=== PATIENT | female | born 1960 | race Caucasian/White ===

== ENCOUNTER 2019-01-27 00:48 | Outpatient (CLI) | payer MEDICAID, SELFPAY ==
--- NOTE | 2019-01-27 10:18 | DI.MAMMO_ITS ---
EXAM: MG MAMMO SCREENING CLINICAL HISTORY: SCREENING Z12.39... TECHNIQUE: Bilateral full field digital CC and MLO mammographic images were obtained with 3D tomosyn thesis and utilizing computer aided detection (CAD). COMPARISON: Available for comparison. FINDINGS: Masses/Architectural Distortion: None seen. Microcalcifications: No suspicious pleomorphic-type are seen. Skin Thickening/Nipple Retraction: None. IMPRESSION: 1. No significant interval change with no specific features of malignancy noted. 2. Unless there is more urgent need, screening mammography is recommended, as per [employer] guidelines. ACR BI-RAD Category- 1 Negative Breast Density - Category B - Scattered areas of fibroglandular density A negative radiographic report should not delay biopsy if a dominant or clinically suspicious mass is present. Up to ten percent of cancers are not identified on mammography. A negative report may reinforce clinical impression. Adenosis and dense breasts may obscure an underlying neoplasm. False positive reports average 6 to 10%.
== END 2019-01-27 01:08 ==
PROVIDERS: PCP Nurse Practitioner; Visit Provider Nurse Practitioner
DX: Z12.31 Encounter for screening mammogram for malignant neoplasm of breast (principal)
CPT/HCPCS: 77063; 77067

== ENCOUNTER 2019-01-27 09:38 | Outpatient (REF) | payer MEDICAID, SELFPAY ==
--- NOTE | 2019-01-27 09:20 | PAPFT_PTH ---
PATIENT: Fadia Galeana LOC: [facility] U#:[id number] AGE/SX: 58/F ROOM: RE01/27/[address]: Martha Elmore : 1960 BED: DIS: 01/27/2019 SPEC #: [id number] RECD: 01/27/19 13:03 STATUS: BLAKE REDayron #: [id number] HEIDI: 01/27/19 09:[address]: Martha Elmore DEPT: [facility] Cytology RECD BY: Dominga Drew ENTERED: 01/27/19 13:04 SP TYPE: PAPFT OTHR DR: Clara Solomon Tissues: 1 - CX/ENDOCX FOR PAP SMEARS Procedures: PAP THIN PREP/UVM Screening HPV DNA PROBE Comments: [id number]
== END 2019-01-27 09:58 ==
LOC: LBN 09:38
PROVIDERS: PCP Nurse Practitioner; Visit Provider Obstetrics & Gynecology Gynecology
DX: Z12.4 Encounter for screening for malignant neoplasm of cervix (principal); Z11.51 Encounter for screening for human papillomavirus (HPV)
CPT/HCPCS: 88142; 87624

== ENCOUNTER 2019-01-30 13:25 | Emergency (ER) | payer MEDICAID, SELFPAY ==
[2019-01-30 13:28] VITALS: BP 143/79; PULSE 82; RESP 18; TEMP 36.6; O2SAT 93
--- NOTE | 2019-01-30 13:40 | DI.RAD_ITS ---
EXAM: XR CHEST 2V PA AND LATERAL INDICATION: cough/sob. COMPARISON: CHEST 2 VIEWS PA,LAT from 09/25/2017 TECHNIQUE: 2D digital imaging was performed. FINDINGS: HEART IS NOT ENLARGED. LUNGS APPEAR CLEAR AND WELL EXPANDED. NO PLEURAL EFFUSION SEEN. IMPRESSION: NO EVIDENCE OF ACUTE INTRAPULMONARY PROCESS
--- NOTE | 2019-01-30 13:44 | ED.GENADUL_ITS ---
Discharge Plan Disposition Patient Disposition: HOME Condition: Improving Discharge Details Chief Complaint: RespSymp Clinical Impression: COPD exacerbation Primary Care Provider: Clara Solomon ED Provider: Carlee Saunders Home Meds and New Rx's Prescriptions: New azithromycin 250 mg tablet See Rx Instructions .ROUTE .COMPLEX Qty: 6 RF: 0 ipratropium-albuterol 0.5 mg-3 mg(2.5 mg base)/3 mL solution for nebulization 3 ml IH QID PRN (Reason: shortness of breath) Qty: 90 RF: 0 prednisone 10 mg tablet 10 mg PO DAILY Qty: 30 RF: 0 Continued albuterol sulfate [ProAir HFA] 8.5 GM HFA aerosol inhaler 2 gm Inhalation PRN PRNRF: 0 Symbicort 10.2 GM HFA aerosol inhaler 2 puff Inhalation BID RF: 0 ipratropium-albuterol 3 ML solution for nebulization 3 ml Inhalation PRN PRN (Reason: COPD) RF: 0 Anoro Ellipta 1 EACH blister with device 1 puff HHN DAILY RF: 0 Discharge Instructions Instructions: COPD (Chronic Obstructive Pulmonary Disease) (ED) Additional Instructions: Push fluids by mouth. Use nebulizer every 6 hours as discussed if needed for shortness of breath or wheezing. Use prednisone as prescribed. Antibiotic as prescribed. Follow-up promptly with your mold maker plaster and your primary care doctor. Return for any worsening or concerns sooner if needed Medical Decision Making Spoke with respiratory who did ambulating O2. O2 sats on ambulation 91%. Bedside ambulating O2 97% at rest with O2 monitor on the earlobe. Peripheral oxygen sensor reporting low 90s high 80s. Patient reports this is not atypical for her. Patient reports no difficulty breathing with ambulation. Will provide single dose of 60 mg steroid and then 40 mg with a taper. Respiratory will assist in patient getting a nebulizer machine for home as hers is broken. Encouraged close follow-up as an outpatient, respiratory therapy will reach out to her mold maker plaster to expedite appointment. Will provide antibiotic as patient has reported increased in febrile sensation and measured temperature in the last few days compared to the last 10 days of illness. Patient agrees with plan of care. Respiratory therapy did also evaluate the patient. She is well-known to the respiratory therapist as they have done pulmonary therapy together in the past. They did use an ear O2 when ambulating and identified no drop below 91%. No decompensation on ambulation. Patient able to ambulate without difficulty. Patient reports this is her baseline. Discussed the need for oxygen therapy on a baseline she has had in the past versus nebulizer machine at this time. Respiratory therapy will also encourage her mold maker plaster to fit her in sooner for reevaluation. At this time all parties involved feel comfortable with outpatient management and return for worsening. HPI General Date/Time Provider Initiated Documentation: 01/30/19 13:39 . HPI Narrative: Patient presents for complaints of cough and shortness of breath. Patient reports she has been sick with cough and cold symptoms for approximately 1-1/2 weeks. Patient reports nasal congestion, headache, sore throat and intermittently productive cough. Related Data Home Medications Medication Instructions Recorded Confirmed Symbicort 2 puff INHALATION BID 04/16/15 01/27/19 albuterol sulfate [ProAir HFA] 2 gm INHALATION PRN PRN 04/16/15 01/27/19 ipratropium-albuterol 3 ml INHALATION PRN PRN 08/19/15 01/27/19 Anoro Ellipta 1 puff HHN DAILY 09/25/17 01/27/19 azithromycin See Rx Instructions .ROUTE 01/30/19 .COMPLEX #6 tab ipratropium-albuterol 3 ml IH QID PRN #90 ml 01/30/19 prednisone 10 mg PO DAILY #30 tab 01/30/19 Previous Rx's Medication Instructions Recorded azithromycin See Rx Instructions .ROUTE 01/30/19 .COMPLEX #6 tab ipratropium-albuterol 3 ml IH QID PRN #90 ml 01/30/19 prednisone 10 mg PO DAILY #30 tab 01/30/19 Allergies Allergy/AdvReac Type Severity Reaction Status Date / Time naproxen sodium [From Aleve] AdvReac Mild Nausea Unverified 01/27/19 09:07 General Stated Complaint: RespSymp CHRIS: 3 Review of Systems Review of Systems Narrative: CONSTITUTIONAL: Reports fevers, chills in the last few days. EYES: Denies vision changes, blurry vision, or eye pain. ENT: Denies hearing changes, tinnitus, vertigo, sore throat. CARDIAC: Denies chest pain. Shortness of breath present when ambulating RESPIRATORY: Denies difficulty breathing. Wheezing, cough, production GASTROINTESTINAL: Denies abdominal pain, changes in bowel, vomiting or nausea. GENITOURINARY: Denies dysuria, or frequency of urination. MUSCULOSKELETAL: Denies Joint pain, gait changes. NEUROLOGIC: Denies headaches, Denies focal weakness. Denies numbness. INTEGUMENT: Denies rashes. PSYCHIATRIC: Denies behavior changes. Denies anxiety or depression. ENDOCRINOLOGY: Denies fatigue. 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 Tobacco use (Acute) 01/2019 patient reports 2 cigarettes/day Surgical History Fistula, anal (Resolved) Repaired with 2003 H/O tubal ligation (Chronic) 1986 Social History Smoking/Tobacco Use Status: Former Tobacco Use Alcohol Intake: never Drug use: Never Substance use type: does not use Do you feel safe at home: Yes Do you feel safe in your relationship?: Yes History History 4 Para Hx # Term Pregnancies 2 Multiple births Hx # Pregnancies Ectopic pregnancies AB induced Hx Number of Living Children AB spontaneous Exam Narrative Exam Narrative: CONST: Healthy appearing patient, in no acute distress. Well hydrated. Alert and alert. HENMT: Head nomocephalic, normal to inspection. Atraumatic. Hearing grossly normal. EYES: General normal appearance. Alignment normal. Eyelids normal. Conjunctiva normal. NECK: Normal visual inspection. FROM. Trachea midline. No Midline tenderness. CHEST: Normal insepection of the chest. RESP: Normal respiratory effort. Speaking full sentences. Patient with diffuse wheezing noted throughout all lung rose. No retractions. CARDIO: No JVD. MUSCULOSKELETAL: Normal Gait. FROM of all extremities. SKIN: Normal. Dry. No rashes. NEURO: Alert and awake. Speech clear. PSYCH: Normal affect. Cooperative. Course Vital Signs Vital signs: Vital Signs Temperature 36.6 C 01/30/19 13:28 Pulse 82 01/30/19 13:28 Respiratory Rate 18 01/30/19 13:28 Blood Pressure 143/79 H 01/30/19 13:28 Pulse Oximetry 93 L 01/30/19 13:28 Temperature 36.6 C 01/30/19 13:28 Temperature Source Skin 01/30/19 13:28 Pulse 82 01/30/19 13:28 Respiratory Rate 18 01/30/19 13:28 Blood Pressure 143/79 H 01/30/19 13:28 Blood Pressure Position Sitting 01/30/19 13:28 Pulse Oximetry 93 L 01/30/19 13:28 Oxygen Delivery Method Room Air 01/30/19 13:28 Oxygen Flow Rate 0 01/30/19 13:28
[2019-01-30 13:45] VITALS: RESP 4; O2SAT 90
[2019-01-30] MEDS: Albuterol/Ipratropium 3 ML UPD VIAL UPD ×2 (13:45→14:29)
[2019-01-30 14:28] LABS: Lactate 1.2 mmol/L (0.6-1.4)
[2019-01-30 14:29] VITALS: PULSE 86; O2SAT 92
[2019-01-30 14:31] LABS: Abs Immature Grans 0.08 k/cumm (0.0-0.09); Absolute Basophil Count 0.03 k/cumm (0.0-0.2); Absolute Eosinophil Count 0.11 k/cumm (0.0-0.7); Absolute Lymphocyte Count 2.25 k/cumm (1.2-3.4); Absolute Monocyte Count 0.73 k/cumm (0.11-0.7); Absolute Neutrophil Count 5.83 k/cumm (1.2-6.7); Basophils % 0.3; Eosinophils % 1.2; HCT 49.1 % (36.0-46.0); HGB 15.9 g/dL (12.0-15.5); Immature Grans % 0.9; Lymphocytes % 24.9; Mean Corp. HGB Concentration 32.4 g/dL (32.0-36.0); Mean Corpuscular Hemoglobin 27.7 pg (27.0-33.0); Mean Corpuscular Volume 85.4 fL (80-95); Mean Platelet Volume 9.7 fL (8.0-11.0); Monocytes % 8.1; Neutrophils % 64.6; Platelet Count 119 x1000/uL (130-400); RBC 5.75 m/cumm (4.00-5.20); RBC Distribution Width 14.2 % (11.7-14.6); White Blood Cell Count 9.03 k/cumm (4.4-10.8)
[2019-01-30 14:49] LABS: ALT 16 U/L (14-59); AST 15 U/L (15-37); Albumin 3.6 g/dL (3.4-5.0); Alkaline Phosphatase 112 U/L (46-116); BUN 15 mg/dL (7-18); Bilirubin, Total 0.4 mg/dL (0.2-1.0); CREATININE 0.78 mg/dL (0.55-1.02); Calcium 8.7 mg/dL (8.5-10.1); Chloride 105 mmol/L (98-107); Glucose 96 mg/dL (70-100); Potassium 3.6 mmol/L (3.5-5.1); Sodium 142 mmol/L (136-145); Total Protein 7.4 g/dL (6.4-8.2)
[2019-01-30] MEDS: predniSONE 20 MG TAB 60 MG PO (15:38)
[2019-01-30 15:59] VITALS: BP 112/69; PULSE 98; RESP 18; TEMP 37.1; O2SAT 92
== END 2019-01-30 16:20 | disposition home or self-care (01) ==
PROVIDERS: Emergency Provider Physician Assistant; PCP Nurse Practitioner
DX: J44.1 Chronic obstructive pulmonary disease with (acute) exacerbation (principal); J00 Acute nasopharyngitis [common cold]; F17.210 Nicotine dependence, cigarettes, uncomplicated
CPT/HCPCS: 36415; 80053; 94640; 99284; 71046; 83605; 85025; J7512; J7620

== ENCOUNTER 2019-02-18 17:20 | Outpatient (REF) | payer MEDICAID, SELFPAY ==
[2019-02-18 15:30] LABS: Bilirubin Negative (Negative); Blood Trace-intact (Negative); Clarity Clear (Clear); Glucose Negative (Negative); Ketones Negative (Negative); Leukocyte Esterase Negative (Negative); Nitrite Negative (Negative); Specific Gravity 1.015 (1.005-1.025); Urobilinogen 0.2 EU/dL (Up TO 0.2)
[2019-02-18 15:45] LABS: Bacteria Negative HPF (Negative); C & S Indicated? No; Casts Negative LPF (Negative); Crystals Negative HPF (Negative); Epithelial Cells Rare HPF (Negative); Mucus Negative (Negative); Other Cells Negative (Negative); RBC 0-2 (0-2); WBC Negative HPF (0-5)
== END 2019-02-18 17:40 ==
LOC: LBN 17:20
PROVIDERS: PCP Nurse Practitioner; Visit Provider Nurse Practitioner Gerontology
DX: R31.9 Hematuria, unspecified (principal)
CPT/HCPCS: 81003; 81015

== ENCOUNTER 2019-03-27 12:45 | Outpatient (RCR) | payer MEDICAID, SELFPAY | END 2019-04-12 23:59 | disposition home or self-care (01) | LOC: PRC 12:45 | PROVIDERS: PCP Nurse Practitioner; Visit Provider Family Medicine | DX: Z51.89 Encounter for other specified aftercare (principal) ==

== ENCOUNTER 2019-04-03 03:46 | Outpatient (RCR) | payer MEDICAID, SELFPAY | END 2019-04-12 23:59 | disposition home or self-care (01) | LOC: PRC 03:46 | PROVIDERS: PCP Nurse Practitioner; Visit Provider Family Medicine | DX: Z51.89 Encounter for other specified aftercare (principal) ==

== ENCOUNTER 2019-11-27 16:15 | Outpatient (REF) | payer MEDICAID, SELFPAY ==
--- NOTE | 2019-11-27 15:00 | SKI_PTH ---
PATIENT: Fadia Galeana LOC: [facility] U#:[id number] AGE/SX: 59/F ROOM: RE11/27/[address]: Mingo Quezada : 1960 BED: DIS: 11/27/2019 SPEC #: [id number] RECD: 11/27/19 18:17 STATUS: BLAKE REQ #: [id number] HEIDI: 11/27/19 15:[address]: Mingo Quezada DEPT: Surgical Specimen RECD BY: Dominga Drew ENTERED: 11/27/19 18:17 SP TYPE: SARA FIELD DR: Clara Solomon Tissues: 1 - SKIN CYST/TAG/DEBRIDEMENT Procedures: SKIN LEVEL 4 Comments: [id number]
== END 2019-11-27 16:35 ==
LOC: NCHCN 16:15
PROVIDERS: PCP Nurse Practitioner; Visit Provider Family Medicine
DX: B07.8 Other viral warts (principal)
CPT/HCPCS: 88304; 88305

== ENCOUNTER 2020-02-09 16:26 | Outpatient (REF) | payer MEDICAID, SELFPAY ==
[2020-02-11 15:09] LABS: Patient Race White; SARS-CoV-2 RNA Undetected (Undetected); SARS-CoV-2 Specimen Source Nasal
== END 2020-02-09 16:46 ==
LOC: NCHCN 16:26
PROVIDERS: PCP Nurse Practitioner; Visit Provider Nurse Practitioner Family
DX: R06.02 Shortness of breath (principal)
CPT/HCPCS: U0003

== ENCOUNTER 2020-03-10 02:35 | Outpatient (CLI) | payer MEDICAID, SELFPAY ==
--- NOTE | 2020-03-10 12:55 | DI.CTLCSR_ITS ---
EXAM: CT CHEST LUNG CANCER SCREEN CLINICAL HISTORY: SCREENING FOR LUNG CA,CURRENT SMOKER, F17.200 TECHNIQUE: COMPARISON: CT CHEST - LUNG CANCER SCREENING from 10/23/2017 FINDINGS: CT examination of chest was performed utilizing low-dose lung cancer screening protocol. Examination is of somewhat limited technical quality due to the patient's body habitus. There appear to be pulm onary emphysematous changes. No focal consolidation. No pulmonary nodule seen. No pleural effusion or pleural-based mass. Note is made of coronary artery calcification. There is no mediastinal or hilar adenopathy by noncon trast criteria. Tracheobronchial tree appears intact. Images obtained through the upper abdomen are of limited technical quality, no gross abnormality of t he liver or spleen. IMPRESSION: No pulmonary nodule identified. Lung RADS Cat 1 - Negative: No nodules and definitely benign nodules Continue annual screening with LD CT in 12 months. RADIATION DOSE DELIVERED: 90.59mGy.cm Total DLP
== END 2020-03-10 02:55 ==
PROVIDERS: PCP Nurse Practitioner; Visit Provider Internal Medicine
DX: F17.210 Nicotine dependence, cigarettes, uncomplicated (principal)
CPT/HCPCS: G0297

== ENCOUNTER 2020-03-11 08:09 | Emergency (ER) | payer MEDICAID, SELFPAY ==
[2020-03-11] VITALS (21 sets, daily range): BP systolic 117–150; BP diastolic 58–78; PULSE 83–89; RESP 4–8; TEMP 37.2; O2SAT 88–96
--- NOTE | 2020-03-11 08:15 | RT.EKG_ITS ---
APPROVED REPORT Exam: Resting ECG Patient Location: E HR:88 bpm ECG Measurements Heart Rate 88 AXIS SC 152 P 82 QRSd 83 QRS -4 QT 343 T 52 QTc 416 Conclusion Sinus rhythm...normal P axis, V-rate 60- 99 Low voltage, extremity and precordial leads...extremity<0.5mV, precordial<1.0mV. No acute change from previous. I have reviewed and interpreted ECG and agree with software generated interpretation.
--- NOTE | 2020-03-11 08:32 | ED.GENADUL_ITS ---
Discharge Plan Disposition Patient Disposition: HOME Condition: Stable Discharge Details Clinical Impression: COPD exacerbation Primary Care Provider: Clara Solomon ED Provider: Sue Cuevas Home Meds and New Rx's Prescriptions: New prednisone 20 mg tablet 60 mg PO DAILY 5 Days Qty: 15 RF: 0 Continued (DME) Briefs, Adult-Extra Large [facility] See Rx Instructions .ROUTE .MEDSUPPLY Qty: 120 RF: 11 All Day Allergy (cetirizine) 10 mg capsule 10 mg PO DAILY RF: 0 albuterol sulfate [ProAir HFA] 8.5 GM HFA aerosol inhaler 2 gm Inhalation PRN PRNRF: 0 budesonide-formoterol [Symbicort] 10.2 GM HFA aerosol inhaler 2 puff Inhalation BID RF: 0 ipratropium-albuterol 0.5 mg-3 mg(2.5 mg base)/3 mL solution for nebulization 3 ml IH QID PRN (Reason: shortness of breath) Qty: 90 RF: 0 Anoro Ellipta 1 EACH blister with device 1 puff HHN DAILY RF: 0 Discharge Instructions Instructions: COPD (Chronic Obstructive Pulmonary Disease) (ED) Additional Instructions: Follow up with primary care provider in 3-5 days. Return to ED sooner if any worsening or concerns. Increase oral fluids. Take prednisone as directed. Take your inhalers as previously prescribed. Return for any fever, productive cough. Please keep your previously scheduled appointment. Referrals: Clara Solomon [Primary Care Provider] - Medical Decision Making 59-year-old female presents to the ED with chief complaint of COPD exacerbation. She reports shortness of breath that began approximately 2 weeks ago and has worsened over time. She states that she finished a stent of prednisone 2 weeks ago at that time and that is when the shortness of breath returned. She has bilateral expiratory wheezing throughout all lung rose. She denies any chest pain, nausea vomiting diarrhea, or fever. She does endorse chills. She also reports increased swelling to her bilateral lower extremities which began approximately 2 to 3 days ago. She does have a history of COPD, obesity, depression, and is a former smoker. 08 43: Respiratory at bedside for nebulizer treatment. At this time a DuoNeb was ordered. Patient is satting 96% on room air, work-up ordered including CBC, CMP, troponin, EKG, chest x-ray and proBNP due to the lower extremity swelling to rule out CHF exacerbation. 49: EKG was reviewed by Shirley Sandra MD ER attending, please see her official reading and report. 14: Spoke with RT after nebulizer treatment, patient improved somewhat with rest and nebulizer treatment. She did take her inhalers this morning but not her nebulizers. At this time labs are pending. EXAM: XR PORTABLE CHEST AP CLINICAL HISTORY: SOB, Hx COPD, PUI. TECHNIQUE: 2D digital imaging was performed. COMPARISON: CR XR CHEST 2V PA LATERAL from 01/30/2019 FINDINGS: LUNGS: Clear. No pleural abnormality seen. HEART: Normal. MEDIASTINUM: Normal. OTHER FINDINGS: None. IMPRESSION: No acute pulmonary findings. Discussed results with patient and reevaluation she reports that she feels much better after the nebulizer treatment. O2 sats are resting around 89 to 92% on room air. I explained that this is what she normally runs, she does have a PCP appointment tomorrow regarding placing patient on home O2 which I feel will improve her symptoms at this time. There is no evidence for pneumonia labs are all largely within normal limits. CBC shows W white blood cell count of 10.44, RBCs 5.51, platelets are 121, sodium is 141, potassium 4.5, anion gap is 1.8, BUN 20, creatinine 0.87 GFR is greater than 60. BNP is 100. Troponin is less than 0.05. Urinalysis shows trace blood no leukocyte or nitrites. Discussed strict return instructions, verbalized understanding. Instructed to keep her appointment tomorrow as previously scheduled. Medical Records Medical records reviewed: Yes I reviewed the patient's medical records. Medical records narrative: Patient had a CT of her chest yesterday, IMPRESSION: No pulmonary nodule identified. Lung RADS Cat 1 - Negative: No nodules and definitely benign nodules Continue annual screening with LD CT in [address] shows pulmonary emphysema, test changes. No focal consolidation. No pleural effusion or pleural-based mass. HPI General Mode of arrival: ambulatory . Date/Time Provider Initiated Documentation: 03/11/20 08:12 . Limitations to Documentation: no limitations . Information obtained by: patient . HPI Narrative: 59-year-old female presents to the ED with chief complaint of COPD exacerbation. She reports shortness of breath that began approximately 2 weeks ago and has worsened over time. She states that she finished a stent of prednisone 2 weeks ago at that time and that is when the shortness of breath returned. She has bilateral expiratory wheezing throughout all lung rose. She denies any chest pain, nausea vomiting diarrhea, or fever. She does endorse chills. She also reports increased swelling to her bilateral lower extremities which began approximately 2 to 3 days ago. She does have a history of COPD, obesity, depression, and is a former smoker. Related Data Home Medications Medication Instructions Recorded Confirmed albuterol sulfate [ProAir HFA] 2 gm INHALATION PRN PRN 04/16/15 03/11/20 budesonide-formoterol [Symbicort] 2 puff INHALATION BID 04/16/15 03/11/20 Anoro Ellipta 1 puff HHN DAILY 09/25/17 03/11/20 ipratropium-albuterol 3 ml IH QID PRN #90 ml 01/30/19 03/11/20 diaper,brief,adult,disposable #120 each 05/13/19 10/21/19 cetirizine 10 mg capsule 10 mg PO DAILY 10/17/19 03/11/20 prednisone 60 mg PO DAILY 5 Days #15 tab 03/11/20 Previous Rx's Medication Instructions Recorded ipratropium-albuterol 3 ml IH QID PRN #90 ml 01/30/19 diaper,brief,adult,disposable #120 each 05/13/19 prednisone 60 mg PO DAILY 5 Days #15 tab 03/11/20 Allergies Allergy/AdvReac Type Severity Reaction Status Date / Time No Known Allergies Allergy Verified 03/11/20 08:22 General Stated Complaint: RespSymp CHRIS: 3 Review of Systems Narrative: Constitutional: Negative for weight loss, alert and oriented, well groomed, obese body habitus, appears comfortable. HEENT: Denies trauma, headaches, blurry vision, nasal discharge, sore throat, trouble swallowing. Chest: Denies chest pain, palpitations, irregular rhythm, hypertension. Respiratory: Denies cough, hemoptysis. Positive shortness of breath history of COPD. GI: Denies abdominal pain, nausea, vomiting, diarrhea, constipation. : Denies dysuria, hematuria, flank pain, rectal bleeding. Extremities: Reports increased bilateral lower extremity swelling for the last few days. Neuro: Denies dizziness, blurry vision, weakness, syncope, headache or facial numbness. Hematologic: Denies easy bruising, intolerance to heat or cold, hair loss. 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 Patient was referred to urology at [facility] for assessment and treatment Varicose veins of both lower extremities Surgical History Fistula, anal Repaired with 2003 H/O tubal ligation 1986 Social History Smoking/Tobacco Use Status: Former Tobacco Use Smoking risk assessment performed?: Yes Alcohol Intake: never Drug use: Never Substance use type: does not use Current gender identity: female Do you feel safe at home: Yes Do you feel safe in your relationship?: Yes History History 4 Para Hx # Term Pregnancies 2 Multiple births Hx # Pregnancies Ectopic pregnancies AB induced Hx Number of Living Children AB spontaneous Exam Narrative Exam Narrative: Constitutional: Alert and oriented x3. Appears stated age. Obese body habitus. Head: Normocephalic, no trauma. Eyes: Pupils PERRLA, Red reflex noted, EOM's intact. Eyelids symmetrical without lesions, discharge, or swelling. ENT: Bilateral TM's WNL, External ear normal to inspection, no mastoid TTP, swelling, or erythema, Nasal turbinates WNL, no nasal discharge. Normal dentition, Posterior pharynx WNL, no exudate. Chest: RRR, Normal S1, S2, distal pulses intact. Resp: Lungs have bilateral expiratory wheezes throughout, no rales, or rhonchi. Musculoskeletal: Normal gait, 5/5 strength to all four extremities. 2+ pitting edema noted to the bilateral lower extremities, erythema noted. Skin: No suspicious rashes or lesions. Capillary refill less than 2 sec. Neurologic: Cranial nerves II-XII intact. Alert and oriented x 3. DTR's intact. Hematologic/Lymphatic: No ecchymosis, no lymphadenopathy. Course Vital Signs Vital signs: Vital Signs Temperature 37.2 C 10/29/20 08:17 Pulse 88 03/11/20 08:17 Blood Pressure 150/68 H 03/11/20 08:17 Pulse Oximetry 96 03/11/20 08:17 Temperature 37.2 C 03/11/20 08:17 Temperature Source Oral 03/11/20 08:17 Pulse 88 03/11/20 08:17 Blood Pressure 150/68 H 03/11/20 08:17 Blood Pressure Position Sitting 03/11/20 08:17 Pulse Oximetry 96 03/11/20 08:17 Oxygen Delivery Method Room Air 03/11/20 08:17 Oxygen Flow Rate 0 03/11/20 08:17 Pain Level 8 03/11/20 08:17
[2020-03-11] MEDS: Albuterol/Ipratropium 3 ML UPD VIAL UPD (08:45)
[2020-03-11 08:55] LABS: Abs Immature Grans 0.14 10^3/uL (0.0-0.06); Absolute Basophil Count 0.06 10^3/uL (0.0-0.2); Absolute Eosinophil Count 0.09 10^3/uL (0.0-0.7); Absolute Lymphocyte Count 1.36 10^3/uL (1.2-3.4); Absolute Monocyte Count 0.66 10^3/uL (0.1-0.8); Absolute Neutrophil Count 8.13 10^3/uL (1.2-6.7); Basophils % 0.6; Eosinophils % 0.9; HCT 48.8 % (36.0-46.0); HGB 15.1 g/dL (11.2-15.7); Immature Grans % 1.3; MCH 27.4 pg (27.0-33.0); MCHC 30.9 % (32.0-36.0); MCV 88.6 fL (80-95); MPV 9.5 fL (8.0-11.0); Monocytes % 6.3; Neutrophils % 77.9; Nucleated RBC 0 %; Platelet Count 121 10^3/uL (130-400); RBC 5.51 10^6/uL (3.93-5.22); RDW 14.5 % (11.7-14.6); RDW-SD 46.9 fL; WBC 10.44 10^3/uL (4.4-10.8)
[2020-03-11] MEDS: methylPREDNISolone SUCC 125 MG VIAL IVP (08:56)
[2020-03-11 09:03] LABS: Bilirubin Negative (Negative); Blood Trace-intact (Negative); Clarity Clear (Clear); Glucose Negative (Negative); Ketones Negative (Negative); Leukocyte Esterase Negative (Negative); Nitrite Negative (Negative); Specific Gravity 1.025 (1.005-1.025); Urobilinogen 0.2 EU/dL (Up TO 0.2)
[2020-03-11 09:12] LABS: Bacteria Negative HPF (Negative); C & S Indicated? No; Casts Negative LPF (Negative); Crystals Negative HPF (Negative); Epithelial Cells Few HPF (Negative); Mucus Negative (Negative); RBC 0-2 HPF (0-2); WBC 0-2 HPF (0-5)
[2020-03-11 09:14] LABS: ALT 23 U/L (14-59); AST 20 U/L (15-37); Albumin 3.5 g/dL (3.4-5.0); Alkaline Phosphatase 114 U/L (46-116); Anion Gap 1.8 mmol/L (3-11); BUN 20 mg/dL (7-18); Bilirubin, Total 0.5 mg/dL (0.2-1.0); CO2 34.2 mmol/L (21.0-32.0); CREATININE 0.87 mg/dL (0.55-1.02); Calcium 9.3 mg/dL (8.5-10.1); Chloride 105 mmol/L (98-107); Glucose 104 mg/dL (74-106); Potassium 4.5 mmol/L (3.5-5.1); Sodium 141 mmol/L (136-145); Total Protein 7.4 g/dL (6.4-8.2)
[2020-03-11 09:18] LABS: Troponin I < 0.05 ng/mL (<0.06)
[2020-03-11 09:20] LABS: Magnesium 2.2 mg/dL (1.8-2.4); NT-proBNP 100 pg/mL (<300)
== END 2020-03-11 10:43 | disposition home or self-care (01) ==
PROVIDERS: Emergency Provider Registered Nurse Emergency; PCP Nurse Practitioner
DX: J44.1 Chronic obstructive pulmonary disease with (acute) exacerbation (principal); Z87.891 Personal history of nicotine dependence
CPT/HCPCS: 80053; 93005; 94640; 96374; 99284; 71045; 81003; 81015; 83735; 83880; 84484; 85025; 93010; J2930; J7620

== ENCOUNTER 2020-04-09 04:34 | Outpatient (CLI) | payer MEDICAID, SELFPAY ==
[2020-04-10 11:52] LABS: SARS-CoV-2 RNA Not Detected (NotDetected); SARS-CoV-2 RNA Source Nasal/Nares
== END 2020-04-09 04:54 ==
PROVIDERS: PCP Nurse Practitioner; Visit Provider Internal Medicine
DX: Z11.59 Encounter for screening for other viral diseases (principal); Z01.818 Encounter for other preprocedural examination
CPT/HCPCS: U0003

== ENCOUNTER 2020-05-12 19:48 | Outpatient (REF) | payer MEDICAID, SELFPAY ==
[2020-05-12 20:09] LABS: Anion Gap 7.1 mmol/L (3-11); BUN 16 mg/dL (7-18); CO2 30.9 mmol/L (21.0-32.0); CREATININE 0.85 mg/dL (0.55-1.02); Calcium 8.8 mg/dL (8.5-10.1); Chloride 105 mmol/L (98-107); Glucose 86 mg/dL (74-106); Sodium 143 mmol/L (136-145)
== END 2020-05-12 20:08 ==
LOC: NCHCN 19:48
PROVIDERS: PCP Nurse Practitioner; Visit Provider Nurse Practitioner
DX: R60.9 Edema, unspecified (principal); R03.0 Elevated blood-pressure reading, without diagnosis of hypertension
CPT/HCPCS: 80048

== ENCOUNTER 2020-07-21 13:37 | Outpatient (REF) | payer MEDICAID, SELFPAY ==
[2020-07-21 19:37] LABS: Absolute Basophil Count 0.07 10^3/uL (0.0-0.2); Absolute Eosinophil Count 0.16 10^3/uL (0.0-0.7); Absolute Monocyte Count 0.96 10^3/uL (0.1-0.8); Basophils % 0.6; Eosinophils % 1.4; HCT 49.6 % (36.0-46.0); HGB 15.7 g/dL (11.2-15.7); Immature Grans % 0.9; Lymphocytes % 16.1; MCH 27.3 pg (27.0-33.0); MCHC 31.7 % (32.0-36.0); MCV 86.1 fL (80-95); Monocytes % 8.6; Neutrophils % 72.4; Nucleated RBC 0 %; Platelet Count 106 10^3/uL (130-400); RBC 5.76 10^6/uL (3.93-5.22); RDW 14.5 % (11.7-14.6); RDW-SD 45.9 fL; WBC 11.21 10^3/uL (4.4-10.8)
[2020-07-21 19:42] LABS: Absolute Neutrophil Count 8.12 10^3/uL (1.2-6.7)
== END 2020-07-21 13:38 | disposition home or self-care (01) ==
LOC: NCHCN 13:37
PROVIDERS: PCP Nurse Practitioner; Visit Provider Nurse Practitioner
DX: D47.3 Essential (hemorrhagic) thrombocythemia (principal)
CPT/HCPCS: 85025

== ENCOUNTER 2020-09-02 14:03 | Outpatient (CLI) | payer MEDICAID, SELFPAY ==
--- NOTE | 2020-09-02 | DI.RAD_ITS ---
EXAM: XR CHEST 2V PA LATERAL CLINICAL HISTORY: ACUTE EXAC COPD,J44.1. TECHNIQUE: 2D digital imaging was performed. COMPARISON: CR CHEST 2 VIEWS PA,LAT from 09/05/2016 CR CHEST 2 VIEWS PA,LAT from 09/13/2016 CR CHEST 2 VIEWS PA,LAT from 09/25/2017 CR XR CHEST 2V PA LATERAL from 01/30/2019 CR XR PORTABLE CHEST AP from 03/11/2020 FINDINGS: Heart size is normal. The mediastinum is not widened. Mild increased markings adjacent to the left heart border noted, unchanged from 2017. No new confluent infiltrates nor pleural effusions. Thorax IMPRESSION: No acute pulmonary findings. DATA REPOSITORY: RADIATION DOSE DELIVERED:
--- NOTE | 2020-09-02 16:20 | DI.VRAD_ITS ---
PROCEDURE INFORMATION: Exam: XR Chest Exam date and time: 09/02/2020 4:02 PM Age: 59 years old Clinical indication: Acute exac copd TECHNIQUE: Imaging protocol: XR of the chest. Views: 2 views. COMPARISON: CR XR PORTABLE CHEST AP 03/11/2020 9:39 AM FINDINGS: Lungs: Emphysematous changes. No evidence of pneumonia, pulmonary vascular congestion, or pulmonary edema. Pleural spaces: No pneumothorax. No sizable pleural effusion. Heart/Mediastinum: No cardiomegaly. Bones/joints: Unremarkable. IMPRESSION: Emphysematous changes. No evidence of pneumonia, pulmonary vascular congestion, or pulmonary edema. Dictated and Authenticated by: Linwood Mccarty MD. Ordering:MARLEE Foster MD
== END 2020-09-02 14:23 ==
PROVIDERS: PCP Nurse Practitioner; Visit Provider Physician Assistant Medical
DX: J44.1 Chronic obstructive pulmonary disease with (acute) exacerbation (principal)
CPT/HCPCS: 71046

== ENCOUNTER 2020-09-02 14:47 | Outpatient (REF) | payer MEDICAID, SELFPAY ==
[2020-09-04 12:20] LABS: COVID-19 RT-PCR UVMMC Result Negative (Negative)
== END 2020-09-02 14:48 | disposition home or self-care (01) ==
LOC: LBN 14:47
PROVIDERS: PCP Nurse Practitioner; Visit Provider Physician Assistant Medical
DX: Z20.822 Contact with and (suspected) exposure to COVID-19 (principal); J06.9 Acute upper respiratory infection, unspecified
CPT/HCPCS: U0003

== ENCOUNTER 2020-11-09 11:43 | Emergency (ER) | payer MEDICAID, SELFPAY ==
[2020-11-09] VITALS (14 sets, daily range): BP systolic 100–162; BP diastolic 59–82; PULSE 78–88; RESP 10–20; TEMP 37.2; O2SAT 89–95
--- NOTE | 2020-11-09 11:45 | DI.RAD_ITS ---
Exam(s) XR CHEST 2V PA LATERAL EXAM: XR CHEST 2V PA LATERAL CLINICAL HISTORY: chf TECHNIQUE: 2D digital imaging was performed. COMPARISON: CR XR CHEST 2V PA LATERAL from 01/30/2019 CR XR CHEST 2V PA LATERAL from 01/30/2019 CR XR PORTABLE CHEST AP from 03/11/2020 CR XR PORTABLE CHEST AP from 03/11/2020 CR,XR XR CHEST 2V PA LATERAL from 09/02/2020 FINDINGS: The heart is not enlarged. The lungs are clear and well expanded. No pleural effusion seen. Mediastin al contours appear intact. IMPRESSION: Normal chest. RADIATION DOSE DELIVERED: Total DLP
--- NOTE | 2020-11-09 12:00 | RT.EKG_ITS ---
APPROVED REPORT Exam: Resting ECG Reason for Exam: sob Patient Location: E HR:89 bpm ECG Measurements Heart Rate 89 AXIS CO 157 P 72 QRSd 88 QRS 122 QT 362 T 36 QTc 440 Conclusion Sinus rhythm...normal P axis, V-rate 60- 99 Low voltage with right axis deviation...low voltage, RAD Consider anterior infarct...Q >30mS in V2-V5 Physician: no stemi
--- NOTE | 2020-11-09 12:28 | W.ED.GENAD ---
Discharge Plan Disposition Patient Disposition: HOME Condition: Stable Discharge Details Clinical Impression: Peripheral edema Primary Care Provider: Clara Solomon ED Provider: Dc Dueñas Home Meds and New Rx's Prescriptions: Continued (DME) Briefs, Adult-Extra Large [facility] [place] Rx Instructions .ROUTE .MEDSUPPLY Qty: 120 RF: 11 All Day Allergy (cetirizine) 10 mg capsule 10 mg PO DAILY RF: 0 albuterol sulfate [ProAir HFA] 8.5 GM HFA aerosol inhaler 2 gm Inhalation PRN PRNRF: 0 budesonide-formoterol [Symbicort] 10.2 GM HFA aerosol inhaler 2 puff Inhalation BID RF: 0 ipratropium-albuterol 0.5 mg-3 mg(2.5 mg base)/3 mL solution for nebulization 3 ml IH QID PRN (Reason: shortness of breath) Qty: 90 RF: 0 chlorthalidone 25 mg tablet 12.5 mg PO DAILY RF: 0 Anoro Ellipta 1 EACH blister with device 1 puff HHN DAILY RF: 0 Discharge Instructions Instructions: Edema (ED) Additional Instructions: Your evaluation today does not show any signs of heart failure, infection, renal insufficiency, etc. I believe this is likely dependent edema. As we discussed, I recommend increasing your chlorthalidone dose to 25 mg daily, wearing appropriate size compression stockings, and being sure to elevate your feet. Please watch for new or worsening symptoms and return to the ER for any concerns. I do recommend contacting your primary care provider to make them aware of your ER visit, ongoing symptoms and need for outpatient reevaluation. As we discussed, I am increasing your dose today but if your symptoms persist this medication can likely be increased again. Discharge Data Discharge Date/Time-TO BE ENTERED AT DEPARTURE: 11/09/20 14:30 Medical Decision Making This is a 60-year-old female, past medical history of COPD, morbid obesity, obstructive sleep apnea, who is reported bilateral pedal edema for at least 1 year, she was initially on a diuretic, unsure of that name, and then recently changed to 12.5 mg of chlorthalidone. Patient reports that this medication is not really working well. She denies recent illness or trauma. She denies fever, productive cough, chest pain, or worsening short of breath compared to her baseline COPD. Clinically she speaks in full sentences, lungs are diminished at the bases and have rare expiratory wheeze that primarily clear with coughing. She does not appear to be in respiratory distress, O2 sats are 92% on room air. Her legs have 2+ pitting edema bilaterally with chronic venous stasis changes but there is no weeping, erythema, warmth, calf discomfort, and is negative Homans' sign bilaterally. Differential includes but not excluded to CHF, pedal edema, renal insufficiency, cellulitis, extremely low suspicion for acute bilateral DVTs. Will initiate IV access, obtain a single troponin, routine laboratory values, BNP for further evaluation of passive heart failure, and reassess. Chest x-ray read by me as negative White blood cell count of 9.58, electrolytes unremarkable, creatinine 0.8 with GFR greater than 60. Calcium 8.9 magnesium 2.4, troponin less than 0.05. Her initial x-ray and laboratory values are unremarkable. Given the duration of her symptoms I see no indication for serial troponin and or EKG. Upon reevaluation she still appears well, nontoxic, no respiratory distress. She is speaking in full sentences, she is not tachypneic. Her laboratory values do not reveal any obvious emergent process. We discussed that she is on a rather low dose of chlorthalidone and I would like her to double her dose, I also stressed the importance of elevation and wearing her compression stockings as directed. She will also monitor her fluid intake. She was encouraged to return to the ER for new or worsening symptoms, otherwise she will reach out to her primary care doctor to discuss her ongoing symptoms and potential need for more aggressive medication regimen. Patient and daughter are comfortable with this plan and have no additional questions or concerns. Medical Records Medical records reviewed: Yes I reviewed the patient's medical records. Imaging Data Radiologic Study: Attestation: I personally reviewed and interpreted this imaging study as follows: Imaging: X-Ray Radiologist's impression: EXAM: XR CHEST 2V PA LATERAL CLINICAL HISTORY: chf TECHNIQUE: 2D digital imaging was performed. COMPARISON: CR XR CHEST 2V PA LATERAL from 01/30/2019 CR XR CHEST 2V PA LATERAL from 01/30/2019 CR XR PORTABLE CHEST AP from 03/11/2020 CR XR PORTABLE CHEST AP from 03/11/2020 CR,XR XR CHEST 2V PA LATERAL from 09/02/2020 FINDINGS: The heart is not enlarged. The lungs are clear and well expanded. No pleural effusion seen. Mediastinal contours appear intact. IMPRESSION: Normal chest. Lab Data Lab results reviewed: Yes I reviewed the patient's lab results. Labs: Laboratory Tests Range/Units 11/09/20 11/09/20 11/09/20 13:10 13:10 13:10 WBC (4.4-10.8) 10^3/uL 9.58 RBC (3.93-5.22) 10^6/uL 6.08 H Hgb (11.2-15.7) g/dL 16.3 H Hct (36.0-46.0) % 52.6 H MCV (80-95) fL 86.5 MCH (27.0-33.0) pg 26.8 L MCHC (32.0-36.0) % 31.0 L RDW (11.7-14.6) % 14.6 Plt Count (130-400) 10^3/uL 132 MPV (8.0-11.0) fL 9.3 Immature Gran % 0.8 Neutrophils % 70.1 Lymphocytes % 18.9 Monocytes % 7.8 Eosinophils % 1.7 Basophils % 0.7 Nucleated RBC % % 0 Absolute Neutrophils (1.2-6.7) 10^3/uL 6.71 H Absolute Lymphocytes (1.2-3.4) 10^3/uL 1.81 Absolute Monocytes (0.1-0.8) 10^3/uL 0.75 Absolute Eosinophils (0.0-0.7) 10^3/uL 0.16 Absolute Basophils (0.0-0.2) 10^3/uL 0.07 Sodium (136-145) mmol/L 142 Potassium (3.5-5.1) mmol/L 4.3 Chloride (98-107) mmol/L 104 Carbon Dioxide (21.0-32.0) mmol/L 31.6 Anion Gap (3-11) mmol/L 6.4 BUN (7-18) mg/dL 19 H Creatinine (0.55-1.02) mg/dL 0.8 Estimated GFR/1.73 m2 (mL/min/1.73m2) >= 60.00 Glucose (74-106) mg/dL 97 Calcium (8.5-10.1) mg/dL 8.9 Magnesium (1.8-2.4) mg/dL 2.4 Total Bilirubin (0.2-1.0) mg/dL 0.9 AST (15-37) U/L 15 ALT (14-59) U/L 24 Alkaline Phosphatase (46-116) U/L 97 Troponin I (<0.06) ng/mL < 0.05 NT-Pro-B Natriuret Pep (<300) pg/mL 92 Total Protein (6.4-8.2) g/dL 7.5 Albumin (3.4-5.0) g/dL 3.4 ECG Data Attestation: I personally reviewed and interpreted this ECG (s) as follows: Prior ECG tracings: available for review Interpretation: Please see official report by Dr. Monterroso. Sinus rhythm, ventricular rate of 89, no HPI General Mode of arrival: ambulatory. Date/Time Provider Initiated Documentation: 11/09/20 11:47. Limitations to Documentation: no limitations. Information obtained by: patient and family. HPI Narrative: This is a 60-year-old female, past medical history of COPD, morbid obesity, obstructive sleep apnea, former smoker, bilateral leg edema, thrombocytopenia presenting to the ER for evaluation of worsening bilateral leg edema. Patient reports that she has had bilateral lower extremity edema for nearly a year, never diagnosed with CHF. Started on a diuretic a year ago, reports symptoms began improving but then worsened, she states that they changed her medications just 2 weeks ago, discontinuing her previous diuretic, unsure of the name, initiating chlorthalidone. Patient reports that she does not believe any medication is really helping. She states that her bilateral leg swelling has worsened over the past 48 hours. States that her legs feel very tight like they should a pop. Denies any point calf tenderness. Patient states that she has chronic shortness of breath, recently treated with steroids 1 month ago for COPD exacerbation. She does not wear oxygen at baseline but does use 2 L during the day if required, otherwise she does wear her BiPAP 2 L every night. Patient reports a chronic dry cough. States that her chronic shortness of breath is worse with lying flat or exertion. Denies headache, fever, chest pain, productive cough or abdominal pain, nausea, vomiting. Patient states that she has been trying to stay well-hydrated given the heat and humidity. She states also that she does not like wearing her compression stockings as they are rather tight and subsequently cause discomfort. Related Data Home Medications Medication Instructions Recorded Confirmed albuterol sulfate [ProAir HFA] 2 gm INHALATION PRN PRN 04/16/15 11/09/20 budesonide-formoterol [Symbicort] 2 puff INHALATION BID 04/16/15 11/09/20 Anoro Ellipta 1 puff HHN DAILY 09/25/17 11/09/20 ipratropium-albuterol 3 ml IH QID PRN #90 ml 01/30/19 03/11/20 diaper,brief,adult,disposable #120 each 05/13/19 10/21/19 cetirizine 10 mg capsule 10 mg PO DAILY 10/17/19 03/11/20 chlorthalidone 12.5 mg PO DAILY 11/09/20 11/09/20 Previous Rx's Medication Instructions Recorded ipratropium-albuterol 3 ml IH QID PRN #90 ml 01/30/19 diaper,brief,adult,disposable #120 each 05/13/19 Allergies Allergy/AdvReac Type Severity Reaction Status Date / Time No Known Allergies Allergy Verified 11/09/20 12:15 General Stated Complaint: SOB CHRIS: 3 Review of Systems Constitutional Constitutional: Denies fatigue, Denies fever(s) and Denies headache(s) ENT Ears, Nose, Mouth, and Throat: Denies headache(s) and Denies neck pain Cardiovascular Cardiovascular: Denies chest pain and Reports dyspnea (chronic copd) Respiratory Respiratory: Reports cough (Chronic dry) and Reports dyspnea (chronic copd) Gastrointestinal Gastrointestinal: Denies abdominal pain, Denies nausea and Denies vomiting Musculoskeletal Musculoskeletal: Denies back pain and Denies neck pain Integumentary/Breasts Skin/Breast: Denies rash Neurologic Neurologic: Denies headache(s) Endocrine Endocrine: Denies fatigue Hematologic/Lymphatic Hematologic/Lymphatic: Denies easy bleeding and Denies easy bruising [facility] Medical History COPD (chronic obstructive pulmonary disease) 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 Patient was referred to urology at [facility] for assessment and treatment Varicose veins of both lower extremities Surgical History Fistula, anal Repaired with 2003 H/O tubal ligation 1986 Social History Smoking/Tobacco Use Status: Former Tobacco Use Smoking risk assessment performed?: Yes Alcohol Intake: never Drug use: Never Substance use type: does not use Current gender identity: female Do you feel safe at home: Yes Do you feel safe in your relationship?: Yes History History 4 Para Hx # Term Pregnancies 2 Multiple births Hx # Pregnancies Ectopic pregnancies AB induced Hx Number of Living Children AB spontaneous Exam Const General: cooperative, healthy appearing, comfortable and no acute distress Orientation: alert and awake HENMT Head: normal to inspection, normocephalic and atraumatic Face and sinus: normal facial exam Mouth: moist mucous membranes Eyes General: appearance normal, both eyes and all related structures Conjunctivae: conjunctivae normal Neck Neck: normal visual inspection, full ROM, trachea midline and supple Resp Effort & Inspection: normal respiratory effort and able to speak in complete sentences Auscultation: diminished lung sounds bilaterally in the lower lung rose and wheezes expiratory wheezes (Scattered, mild, mostly clear with cough) Cardio Rate: regular rate Rhythm: regular rhythm GI Inspection: obesity Palpation: soft and nontender Back/Spine/Pelvis Back: No back tenderness Skin General skin exam: no rashes or lesions noted Neuro General: patient alert, patient awake, moves all extremities and no focal motor deficits Cognition: normal cognition Speech: speech normal Gait: normal gait Motor: muscle tone normal throughout Sensory Exam: no sensory deficits noted Extrem General: full ROM, capillary refill normal, no calf tenderness, normal gait and pedal edema bilaterally pitting and 2+ Other: Bilateral lower extremities with 2+ pitting edema, hyperpigmentation changes consistent with chronic venous stasis. There is no weeping or drainage. No warmth or erythema. Negative Homans' sign bilaterally. No calf discomfort to palpation. Psych Appearance: grossly normal Mental Status: mental status grossly normal Course Vital Signs Vital signs: Vital Signs Temperature 37.2 C 11/09/20 11:53 Pulse 86 11/09/20 11:53 Blood Pressure 162/82 H 11/09/20 11:53 Pulse Oximetry 92 11/09/20 11:53 Temperature 37.2 C 11/09/20 11:53 Temperature Source Temporal Artery Scan 11/09/20 11:53 Pulse 86 11/09/20 11:53 Respiratory Rate 18 11/09/20 12:07 Respiratory Effort 11/09/20 12:07 Respiratory Depth Normal 11/09/20 12:07 Respiratory Pattern Normal 11/09/20 12:07 Blood Pressure 162/82 H 11/09/20 11:53 Blood Pressure Position Sitting 11/09/20 11:53 Pulse Oximetry 92 11/09/20 11:53 Oxygen Delivery Method Room Air 11/09/20 11:53 Oxygen Flow Rate 0 11/09/20 11:53 Pain Level 6 11/09/20 11:53
[2020-11-09 13:23] LABS: Abs Immature Grans 0.08 10^3/uL (0.0-0.06); Absolute Basophil Count 0.07 10^3/uL (0.0-0.2); Absolute Eosinophil Count 0.16 10^3/uL (0.0-0.7); Absolute Lymphocyte Count 1.81 10^3/uL (1.2-3.4); Absolute Monocyte Count 0.75 10^3/uL (0.1-0.8); Absolute Neutrophil Count 6.71 10^3/uL (1.2-6.7); Basophils % 0.7; Eosinophils % 1.7; HCT 52.6 % (36.0-46.0); HGB 16.3 g/dL (11.2-15.7); Immature Grans % 0.8; Lymphocytes % 18.9; MCH 26.8 pg (27.0-33.0); MCV 86.5 fL (80-95); MPV 9.3 fL (8.0-11.0); Monocytes % 7.8; Neutrophils % 70.1; Nucleated RBC 0 %; Platelet Count 132 10^3/uL (130-400); RBC 6.08 10^6/uL (3.93-5.22); RDW 14.6 % (11.7-14.6); RDW-SD 46.3 fL; WBC 9.58 10^3/uL (4.4-10.8)
[2020-11-09 13:38] LABS: ALT 24 U/L (14-59); AST 15 U/L (15-37); Albumin 3.4 g/dL (3.4-5.0); Alkaline Phosphatase 97 U/L (46-116); Anion Gap 6.4 mmol/L (3-11); BUN 19 mg/dL (7-18); Bilirubin, Total 0.9 mg/dL (0.2-1.0); CO2 31.6 mmol/L (21.0-32.0); CREATININE 0.8 mg/dL (0.55-1.02); Calcium 8.9 mg/dL (8.5-10.1); Chloride 104 mmol/L (98-107); Glucose 97 mg/dL (74-106); Potassium 4.3 mmol/L (3.5-5.1); Sodium 142 mmol/L (136-145); Total Protein 7.5 g/dL (6.4-8.2)
[2020-11-09 13:41] LABS: Troponin I < 0.05 ng/mL (<0.06)
[2020-11-09 13:51] LABS: Magnesium 2.4 mg/dL (1.8-2.4); NT-proBNP 92 pg/mL (<300)
== END 2020-11-09 14:30 | disposition home or self-care (01) ==
PROVIDERS: Emergency Provider Physician Assistant; PCP Nurse Practitioner
DX: R60.0 Localized edema (principal); R06.02 Shortness of breath
CPT/HCPCS: 36415; 80053; 93005; 99285; 71046; 83735; 83880; 84484; 85025; 93010

== ENCOUNTER 2020-12-01 14:27 | Outpatient (CLI) | payer MEDICAID, SELFPAY ==
[2020-12-01 14:44] LABS: Abs Immature Grans 0.08 10^3/uL (0.0-0.06); Absolute Basophil Count 0.04 10^3/uL (0.0-0.2); Absolute Lymphocyte Count 1.86 10^3/uL (1.2-3.4); Absolute Monocyte Count 0.66 10^3/uL (0.1-0.8); Absolute Neutrophil Count 7.49 10^3/uL (1.2-6.7); Basophils % 0.4; HCT 51.1 % (36.0-46.0); HGB 16.2 g/dL (11.2-15.7); Immature Grans % 0.8; Lymphocytes % 18.2; MCHC 31.7 % (32.0-36.0); MCV 85.2 fL (80-95); MPV 9.1 fL (8.0-11.0); Monocytes % 6.5; Neutrophils % 73.1; Nucleated RBC 0 %; Platelet Count 118 10^3/uL (130-400); RDW 14.4 % (11.7-14.6); RDW-SD 44.5 fL; WBC 10.23 10^3/uL (4.4-10.8)
[2020-12-01 15:05] LABS: ALT 18 U/L (14-59); AST 19 U/L (15-37); Albumin 3.4 g/dL (3.4-5.0); Alkaline Phosphatase 100 U/L (46-116); Anion Gap 5.5 mmol/L (3-11); BUN 12 mg/dL (7-18); Bilirubin, Total 0.5 mg/dL (0.2-1.0); CO2 30.5 mmol/L (21.0-32.0); CREATININE 0.8 mg/dL (0.55-1.02); Calcium 8.8 mg/dL (8.5-10.1); Chloride 105 mmol/L (98-107); Glucose 97 mg/dL (74-106); Potassium 3.8 mmol/L (3.5-5.1); Sodium 141 mmol/L (136-145); Total Protein 7.4 g/dL (6.4-8.2)
== END 2020-12-01 14:28 | disposition home or self-care (01) ==
LOC: LBO 14:27
PROVIDERS: PCP Nurse Practitioner; Visit Provider Internal Medicine Hematology & Oncology
DX: D69.6 Thrombocytopenia, unspecified (principal)
CPT/HCPCS: 36415; 80053; 85025

== ENCOUNTER 2020-12-09 04:37 | Outpatient (CLI) | payer OTHER, SELFPAY ==
[2020-12-09] MEDS: Albuterol HFA 18 GM 200 PUFF INH IH (08:31)
[2020-12-09] MEDS: Inhaler, Assist Device 1 EACH MC (08:31)
--- NOTE | 2020-12-10 14:23 | W.PFT ---
Date of service: 12/09/20 Time of Service: 08:09 Pulmonary Function Test Result Requesting Provider Kiara Coyle Interpretation Spirometry: There is no airflow obstruction. Although there is technically no significant bronchodilator response, the FVC did improve by 11% and 160 cc with albuterol administration. There is a restrictive pattern present in spirometry. Impression There is no airflow obstruction. The restrictive pattern seen may be due to restrictive lung disease, inadequate effort, or obesity (pseudorestriction). Would recommend full pulmonary function testing with lung volumes to further assess the possibility of restrictive lung disease. Clinical Correlation therefore is recommended.
== END 2020-12-09 04:38 | disposition home or self-care (01) ==
LOC: RT 04:37
PROVIDERS: PCP Nurse Practitioner; Visit Provider Pediatrics Pediatric Rheumatology
DX: Z02.71 Encounter for disability determination (principal)
CPT/HCPCS: 94060; 94618

== ENCOUNTER 2021-03-01 13:01 | Outpatient (REF) | payer MEDICAID, SELFPAY ==
[2021-03-01 14:41] LABS: Abs Immature Grans 0.11 10^3/uL (0.0-0.06); Absolute Basophil Count 0.05 10^3/uL (0.0-0.2); Absolute Lymphocyte Count 1.43 10^3/uL (1.2-3.4); Absolute Monocyte Count 0.79 10^3/uL (0.1-0.8); Basophils % 0.4; Eosinophils % 0.9; HCT 49.9 % (36.0-46.0); HGB 15.3 g/dL (11.2-15.7); Lymphocytes % 12.4; MCH 26.8 pg (27.0-33.0); MCHC 30.7 % (32.0-36.0); MCV 87.4 fL (80-95); MPV 10.1 fL (8.0-11.0); Monocytes % 6.8; Neutrophils % 78.5; Nucleated RBC 0 %; Platelet Count 111 10^3/uL (130-400); RBC 5.71 10^6/uL (3.93-5.22); RDW-SD 48.4 fL; WBC 11.56 10^3/uL (4.4-10.8)
[2021-03-01 14:42] LABS: Absolute Neutrophil Count 9.07 10^3/uL (1.2-6.7)
[2021-03-02 09:25] LABS: IgE 118 IU/mL (<158)
== END 2021-03-01 13:02 | disposition home or self-care (01) ==
LOC: LBN 13:01
PROVIDERS: PCP Nurse Practitioner; Visit Provider Student in an Organized Health Care Education/Training Program
DX: J43.8 Other emphysema (principal)
CPT/HCPCS: 82785; 85025

== ENCOUNTER 2021-03-02 09:12 | Outpatient (REF) | payer MEDICAID, SELFPAY | END 2021-03-02 09:13 | disposition home or self-care (01) | LOC: LBN 09:12 | PROVIDERS: PCP Nurse Practitioner; Visit Provider Student in an Organized Health Care Education/Training Program | DX: J43.8 Other emphysema (principal) | CPT/HCPCS: 87070; 87205 ==

== ENCOUNTER 2021-06-21 15:13 | Outpatient (REF) | payer MEDICAID, SELFPAY ==
[2021-06-23 00:55] LABS: COVID-19 RT-PCR UVMMC Result Negative (Negative)
[2021-06-23 07:12] LABS: Influenza A RNA Result Negative (Negative); Influenza B RNA Result Negative (Negative); RSV RNA Result Negative (Negative)
== END 2021-06-21 15:14 | disposition home or self-care (01) ==
LOC: LBN 15:13
PROVIDERS: PCP Nurse Practitioner; Visit Provider Student in an Organized Health Care Education/Training Program
DX: J06.9 Acute upper respiratory infection, unspecified (principal); Z20.822 Contact with and (suspected) exposure to COVID-19
CPT/HCPCS: 87631; U0003

== ENCOUNTER 2021-07-26 20:30 | Outpatient (REF) | payer MEDICAID, SELFPAY ==
[2021-07-26 12:44] LABS: Abs Immature Grans 0.72 10^3/uL (0.0-0.06); HCT 47.9 % (36.0-46.0); HGB 14.8 g/dL (11.2-15.7); MCH 26.5 pg (27.0-33.0); MCHC 30.9 % (32.0-36.0); MCV 85.8 fL (80-95); MPV 9.4 fL (8.0-11.0); Nucleated RBC 0 %; Platelet Count 187 10^3/uL (130-400); RBC 5.58 10^6/uL (3.93-5.22); WBC 15.44 10^3/uL (4.4-10.8)
[2021-07-26 12:50] LABS: Anion Gap 5.5 mmol/L (3-11); BUN 16 mg/dL (7-18); CO2 32.5 mmol/L (21.0-32.0); CREATININE 0.9 mg/dL (0.55-1.02); Chloride 104 mmol/L (98-107); Glucose 101 mg/dL (74-106); Potassium 3.5 mmol/L (3.5-5.1); Sodium 142 mmol/L (136-145)
[2021-07-26 13:00] LABS: Absolute Basophil Count 0.15 10^3/uL (0.0-0.2); Absolute Eosinophil Count 0.31 10^3/uL (0.0-0.7); Absolute Lymphocyte Count 1.24 10^3/uL (1.2-3.4); Absolute Monocyte Count 0.62 10^3/uL (0.1-0.8)
[2021-07-26 13:01] LABS: Absolute Neutrophil Count 12.82 10^3/uL (1.2-6.7); Bands % 2
[2021-07-26 13:02] LABS: Diff Comment Manual Differential; Metamyelocytes % 2; RBC Morphology Normal
[2021-07-26 13:21] LABS: Procalcitonin < 0.1 ng/mL
[2021-07-26 22:08] LABS: Legionella Ag Detection Urine Negative (Negative)
[2021-07-28 14:43] LABS: Fungitell Qualitative Negative (Negative); Fungitell Quantitative Value <31 pg/mL (<60 pg/mL)
[2021-07-28 16:25] LABS: Streptococcus Pneumoniae Ag, U Negative (Negative)
[2021-07-28 18:57] LABS: Blastomyces Ag Result Not Detected; Blastomyces Ag Value Not Detected
== END 2021-07-26 20:31 | disposition home or self-care (01) ==
LOC: LBN 20:30
PROVIDERS: PCP Nurse Practitioner; Visit Provider Student in an Organized Health Care Education/Training Program
DX: J18.9 Pneumonia, unspecified organism (principal); J44.1 Chronic obstructive pulmonary disease with (acute) exacerbation; R09.2 Respiratory arrest; E66.1 Drug-induced obesity
CPT/HCPCS: 80048; 84145; 87449; 85025; 87070; 87205; 87385; 87899

== ENCOUNTER 2021-08-12 00:52 | Outpatient (CLI) | payer MEDICAID, SELFPAY ==
--- NOTE | 2021-08-12 07:30 | DI.CT_ITS ---
Exam(s) CT CHEST WO EXAM: CT CHEST WO CLINICAL HISTORY: concern for pneumonia or bronchiectasis,j18.9. TECHNIQUE: Imaging protocol: Axial computed tomography images were obtained and coronal and sagittal reformatted images were created and reviewed. COMPARISON: CT CT CHEST LUNG CANCER SCREEN from 03/10/2020 CR XR PORTABLE CHEST AP from 08/12/2021 FINDINGS: The examination is limited due to patient motion artifact. Tracheobronchial tree: Patent where visualized. No evidence of bronchiectasis. Pulmonary parenchyma: No consolidation or dominant measurable mass. No architectural distortion. Mediastinum and Denice: No dominant adenopathy or fluid collection. The esophagus is unremarkable. Thyroid gland: Unremarkable. Pleura: No effusion or pneumothorax. Heart: The heart is not dilated. Coronary artery calcifications are present. No pericardial effusion . Aorta: Thoracic aorta non-dilated. Atherosclerosis. Upper abdomen: There is suboptimal evaluation of the upper abdomen due to patient motion artifact. Lymph nodes: Within normal limits. Soft tissues: Unremarkable. Bones:Within normal limits for the patient's age. IMPRESSION: No acute pulmonary process. RADIATION DOSE DELIVERED: 1,207.59mGy.cm Total DLP 1,207.59mGy.cm Total DLP DATA REPOSITORY: All CT scans at this facility are submitted to the National Radiology Data Registry (NRDR) Dose Index Registry (DIR) with the [employer] ([employer]). RADIATION OPTIMIZATION: All CT scans at this facility use at least one of these dose optimization te chniques: automated exposure control; mA and/or kV adjustment per patient size (includes targeted exa ms where dose is matched to clinical indication); or iterative reconstruction.
== END 2021-08-12 01:12 ==
PROVIDERS: PCP Nurse Practitioner; Visit Provider Student in an Organized Health Care Education/Training Program
DX: J18.9 Pneumonia, unspecified organism (principal); R09.02 Hypoxemia
CPT/HCPCS: 71250

== ENCOUNTER 2021-08-12 09:32 | Emergency (ER) | payer MEDICAID, SELFPAY ==
[2021-08-12] VITALS (25 sets, daily range): BP systolic 110–142; BP diastolic 52–93; PULSE 81–96; RESP 16–30; TEMP 38; O2SAT 86–97
--- NOTE | 2021-08-12 09:30 | RT.EKG_ITS ---
APPROVED REPORT Exam: Resting ECG Reason for Exam: DYSPNEA Patient Location: E HR:95 bpm ECG Measurements Heart Rate [address] 153 P 72 QRSd 85 QRS -62 QT 342 T 57 QTc 429 Conclusion Sinus rhythm...normal P axis, V-rate 60- 99 Left anterior fascicular block...axis(240,-40), init forces inf Low voltage, precordial leads...precordial leads <1.0mV Consider anterior infarct...Q >30mS in V2-V5 sinus rhythm, left axis, normal intervals, non ischemic
--- NOTE | 2021-08-12 09:45 | DI.US_ITS ---
Exam(s) US LOWER EXTREMITY VENOUS LT EXAM: US LOWER EXTREMITY VENOUS LT CLINICAL HISTORY: swollen left lower ext TECHNIQUE: Left lower extremity venous ultrasound performed using grayscale, color-flow, and spectra l Doppler analysis. COMPARISON: No exams were available for comparison FINDINGS: The left common femoral, femoral and popliteal veins demonstrate normal compressibility, augmentation , and color Doppler. The posterior tibial veins are patent. The saphenofemoral junction is unremarka ble. There is no evidence of a Tao cyst. The soft tissues are unremarkable. IMPRESSION: No DVT. DATA REPOSITORY:
--- NOTE | 2021-08-12 09:45 | DI.US_ITS ---
Exam(s) US LOWER EXTREMITY VENOUS RT EXAM: US LOWER EXTREMITY VENOUS RT CLINICAL HISTORY: lower extremity swelling L greater than R TECHNIQUE: Right lower extremity venous ultrasound performed using grayscale, color-flow, and spectr al Doppler analysis. COMPARISON: No exams were available for comparison FINDINGS: The right common femoral, femoral and popliteal veins demonstrate normal compressibility, augmentatio n, and color Doppler. The posterior tibial veins are patent. The saphenofemoral junction is unremark able. There is no evidence of a Tao cyst. The soft tissues are unremarkable. IMPRESSION: No DVT. DATA REPOSITORY:
--- NOTE | 2021-08-12 10:02 | W.ED.GENAD ---
Discharge Plan Disposition Patient Disposition: HOME Condition: Improving Discharge Details Clinical Impression: COPD (chronic obstructive pulmonary disease), Edema, Fungal infection of skin Primary Care Provider: VICENTE DORSEY ED Provider: Michi Rivera Home Meds and New Rx's Prescriptions: New nystatin 100,000 unit/gram powder 1 applic topical BID 7 Days Qty: 15 0RF azithromycin 250 mg tablet See Rx Instructions .ROUTE .COMPLEX Qty: 6 0RF Rx Instructions: For 250 mg dose pack: take 500 mg today (day 1), then 250 mg for 4 days (days 2-5) Continued roflumilast 500 mcg tablet 500 mcg PO DAILY Qty: 30 8RF prednisone 5 mg tablet 5 mg PO DAILY Qty: 60 2RF levofloxacin 750 mg tablet 750 mg PO DAILY Qty: 7 0RF benzonatate 200 mg capsule 200 mg PO TID PRN (Reason: cough) Qty: 30 0RF codeine-guaifenesin 8-200 mg/5 mL liquid 5 ml PO QHS Qty: 100 0RF (DME) Oxygen Tank See Rx Instructions .ROUTE .MEDSUPPLY Qty: 1 0RF Rx Instructions: As directed, 2L supplemental oxygen with conserving device on exertion. All Day Allergy (cetirizine) 10 mg capsule 10 mg PO DAILY 0RF ipratropium-albuterol 0.5 mg-3 mg(2.5 mg base)/3 mL solution for nebulization 3 ml IH QID PRN (Reason: shortness of breath) Qty: 180 11RF albuterol sulfate [ProAir HFA] 90 mcg/actuation HFA aerosol inhaler 2 puff Inhalation Q4H PRN (Reason: shortness of breath or wheezing) Qty: 1 12RF Spiriva Respimat 2.5 mcg/actuation mist 2 puff inhalation DAILY Qty: 1 12RF budesonide-formoterol [Symbicort] 160-4.5 mcg/actuation HFA aerosol inhaler 2 puff Inhalation BID Qty: 10.2 5RF prednisone 10 mg tablet See Rx Instructions .ROUTE .COMPLEX Qty: 43 0RF Rx Instructions: Take 4 tabs for 5 days, then 3 tabs for 4 days, then 2 tabs for 3 days, then 1 tab for 3 days and then 0.5 tabs daily for 3 days. doxycycline hyclate 100 mg capsule 100 mg PO BID Qty: 14 0RF furosemide [Lasix] 20 mg tablet 20 mg PO DAILY Qty: 14 0RF Discharge Instructions Instructions: COPD (Chronic Obstructive Pulmonary Disease) (ED) Additional Instructions: Please take your medication as prescribed. Please return to the emergency department you have any worsening symptoms specifically worsening shortness of breath or cough. Please seen by your primary care physician. Be sure to keep skin clean and dry, apply prescription to affected skin. Please return to the emergency department he develop signs of infection such as high fever worsening redness pain pus drainage or other abnormal skin findings Medical Decision Making 60-year-old female history of COPD obesity bilateral lower extremity swelling left greater than right presents with cough productive of clear sputum over the past several days, noted to be tachycardic, relatively hypoxic to the low 90s and with a low-grade fever, nontoxic no respiratory stress clear lungs, does have pitting edema to left lower extremity and edema to right lower extremity, chronic venous stasis skin changes noted, irritation to groin skin likely moisture and friction related with likely mild superficial fungal infection no evidence of bulla crepitus or abscess or cellulitis to suggest Trena's; patient is on 2 L nasal cannula at baseline, currently on 1 L nasal cannula at bedside saturating 92%, speaking full sentences clear lungs. EKG left anterior fascicular block nonischemic. Consider likely viral URI versus COPD exacerbation versus component of CHF versus less likely ACS versus less PE versus unlikely aortic pathology or pneumothorax. Low suspicion for serious dermatologic infection such as cellulitis abscess or Trena's given examination of groin, likely chronic venous stasis however must consider DVT given asymmetric lower extremity edema. Will pursue labs chest x-ray bilateral DVT study EKG, trial of nebs and steroids given high clinical suspicion for COPD exacerbation disposition pending reassessment of symptomatology. 12: 61 patient resting comfortably feeling much better after nebs and steroids. No evidence of DVT. X-ray read as negative however patient is likely having a COPD exacerbation will benefit from azithromycin. Patient feels comfortable going home. Endorse that she saturates between 87 and 93% on 2 L nasal cannula is currently 90% on 2 L. Speaking full sentences good color. Patient also be given a prescription for topical antifungal for her groin given strict return precautions for signs of infection. HPI General Date/Time Provider Initiated Documentation: 08/12/21 09:34. HPI Narrative: 60-year-old female history of COPD obesity presents with cough productive of clear sputum over the past week, bilateral lower extremity swelling left more than right, endorses that she was scheduled for an ultrasound yesterday as an outpatient loader technician pressing her groin and ruptured a official abscess and the study was aborted. Denies history of blood clots. Denies any chest pain. Denies any sick contact. Endorses being vaccinated against COVID-19 Related Data Home Medications Medication Instructions Recorded Confirmed cetirizine 10 mg capsule (All Day 10 mg PO DAILY 10/17/19 08/12/21 Allergy (cetirizine)) Oxygen #1 ea 12/02/20 07/26/21 ipratropium 0.5 mg-albuterol 3 mg 3 ml IH QID PRN #180 ml 02/17/21 08/12/21 (2.5 mg base)/3 mL nebulization soln prednisone 5 mg tablet 5 mg PO DAILY #60 tab 04/11/21 08/12/21 roflumilast 500 mcg tablet 500 mcg PO DAILY #30 tab 04/11/21 08/12/21 albuterol sulfate 90 mcg/actuation 2 puff INHALATION Q4H PRN #1 inh 04/19/21 08/12/21 aerosol inhaler (ProAir HFA) tiotropium bromide 2.5 2 puff INHALATION DAILY #1 inh 04/19/21 08/12/21 mcg/actuation mist for inhalation (Spiriva Respimat) budesonide-formoterol HFA 160 2 puff INHALATION BID #10.2 g 05/19/21 08/12/21 mcg-4.5 mcg/actuation aerosol inhaler (Symbicort) benzonatate 200 mg capsule 200 mg PO TID PRN #30 cap 06/21/21 07/26/21 levofloxacin 750 mg tablet 750 mg PO DAILY #7 tab 06/21/21 08/12/21 doxycycline hyclate 100 mg capsule 100 mg PO BID #14 cap 07/21/21 08/12/21 prednisone 10 mg tablet See Rx Instructions .ROUTE 07/21/21 07/26/21 .COMPLEX #43 tab codeine 8 mg-guaifenesin 200 mg/5 5 ml PO QHS #100 ml 07/26/21 08/12/21 mL oral liquid furosemide 20 mg tablet (Lasix) 20 mg PO DAILY #14 tab 08/05/21 08/12/21 azithromycin 250 mg tablet See Rx Instructions .ROUTE 08/12/21 .COMPLEX #6 tab nystatin 100,000 unit/gram topical 1 applic TOPICAL BID 7 Days #15 g 08/12/21 powder Previous Rx's Medication Instructions Recorded ipratropium 0.5 mg-albuterol 3 mg 3 ml IH QID PRN #180 ml 02/17/21 (2.5 mg base)/3 mL nebulization soln prednisone 5 mg tablet 5 mg PO DAILY #60 tab 04/11/21 roflumilast 500 mcg tablet 500 mcg PO DAILY #30 tab 04/11/21 albuterol sulfate 90 mcg/actuation 2 puff INHALATION Q4H PRN #1 inh 04/19/21 aerosol inhaler (ProAir HFA) tiotropium bromide 2.5 2 puff INHALATION DAILY #1 inh 04/19/21 mcg/actuation mist for inhalation (Spiriva Respimat) budesonide-formoterol HFA 160 2 puff INHALATION BID #10.2 g 05/19/21 mcg-4.5 mcg/actuation aerosol inhaler (Symbicort) benzonatate 200 mg capsule 200 mg PO TID PRN #30 cap 06/21/21 levofloxacin 750 mg tablet 750 mg PO DAILY #7 tab 06/21/21 doxycycline hyclate 100 mg capsule 100 mg PO BID #14 cap 07/21/21 prednisone 10 mg tablet See Rx Instructions .ROUTE 07/21/21 .COMPLEX #43 tab codeine 8 mg-guaifenesin 200 mg/5 5 ml PO QHS #100 ml 07/26/21 mL oral liquid furosemide 20 mg tablet (Lasix) 20 mg PO DAILY #14 tab 08/05/21 azithromycin 250 mg tablet See Rx Instructions .ROUTE 08/12/21 .COMPLEX #6 tab nystatin 100,000 unit/gram topical 1 applic TOPICAL BID 7 Days #15 g 08/12/21 powder Allergies Allergy/AdvReac Type Severity Reaction Status Date / Time No Known Allergies Allergy Verified 08/12/21 09:45 General Stated Complaint: RespSymp CHRIS: 3 Review of Systems Narrative: Review of Systems Constitutional: negative Eyes: negative ENT: negative Cardiovascular: Bilateral leg swelling Respiratory: Cough Gastrointestinal: negative : negative Musculoskeletal: negative Skin: negative Neurologic: negative Psych: negative PFSH All Active Problems (Updated 08/12/21 @ 13:06 by Michi Rivera MD) Fungal infection of skin (Acute) Edema (Acute) Hypoxia (Acute) Pneumonia (Acute) URI (upper respiratory infection) (Acute) Onychomycosis (Acute) Ex-cigarette smoker (Acute) Peripheral edema (Acute) TEENA (obstructive sleep apnea) (Chronic) Morbid obesity (Acute) COPD (chronic obstructive pulmonary disease) (Acute) 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 Patient was referred to urology at [facility] for assessment and treatment Varicose veins of both lower extremities Surgical History Fistula, anal Repaired with 2003 H/O tubal ligation 1987 Family History (Updated 12/02/20 @ 10:00 by Janiya Vasquez) Father , age 59 Cancer brain cancer. Mother , age 63 Cancer Lung cancer. COPD (chronic obstructive pulmonary disease) Sister Hypertension Brother Hypertension Heart disease Heart failure, heart disease. Social History (Updated 12/02/20 @ 10:09 by Janiya Vasquez) Smoking/Tobacco Use Status: Former Tobacco Use Quit Date: 04/13/20 Pack-years: 40 Smoking risk assessment performed?: Yes Alcohol Intake: never Drug use: Never Substance use type: does not use Pets and animals: Yes (5 cats, 1 dog) Pets and animals: cat(s) and dog(s) Current gender identity: female Do you feel safe at home: Yes Do you feel safe in your relationship?: Yes History History 4 Para Hx # Term Pregnancies 2 Multiple births Hx # Pregnancies Ectopic pregnancies AB induced Hx Number of Living Children AB spontaneous Exam Narrative Exam Narrative: Physical Examination General: alert, awake, cooperative, resting comfortably, no acute distress HEENT: normocephalic, atraumatic; PERRL, EOM intact, conjunctiva normal; no nasal discharge; moist mucous membranes, oral and pharyngeal mucosa normal, tolerating secretions Neck: supple, trachea midline; full ROM Chest: normal to inspection Respiratory: normal respiratory effort, speaking in full sentences, clear to auscultation, no wheezing, rales or rhonchi Cardiac: Borderline tachycardic, regular rhythm, S1S2 intact, no murmurs rubs or gallops GI: abdomen soft, non-tender, non-distended; no palpable mass or hepatosplenomegaly Skin: Evidence of chronic irritation to skin of groin likely moisture related and component of mild superficial fungal infection, no discrete abscess or cellulitis appreciated no crepitus or bulla Neuro: AAOx3, normal speech, moving all extremities Extremities: Bilateral lower extremity edema left greater than right with some component of pitting edema in the left, chronic venous stasis changes bilateral lower extremity Psych: Appropriate mood and affect Course Vital Signs Vital signs: Vital Signs Pulse 81 08/12/21 09:40 Respiratory Rate 19 08/12/21 09:40 Blood Pressure 110/52 L 08/12/21 09:40 Pulse Oximetry 91 L 08/12/21 09:40 Temperature 38.0 C H 08/12/21 09:41 Temperature Source Temporal Artery Scan 08/12/21 09:41 Pulse 91 H 08/12/21 09:46 Pulse 94 H 08/12/21 09:50 Respiratory Rate 19 08/12/21 09:50 Respiratory Effort 08/12/21 09:51 Respiratory Depth Shallow 08/12/21 09:51 Blood Pressure 124/68 08/12/21 09:46 Blood Pressure Mean 79 08/12/21 09:46 Blood Pressure Position Sitting 08/12/21 09:41 Pulse Oximetry 92 08/12/21 09:54 Oxygen Delivery Method Hi Flow Nasal Cannula 08/12/21 09:54 Oxygen Flow Rate 1 08/12/21 09:54
[2021-08-12 10:14] LABS: Abs Immature Grans 0.16 10^3/uL (0.0-0.06); Absolute Basophil Count 0.05 10^3/uL (0.0-0.2); Absolute Eosinophil Count 0.06 10^3/uL (0.0-0.7); Absolute Monocyte Count 0.69 10^3/uL (0.1-0.8); Basophils % 0.4; Eosinophils % 0.5; HCT 51.5 % (36.0-46.0); HGB 15.6 g/dL (11.2-15.7); Immature Grans % 1.4; Lymphocytes % 7.9; MCH 26.4 pg (27.0-33.0); MCHC 30.3 % (32.0-36.0); MCV 87.3 fL (80-95); Neutrophils % 83.8; Nucleated RBC 0 %; Platelet Count 121 10^3/uL (130-400); RDW 15.7 % (11.7-14.6); RDW-SD 49.7 fL; WBC 11.58 10^3/uL (4.4-10.8)
[2021-08-12 10:15] LABS: Source Nasal/Nares
--- NOTE | 2021-08-12 10:16 | DI.RAD_ITS ---
Exam(s) XR PORTABLE CHEST AP EXAM: XR PORTABLE CHEST AP CLINICAL HISTORY: cough, fever, copd TECHNIQUE: 2D digital imaging was performed of the chest. One image was obtained. An AP view was ob tained. COMPARISON: CR XR PORTABLE CHEST AP from 03/11/2020 FINDINGS: MEDIASTINUM: Normal. HEART: Normal. PULMONARY VASCULATURE: Normal. LUNGS: Clear. PLEURAL SPACE: No pleural effusion or pneumothorax. BONE:Within normal limits for the patient's age. OTHER FINDINGS:Normal. IMPRESSION: No acute pulmonary findings. DATA REPOSITORY: RADIATION DOSE DELIVERED:
[2021-08-12] MEDS: Dexamethasone 10 MG/ML VIAL IVP (10:17)
[2021-08-12] MEDS: Acetaminophen 325 MG TAB 650 MG PO (10:17)
[2021-08-12] MEDS: Albuterol/Ipratropium 3 ML UPD VIAL UPD (10:17)
[2021-08-12 10:20] LABS: Absolute Lymphocyte Count 0.91 10^3/uL (1.2-3.4)
[2021-08-12 10:26] LABS: ALT 28 U/L (14-59); AST 17 U/L (15-37); Albumin 3.4 g/dL (3.4-5.0); Alkaline Phosphatase 103 U/L (46-116); Anion Gap 6.8 mmol/L (3-11); BUN 17 mg/dL (7-18); Bilirubin, Total 0.5 mg/dL (0.2-1.0); CO2 32.2 mmol/L (21.0-32.0); CREATININE 0.9 mg/dL (0.55-1.02); Calcium 8.9 mg/dL (8.5-10.1); Chloride 103 mmol/L (98-107); Glucose 114 mg/dL (74-106); Sodium 142 mmol/L (136-145); Total Protein 7.4 g/dL (6.4-8.2)
[2021-08-12 10:29] LABS: INR 1.1 (0.9-1.1); PTT Activated 23.8 sec (21.0-27.5); Prothrombin Time 10.7 sec (9.3-11.0)
[2021-08-12 10:35] LABS: NT-proBNP 107 pg/mL (<300); Troponin I < 50 ng/L (<or=60)
[2021-08-12 14:07] LABS: COVID-19 PCR Negative (Negative)
== END 2021-08-12 13:24 | disposition home or self-care (01) ==
PROVIDERS: Emergency Provider Emergency Medicine; PCP Nurse Practitioner Family
DX: J44.1 Chronic obstructive pulmonary disease with (acute) exacerbation (principal); R60.0 Localized edema; B36.9 Superficial mycosis, unspecified; R00.0 Tachycardia, unspecified; I44.4 Left anterior fascicular block; R09.02 Hypoxemia; Z20.822 Contact with and (suspected) exposure to COVID-19; Z99.81 Dependence on supplemental oxygen; Z87.891 Personal history of nicotine dependence; E66.01 Morbid (severe) obesity due to excess calories
CPT/HCPCS: 36415; 80053; 87635; 93005; 94640; 99284; 71045; 83880; 84484; 85025; 85610; 85730; 93010; 93971; J1100; J7620

== ENCOUNTER 2021-09-05 18:30 | Outpatient (REF) | payer MEDICAID, SELFPAY ==
[2021-09-05 18:57] LABS: Abs Immature Grans 0.13 10^3/uL (0.0-0.06); Absolute Basophil Count 0.09 10^3/uL (0.0-0.2); Absolute Eosinophil Count 0.09 10^3/uL (0.0-0.7); Absolute Monocyte Count 0.73 10^3/uL (0.1-0.8); Absolute Neutrophil Count 6.77 10^3/uL (1.2-6.7); HCT 53.3 % (36.0-46.0); HGB 16.1 g/dL (11.2-15.7); Immature Grans % 1.4; MCH 26.3 pg (27.0-33.0); MCHC 30.2 % (32.0-36.0); MCV 87.1 fL (80-95); Monocytes % 7.8; Neutrophils % 71.8; Platelet Count 129 10^3/uL (130-400); RBC 6.12 10^6/uL (3.93-5.22); RDW 15.4 % (11.7-14.6); RDW-SD 48.4 fL; WBC 9.41 10^3/uL (4.4-10.8)
[2021-09-05 19:54] LABS: ALT 22 U/L (14-59); AST 17 U/L (15-37); Albumin 3.4 g/dL (3.4-5.0); Alkaline Phosphatase 103 U/L (46-116); Anion Gap 6.5 mmol/L (3-11); BUN 16 mg/dL (7-18); Bilirubin, Total 0.6 mg/dL (0.2-1.0); CO2 32.5 mmol/L (21.0-32.0); Calcium 8.9 mg/dL (8.5-10.1); Chloride 101 mmol/L (98-107); Estimated GFR 56.95 (mL/min/1.73m2); Glucose 81 mg/dL (74-106); Potassium 4.3 mmol/L (3.5-5.1); Sodium 140 mmol/L (136-145); Total Protein 6.9 g/dL (6.4-8.2)
== END 2021-09-05 18:31 | disposition home or self-care (01) ==
LOC: NCHCN 18:30
PROVIDERS: PCP Nurse Practitioner Family; Visit Provider Nurse Practitioner Family
DX: R22.42 Localized swelling, mass and lump, left lower limb (principal)
CPT/HCPCS: 80053; 85025

== ENCOUNTER 2021-09-06 13:05 | Emergency (ER) | payer MEDICAID, SELFPAY ==
[2021-09-06] VITALS (19 sets, daily range): BP systolic 112–140; BP diastolic 65–84; PULSE 82–98; RESP 17–51; TEMP 36.8; O2SAT 93–97
--- NOTE | 2021-09-06 13:30 | DI.US_ITS ---
Exam(s) US LOWER EXTREMITY VENOUS LT EXAM: US LOWER EXTREMITY VENOUS LT CLINICAL HISTORY: pain, swelling doubled in 1 week TECHNIQUE: Left lower extremity venous ultrasound performed using grayscale, color-flow, and spectra l Doppler analysis. COMPARISON: US US LOWER EXTREMITY VENOUS LT from 08/12/2021 FINDINGS: The left common femoral, femoral and popliteal veins demonstrate normal compressibility, augmentation , and color Doppler. The posterior tibial veins are patent. The saphenofemoral junction is unremarka ble. There is a 4.4 x 1.1 x 2.7 cm Tao's cyst. The soft tissues are unremarkable. IMPRESSION: 1. No DVT. 2. Results of this exam have been verbally communicated with provider. DATA REPOSITORY:
--- NOTE | 2021-09-06 13:30 | RT.EKG_ITS ---
APPROVED REPORT Exam: Resting ECG Reason for Exam: bilat leg edema Patient Location: E HR:87 bpm ECG Measurements Heart Rate 87 AXIS MO 157 P 63 QRSd 86 QRS -57 QT 362 T 46 QTc 436 Conclusion Sinus rhythm Left anterior fascicular block. Low voltage, extremity and precordial leads No ischemic changes
--- NOTE | 2021-09-06 13:46 | W.ED.GENAD ---
Discharge Plan Disposition Patient Disposition: HOME Condition: Stable Discharge Details Clinical Impression: Peripheral edema Primary Care Provider: VICENTE DORSEY ED Provider: Dc Dueñas Home Meds and New Rx's Prescriptions: New furosemide [Lasix] 40 mg tablet 40 mg PO DAILY 4 Days Qty: 4 0RF Continued roflumilast 500 mcg tablet 500 mcg PO DAILY Qty: 30 8RF prednisone 5 mg tablet 5 mg PO DAILY Qty: 60 2RF Trelegy Ellipta 200-62.5-25 mcg blister with device 1 inh inhalation DAILY Qty: 60 12RF (DME) Oxygen Tank See Rx Instructions .ROUTE .MEDSUPPLY Qty: 1 0RF Rx Instructions: As directed, 2L supplemental oxygen with conserving device on exertion. All Day Allergy (cetirizine) 10 mg capsule 10 mg PO DAILY 0RF ipratropium-albuterol 0.5 mg-3 mg(2.5 mg base)/3 mL solution for nebulization 3 ml IH QID PRN (Reason: shortness of breath) Qty: 180 11RF albuterol sulfate [ProAir HFA] 90 mcg/actuation HFA aerosol inhaler 2 puff Inhalation Q4H PRN (Reason: shortness of breath or wheezing) Qty: 1 12RF prednisone 10 mg tablet See Rx Instructions .ROUTE .COMPLEX Qty: 43 0RF Rx Instructions: Take 4 tabs for 5 days, then 3 tabs for 4 days, then 2 tabs for 3 days, then 1 tab for 3 days and then 0.5 tabs daily for 3 days. furosemide [Lasix] 20 mg tablet 20 mg PO DAILY Qty: 14 0RF cephalexin 500 mg capsule 500 mg PO QID 0RF Discharge Instructions Instructions: Edema (ED) Additional Instructions: Work-up in the ER does not reveal any obvious emergent process. I believe this is all secondary to fluid retention. Please continue taking the Keflex as given to you by your primary care provider yesterday. A single dose of Lasix was given here in the ER and I will provide you with an additional 4 days worth of the prescription. Monitor your fluid intake and elevate your legs. Because your stockings will not sit over your leg, we wrapped her leg with an Juan wrap. Please watch for new or worsening symptoms and return to the ER for any concerns. Please follow-up with your primary care provider as already scheduled tomorrow. Discharge Data Discharge Date/Time-TO BE ENTERED AT DEPARTURE: 09/06/21 15:51 Medical Decision Making 60-year-old female, past medical history of morbid obesity, bilateral pedal edema, depression, COPD, reports that she stopped taking any of her diuretics because she felt like they were not working, presents for acute on chronic bilateral lower extremity edema left worse than right, now with a blister. She was seen by her primary care provider yesterday and initiated on Keflex and scheduled to be seen again tomorrow. Clinically this appears to be an acute on chronic issue but given the severity and the worsening nature, plan is to obtain a medical work-up to rule out cellulitis, CHF, renal disease, DVT, etc. Laboratory values are grossly unremarkable. No evidence of leukocytosis. Her platelet count is normal at 136. Sodium 138 potassium 4.0 creatinine 1.0 with a GFR of 56.95. Troponin is less than 50, BNP 36. Laboratory values and ultrasound are unremarkable for emergent process. I do believe this is secondary to severe fluid retention-edema. Plan is to give a single dose of IV Lasix now and provide a prescription for the next 5 days. Patient is scheduled to be seen by her primary care provider tomorrow, reports that she is going to call and see if she can reschedule her Sunday to give the Lasix a couple days to work before she is followed up. We discussed the importance of elevation, watching her fluid intake, and we have wrapped her left lower extremity with an Juan wrap as her typical stockings do not fit. Standard discharge and return precautions were provided. Patient understands, is agreeable to this plan, and has no additional questions or concerns. This documentation was generated using ComEdation system, please disregard any oddities of phrase or misspellings. Medical Records Medical records reviewed: Yes I reviewed the patient's medical records. Imaging Data Radiologic Study: Attestation: I personally reviewed and interpreted this imaging study as follows: Imaging: Ultrasound Radiologist's impression: Exam(s) US LOWER EXTREMITY VENOUS LT EXAM: US LOWER EXTREMITY VENOUS LT CLINICAL HISTORY: pain, swelling doubled in 1 week TECHNIQUE: Left lower extremity venous ultrasound performed using grayscale, color-flow, and spectral Doppler analysis. COMPARISON: US US LOWER EXTREMITY VENOUS LT from 08/12/2021 FINDINGS: The left common femoral, femoral and popliteal veins demonstrate normal compressibility, augmentation, and color Doppler. The posterior tibial veins are patent. The saphenofemoral junction is unremarkable. There is a 4.4 x 1.1 x 2.7 cm Tao's cyst. The soft tissues are unremarkable. IMPRESSION: 1. No DVT. 2. Results of this exam have been verbally communicated with provider. Lab Data Lab results reviewed: Yes I reviewed the patient's lab results. Labs: Laboratory Tests Range/Units 09/06/21 09/06/21 09/06/21 13:59 13:59 13:59 WBC (4.4-10.8) 10^3/uL 8.35 RBC (3.93-5.22) 10^6/uL 6.18 H Hgb (11.2-15.7) g/dL 16.4 H Hct (36.0-46.0) % 53.2 H MCV (80-95) fL 86.1 MCH (27.0-33.0) pg 26.5 L MCHC (32.0-36.0) % 30.8 L RDW (11.7-14.6) % 15.9 H Plt Count (130-400) 10^3/uL 136 MPV (8.0-11.0) fL 8.8 Immature Gran % 1.2 Neutrophils % 71.6 Lymphocytes % 17.1 Monocytes % 7.9 Eosinophils % 1.4 Basophils % 0.8 Nucleated RBC % (0.0-0.3) % 0.0 Absolute Neutrophils (1.2-6.7) 10^3/uL 5.97 Absolute Lymphocytes (1.2-3.4) 10^3/uL 1.43 Absolute Monocytes (0.1-0.8) 10^3/uL 0.66 Absolute Eosinophils (0.0-0.7) 10^3/uL 0.12 Absolute Basophils (0.0-0.2) 10^3/uL 0.07 PT (9.3-11.0) sec 11.0 INR (0.9-1.1) 1.1 APTT (21.0-27.5) sec 24.5 Sodium (136-145) mmol/L 138 Potassium (3.5-5.1) mmol/L 4.0 Chloride (98-107) mmol/L 102 Carbon Dioxide (21.0-32.0) mmol/L 32.4 H Anion Gap (3-11) mmol/L 3.6 BUN (7-18) mg/dL 11 Creatinine (0.55-1.02) mg/dL 1.0 Estimated GFR/1.73 m2 (mL/min/1.73m2) 56.95 Glucose (74-106) mg/dL 123 H Calcium (8.5-10.1) mg/dL 8.7 Magnesium (1.8-2.4) mg/dL 2.2 Total Bilirubin (0.2-1.0) mg/dL 0.5 AST (15-37) U/L 18 ALT (14-59) U/L 24 Alkaline Phosphatase (46-116) U/L 106 Troponin I (<or=60) ng/L < 50 NT-Pro-B Natriuret Pep (<300) pg/mL 36 Total Protein (6.4-8.2) g/dL 7.3 Albumin (3.4-5.0) g/dL 3.2 L ECG Data Attestation: I personally reviewed and interpreted this ECG (s) as follows: Interpretation: Please see official report by Dr. Velázquez. Sinus rhythm, ventricular rate of 87. Left anterior fascicular block. No ischemic changes HPI General Mode of arrival: ambulatory. Date/Time Provider Initiated Documentation: 09/06/21 13:06. Limitations to Documentation: no limitations. Information obtained by: patient. History of Present Illness 60 year old F presents to the emergency department with the chief complaint of L Leg pain and swelling, described as severe, with intensity rated at 8. Quality is described as aching, and is localized to the left and lower extremity. Patient reports no radiation. Patient started experiencing this month(s) (1) and it has been constant (worsening). improves with No relieving factors improve symptom(s), Movement worsens symptoms . Patient notes denies chest pain and fever/chills. Patient did receive the following treatments prior to arrival, other (Keflex) Related Data Home Medications Medication Instructions Recorded Confirmed cetirizine 10 mg capsule (All Day 10 mg PO DAILY 10/17/19 09/06/21 Allergy (cetirizine)) Oxygen #1 ea 12/02/20 08/30/21 ipratropium 0.5 mg-albuterol 3 mg 3 ml IH QID PRN #180 ml 02/17/21 09/06/21 (2.5 mg base)/3 mL nebulization soln prednisone 5 mg tablet 5 mg PO DAILY #60 tab 04/11/21 09/06/21 roflumilast 500 mcg tablet 500 mcg PO DAILY #30 tab 04/11/21 09/06/21 albuterol sulfate 90 mcg/actuation 2 puff INHALATION Q4H PRN #1 inh 04/19/21 09/06/21 aerosol inhaler (ProAir HFA) prednisone 10 mg tablet See Rx Instructions .ROUTE 07/21/21 09/06/21 .COMPLEX #43 tab furosemide 20 mg tablet (Lasix) 20 mg PO DAILY #14 tab 08/05/21 09/06/21 fluticasone fur. 200 mcg-umeclid 1 inh INHALATION DAILY #60 ea 08/30/21 09/06/21 62.5 mcg-vilant 25 mcg inhalat.powder (Trelegy Ellipta) cephalexin 500 mg capsule 500 mg PO QID 09/06/21 09/06/21 furosemide 40 mg tablet (Lasix) 40 mg PO DAILY 4 Days #4 tab 09/06/21 Previous Rx's Medication Instructions Recorded ipratropium 0.5 mg-albuterol 3 mg 3 ml IH QID PRN #180 ml 02/17/21 (2.5 mg base)/3 mL nebulization soln prednisone 5 mg tablet 5 mg PO DAILY #60 tab 04/11/21 roflumilast 500 mcg tablet 500 mcg PO DAILY #30 tab 04/11/21 albuterol sulfate 90 mcg/actuation 2 puff INHALATION Q4H PRN #1 inh 04/19/21 aerosol inhaler (ProAir HFA) prednisone 10 mg tablet See Rx Instructions .ROUTE 07/21/21 .COMPLEX #43 tab furosemide 20 mg tablet (Lasix) 20 mg PO DAILY #14 tab 08/05/21 fluticasone fur. 200 mcg-umeclid 1 inh INHALATION DAILY #60 ea 08/30/21 62.5 mcg-vilant 25 mcg inhalat.powder (Trelegy Ellipta) furosemide 40 mg tablet (Lasix) 40 mg PO DAILY 4 Days #4 tab 09/06/21 Allergies Allergy/AdvReac Type Severity Reaction Status Date / Time seasonal Allergy Uncoded 09/06/21 13:23 General Stated Complaint: Cellulitis CHRIS: 3 Review of Systems Constitutional Constitutional: Denies fever(s) and Denies weakness Cardiovascular Cardiovascular: Denies chest pain and Reports dyspnea (chronic, at baseline) Respiratory Respiratory: Reports dyspnea (chronic, at baseline) Gastrointestinal Gastrointestinal: Denies abdominal pain, Denies nausea and Denies vomiting Musculoskeletal Musculoskeletal: Denies numbness and Denies tingling Integumentary/Breasts Skin/Breast: Reports erythema Neurologic Neurologic: Denies numbness, Denies tingling and Denies weakness [facility] All Active Problems (Updated 09/06/21 @ 15:20 by REBEKAH Ruff) On prednisone therapy (Acute) Fungal infection of skin (Acute) Edema (Acute) Hypoxia (Acute) Pneumonia (Acute) URI (upper respiratory infection) (Acute) Onychomycosis (Acute) Ex-cigarette smoker (Acute) Peripheral edema (Acute) TEENA (obstructive sleep apnea) (Chronic) Morbid obesity (Acute) COPD (chronic obstructive pulmonary disease) (Acute) Followed by liquid sugar fortifier Medical History Depression History of shingles Thrombocythemia Tobacco use 01/2019 patient reports 2 cigarettes/day Urinary incontinence Stress incontinence. Patient was referred to urology at [facility] for assessment and treatment Varicose veins of both lower extremities Surgical History Fistula, anal Repaired with 2003 H/O tubal ligation 1987 Family History Father , age 59 Cancer brain cancer. Mother , age 63 Cancer Lung cancer. COPD (chronic obstructive pulmonary disease) Sister Hypertension Brother Hypertension Heart disease Heart failure, heart disease. Social History Smoking/Tobacco Use Status: Former Tobacco Use Quit Date: 04/13/20 Pack-years: 40 Smoking risk assessment performed?: Yes Alcohol Intake: never Drug use: Never Substance use type: does not use Pets and animals: Yes (5 cats, 1 dog) Pets and animals: cat(s) and dog(s) Current gender identity: female Do you feel safe at home: Yes Do you feel safe in your relationship?: Yes History History 4 Para Hx # Term Pregnancies 2 Multiple births Hx # Pregnancies Ectopic pregnancies AB induced Hx Number of Living Children AB spontaneous Exam Const General: cooperative, comfortable and no acute distress Nutritional Appearance: obese Orientation: alert, awake and oriented x3 HENMT Head: normal to inspection, normocephalic and atraumatic Face and sinus: normal facial exam Mouth: moist mucous membranes Eyes General: appearance normal, both eyes and all related structures Conjunctivae: conjunctivae normal Neck Neck: normal visual inspection, full ROM, trachea midline, supple and nontender Resp Effort & Inspection: normal respiratory effort and able to speak in complete sentences Auscultation: diminished lung sounds bilaterally in the lower lung rose and wheezes (Occasionally throughout) Cardio Rate: regular rate Rhythm: regular rhythm GI Inspection: obesity Palpation: soft and nontender Back/Spine/Pelvis Back: No back tenderness Skin Rashes: no rashes Neuro General: patient alert, patient awake, patient oriented x3, moves all extremities and no focal motor deficits Cognition: normal cognition Speech: speech normal Sensory Exam: no sensory deficits noted Extrem General: full ROM and capillary refill normal Other: Bilateral leg edema, right leg 2+, left leg 3+, both pitting. There is hyperpigmentation and erythema bilaterally but the left is again worse. Normal pedal pulses and capillary refill. There is a single intact blister to the left anterior lower leg. There is no lymphangitic streaking. Minimal diffuse warmth and tenderness. Psych Appearance: grossly normal Mental Status: mental status grossly normal Course Vital Signs Vital signs: Vital Signs Temperature 36.8 C 09/06/21 13:18 Pulse 91 H 09/06/21 13:18 Respiratory Rate 21 09/06/21 13:18 Blood Pressure 140/72 09/06/21 13:18 Pulse Oximetry 96 09/06/21 13:18 Temperature 36.8 C 09/06/21 13:18 Temperature Source Temporal Artery Scan 09/06/21 13:18 Pulse 91 H 09/06/21 13:18 Respiratory Rate 21 09/06/21 13:18 Respiratory Effort 09/06/21 13:18 Blood Pressure 140/72 09/06/21 13:18 Blood Pressure Position Supine 09/06/21 13:18 Pulse Oximetry 96 09/06/21 13:18 Oxygen Delivery Method Nasal Cannula 09/06/21 13:18 Oxygen Flow Rate 2 09/06/21 13:18 Pain Level 6 09/06/21 13:18
[2021-09-06 14:11] LABS: Absolute Basophil Count 0.07 10^3/uL (0.0-0.2); Absolute Eosinophil Count 0.12 10^3/uL (0.0-0.7); Absolute Lymphocyte Count 1.43 10^3/uL (1.2-3.4); Absolute Monocyte Count 0.66 10^3/uL (0.1-0.8); Absolute Neutrophil Count 5.97 10^3/uL (1.2-6.7); Basophils % 0.8; Eosinophils % 1.4; HCT 53.2 % (36.0-46.0); HGB 16.4 g/dL (11.2-15.7); Immature Grans % 1.2; Lymphocytes % 17.1; MCH 26.5 pg (27.0-33.0); MCHC 30.8 % (32.0-36.0); MCV 86.1 fL (80-95); MPV 8.8 fL (8.0-11.0); Monocytes % 7.9; Neutrophils % 71.6; Platelet Count 136 10^3/uL (130-400); RBC 6.18 10^6/uL (3.93-5.22); RDW 15.9 % (11.7-14.6); RDW-SD 48.2 fL; WBC 8.35 10^3/uL (4.4-10.8)
[2021-09-06 14:28] LABS: ALT 24 U/L (14-59); AST 18 U/L (15-37); Albumin 3.2 g/dL (3.4-5.0); Alkaline Phosphatase 106 U/L (46-116); Anion Gap 3.6 mmol/L (3-11); BUN 11 mg/dL (7-18); Bilirubin, Total 0.5 mg/dL (0.2-1.0); CO2 32.4 mmol/L (21.0-32.0); Calcium 8.7 mg/dL (8.5-10.1); Chloride 102 mmol/L (98-107); Estimated GFR 56.95 (mL/min/1.73m2); Glucose 123 mg/dL (74-106); Magnesium 2.2 mg/dL (1.8-2.4); NT-proBNP 36 pg/mL (<300); Sodium 138 mmol/L (136-145); Total Protein 7.3 g/dL (6.4-8.2); Troponin I < 50 ng/L (<or=60)
[2021-09-06 14:35] LABS: INR 1.1 (0.9-1.1); PTT Activated 24.5 sec (21.0-27.5)
[2021-09-06] MEDS: Furosemide 100 MG/10 ML VIAL 80 MG IVP (15:17)
== END 2021-09-06 15:51 | disposition home or self-care (01) ==
PROVIDERS: Emergency Provider Physician Assistant; PCP Nurse Practitioner Family
DX: R60.0 Localized edema (principal); M79.662 Pain in left lower leg
CPT/HCPCS: 36415; 80053; 93005; 96374; 99284; 83735; 83880; 84484; 85025; 85610; 85730; 93010; 93971; J1940

== ENCOUNTER 2022-01-31 17:01 | Outpatient (REF) | payer MEDICAID, SELFPAY ==
[2022-01-31 15:36] LABS: Calculated LDL 117 mg/dL (<100); Cholesterol 177 mg/dL (<200); HDL Cholesterol 39 mg/dL (40-60); Triglyceride 109 mg/dL (<150)
== END 2022-01-31 17:02 | disposition home or self-care (01) ==
LOC: NCHCN 17:01
PROVIDERS: PCP Nurse Practitioner Family; Visit Provider Nurse Practitioner Family
DX: Z13.220 Encounter for screening for lipoid disorders (principal)
CPT/HCPCS: 80061

== ENCOUNTER 2022-08-14 02:06 | Outpatient (CLI) | payer MEDICAID, SELFPAY ==
--- NOTE | 2022-08-14 07:00 | DI.CT_ITS ---
Exam(s) CT CHEST WO EXAM: CT CHEST WO CLINICAL HISTORY: recurring exacerbation COPD, FORMER SMOKER, Z87.891,J44.1. TECHNIQUE: Multi planar reconstructions were performed. CONTRAST MATERIAL: None COMPARISON: CT CT CHEST WO from 08/12/2021 FINDINGS: CHEST: LUNGS: There is a peripherally located small nodule in the right upper lobe measuring 4 millimeters, not evident on the prior August 2021 study.. There are no other significant focal pulmonary findings in the right lung. Some benign-appearing increased markings are noted in the anterior basal segment of the left lower lobe, not previously present. There are no pleural effusions. No findings in the trachea and mainstem bronchi. There is no bronchiectasis. MEDIASTINUM: There is no obvious hilar nor mediastinal adenopathy. No axillary adenopathy.The lower h chinmay the thyroid gland is included in the field this study. There appears to be a small nodule in the posterior aspect of the left lobe of the thyroid. CARDIAC: Heart size is normal. There is no pericardial effusion.Caliber of the thoracic aorta is wit hin normal limits. VISUALIZED UPPER ABDOMEN:Gallstones noted. There is also a round calcified 9mm zxcdensity associated with the lateral wall of the duodenum. This is too lateral to be a calcified aneurysm of the gastro duodenal artery. OSSEOUS: No significant osseous lesions.No fractures.. IMPRESSION: 1. Compared to the prior CT scan of 08/12/2021 there is now a small 4 millimeter right upper lobe nod ule evident. Also some new benign-appearing markings in the left lower lobe anterior basal segment. No other focal pulmonary findings nor pleural effusions nor intrathoracic adenopathy. 2. Recommend repeat noninfused CT scan in 6 months 3. Gallstones incidentally noted as well as other abdominal findings as described above. 4. Possible subtle small nodule in the posterior aspect of the left thyroid lobe, the thyroid gland being only partially included in the field of view this chest study. RADIATION DOSE DELIVERED: 919.59mGy.cm Total DLP DATA REPOSITORY: All CT scans at this facility are submitted to the National Radiology Data Registry (NRDR) Dose Index Registry (DIR) with the [employer] ([employer]). RADIATION OPTIMIZATION: All CT scans at this facility use at least one of these dose optimization te chniques: automated exposure control; mA and/or kV adjustment per patient size (includes targeted exa ms where dose is matched to clinical indication); or iterative reconstruction.
== END 2022-08-14 02:26 ==
LOC: DI 02:07
PROVIDERS: PCP Nurse Practitioner Family; Visit Provider Physician Assistant Surgical
DX: J44.1 Chronic obstructive pulmonary disease with (acute) exacerbation (principal); Z87.891 Personal history of nicotine dependence; R91.1 Solitary pulmonary nodule; E04.1 Nontoxic single thyroid nodule; J98.4 Other disorders of lung
CPT/HCPCS: 71250

== ENCOUNTER 2022-08-17 11:07 | Outpatient (REF) | payer MEDICAID, SELFPAY ==
[2022-08-17 15:17] LABS: ESR 38 mm/hr (0-30)
[2022-08-17 15:19] LABS: HCT 54.9 % (36.0-46.0); HGB 17.1 g/dL (11.2-15.7); MCH 26.7 pg (27.0-33.0); MCHC 31.1 % (32.0-36.0); MCV 86 fL (80-95); MPV 10.4 fL (8.0-11.0); Platelet Count 107 10^3/uL (130-400); RBC 6.41 10^6/uL (3.93-5.22); RDW 15.5 % (11.7-14.6); WBC 13.49 10^3/uL (4.4-10.8)
[2022-08-17 16:04] LABS: ALT 22 U/L (14-59); AST 16 U/L (15-37); Albumin 3.3 g/dL (3.4-5.0); Alkaline Phosphatase 104 U/L (46-116); Anion Gap 5.7 mmol/L (3-11); BUN 12 mg/dL (7-18); Bilirubin, Total 0.5 mg/dL (0.2-1.0); C-Reactive Protein 1.22 mg/dL (0.0-0.3); CO2 32.3 mmol/L (21.0-32.0); Calcium 9.1 mg/dL (8.5-10.1); Chloride 102 mmol/L (98-107); Glucose 209 mg/dL (74-106); Potassium 4.4 mmol/L (3.5-5.1); Sodium 140 mmol/L (136-145); TSH 1.44 uIU/mL (0.36-3.74); Total Protein 6.9 g/dL (6.4-8.2)
== END 2022-08-17 11:08 | disposition home or self-care (01) ==
LOC: NCHCN 11:07
PROVIDERS: PCP Nurse Practitioner Family; Visit Provider Nurse Practitioner Family
DX: R63.4 Abnormal weight loss (principal); J44.9 Chronic obstructive pulmonary disease, unspecified
CPT/HCPCS: 80053; 85027; 85652; 84443; 86140

== ENCOUNTER 2022-11-15 11:18 | Outpatient (REF) | payer MEDICAID, SELFPAY ==
[2022-11-15 15:49] LABS: Hemoglobin A1C 5.8 % (<5.7)
== END 2022-11-15 11:19 | disposition home or self-care (01) ==
LOC: NCHCN 11:18
PROVIDERS: PCP Nurse Practitioner Family; Visit Provider Nurse Practitioner Family
DX: R73.9 Hyperglycemia, unspecified (principal)
CPT/HCPCS: 83036

== ENCOUNTER 2023-08-14 15:42 | Outpatient (REF) | payer MEDICAID, SELFPAY ==
[2023-08-14 16:50] LABS: HCT 53.1 % (36.0-46.0); HGB 16.5 g/dL (11.2-15.7); MCH 27.5 pg (27.0-33.0); MCHC 31.1 % (32.0-36.0); MCV 89 fL (80-95); RBC 5.99 10^6/uL (3.93-5.22); RDW 13.3 % (11.7-14.6); WBC 9.67 10^3/uL (4.4-10.8)
[2023-08-14 17:03] LABS: Calculated LDL 139 mg/dL (<100); Cholesterol 211 mg/dL (<200); HDL Cholesterol 48 mg/dL (40-60); Triglyceride 120 mg/dL (<150)
[2023-08-14 17:07] LABS: Hemoglobin A1C 5.8 % (<5.7)
== END 2023-08-14 15:43 | disposition home or self-care (01) ==
LOC: NCHCN 15:42
PROVIDERS: PCP Nurse Practitioner Family; Visit Provider Nurse Practitioner Family
DX: J44.9 Chronic obstructive pulmonary disease, unspecified (principal); R73.03 Prediabetes; E78.89 Other lipoprotein metabolism disorders
CPT/HCPCS: 80061; 85027; 83036

== ENCOUNTER 2023-10-04 14:49 | Outpatient (REF) | payer MEDICAID, SELFPAY ==
[2023-10-04 19:22] LABS: Abs Immature Grans 0.04 10^3/uL (0.0-0.06); Absolute Basophil Count 0.08 10^3/uL (0.0-0.2); Absolute Eosinophil Count 0.15 10^3/uL (0.0-0.7); Absolute Lymphocyte Count 1.93 10^3/uL (1.2-3.4); Absolute Neutrophil Count 6.14 10^3/uL (1.2-6.7); Basophils % 0.9 %; Eosinophils % 1.6 %; HCT 51.9 % (36.0-46.0); HGB 16.3 g/dL (11.2-15.7); Immature Grans % 0.4 %; Lymphocytes % 21.1 %; MCH 27.8 pg (27.0-33.0); MCHC 31.4 % (32.0-36.0); MCV 88 fL (80-95); Monocytes % 8.8 %; Neutrophils % 67.2 %; RBC 5.87 10^6/uL (3.93-5.22); RDW 13.1 % (11.7-14.6); RDW-SD 42.7 fL; WBC 9.14 10^3/uL (4.4-10.8)
== END 2023-10-04 14:50 | disposition home or self-care (01) ==
LOC: LBN 14:49
PROVIDERS: PCP Nurse Practitioner Family; Visit Provider Physician Assistant Surgical
DX: J43.9 Emphysema, unspecified (principal)
CPT/HCPCS: 85025

== ENCOUNTER 2023-11-28 10:57 | Observation (INO) | payer MEDICAID, SELFPAY ==
[2023-11-28] VITALS (40 sets, daily range): BP systolic 83–154; BP diastolic 49–117; PULSE 72–111; RESP 17–36; TEMP 35.6–38.7; O2SAT 88–95; BMI 60.0
--- NOTE | 2023-11-28 11:15 | DI.CT_ITS ---
Exam(s) CT LOWER EXTREMITY LT W EXAM: CT LOWER EXTREMITY LT W CLINICAL HISTORY: left groin infection. TECHNIQUE: Imaging Protocol: Axial computed tomography images with coronal and sagittal reformatted images were created and reviewed. CONTRAST MATERIAL: Intravenous: Omnipaque 350 Contrast volume:100 contrast route:IV - Oral: None COMPARISON: No exams were available for comparison FINDINGS: This is an extremely suboptimal quality study with images barely readable. Patient should be re-scan dulce. However, it is noted that there is subcutaneous and deep subcutaneous gas in the soft tissues on the medial aspect of the upper left thigh with abnormal streaking in the fat tissue at this level. This is therefore significantly suspicious for concerning infection, including risk for Trena's necroti zing fasciitis. IMPRESSION: Suspicious for developing Trena's necrotizing fasciitis. Discussed by phone with ER physician RADIATION DOSE DELIVERED: Total DLP DATA REPOSITORY: All CT scans at this facility are submitted to the National Radiology Data Registry (NRDR) Dose Index Registry (DIR) with the [employer] (ACR). RADIATION OPTIMIZATION: All CT scans at this facility use at least one of these dose optimization te chniques: automated exposure control; mA and/or kV adjustment per patient size (includes targeted exa ms where dose is matched to clinical indication); or iterative reconstruction.
--- NOTE | 2023-11-28 11:29 | W.ED.GENAD ---
Discharge Plan Disposition Patient Disposition: Admit to [facility] Condition: Serious Discharge Details Chief Complaint: Cellulitis Clinical Impression: Necrotizing soft tissue infection, Abscess of right thigh, Sepsis Admit Date/Time: 11/28/23 18:22 Admit Provider: Dar Springer Attending Provider: Dar Springer Primary Care Provider: China Gonzalez ED Provider: Chris Quevedo Discharge Data Discharge Date/Time-TO BE ENTERED AT DEPARTURE: 11/28/23 18:06 HPI General Mode of arrival: ambulatory. Date/Time Provider Initiated Documentation: 11/28/23 11:15. Limitations to Documentation: no limitations. Information obtained by: patient. HPI Narrative: 63-year-old female with multimedical problems including history of COPD, recently completed course of prednisone, here with 3 days of worsening inflammation left groin, now with fever, generally not feeling well. Patient notes no prior inflammation in this area. She is concerned for infection. Patient was seen in [facility] and sent to the ED for further diagnostics and treatment. Related Data Home Medications ?Medication ?Instructions ?Recorded ?Confirmed Oxygen #1 ea 12/02/20 11/28/23 albuterol sulfate 90 mcg/actuation See Rx Instructions .Route 12/04/22 11/28/23 aerosol inhaler (Ventolin HFA) .COMPLEX #18 grams budesonide-formoterol HFA 80 See Rx Instructions .Route 12/18/22 11/28/23 mcg-4.5 mcg/actuation aerosol .COMPLEX #10.2 grams inhaler (Symbicort) tiotropium bromide 2.5 See Rx Instructions .Route 01/04/23 11/28/23 mcg/actuation mist for inhalation .COMPLEX #12 grams (Spiriva Respimat) azithromycin 250 mg tablet 250 mg PO DAILY COPD #90 tabs 05/04/23 11/28/23 metformin 500 mg tablet 500 mg PO BID 05/28/23 11/28/23 ipratropium 0.5 mg-albuterol 3 mg 3 ml inhalation QID PRN shortness 07/17/23 11/28/23 (2.5 mg base)/3 mL nebulization of breath #540 mL soln ibuprofen 800 mg tablet 800 mg PO Q12H PRN 11/28/23 11/28/23 Previous Rx's ?Medication ?Instructions ?Recorded albuterol sulfate 90 mcg/actuation See Rx Instructions .Route 12/04/22 aerosol inhaler (Ventolin HFA) .COMPLEX #18 grams budesonide-formoterol HFA 80 See Rx Instructions .Route 12/18/22 mcg-4.5 mcg/actuation aerosol .COMPLEX #10.2 grams inhaler (Symbicort) tiotropium bromide 2.5 See Rx Instructions .Route 01/04/23 mcg/actuation mist for inhalation .COMPLEX #12 grams (Spiriva Respimat) azithromycin 250 mg tablet 250 mg PO DAILY COPD #90 tabs 05/04/23 ipratropium 0.5 mg-albuterol 3 mg 3 ml inhalation QID PRN shortness 07/17/23 (2.5 mg base)/3 mL nebulization of breath #540 mL soln Allergies Allergy/AdvReac Type Severity Reaction Status Date / Time seasonal Allergy Other (See Uncoded 11/28/23 11:03 Comment) roflumilast AdvReac Intermediate Nausea Uncoded 11/28/23 11:03 General Stated Complaint: Cellulitis CHRIS: 2 Review of Systems Constitutional Constitutional: Reports fatigue and Reports fever(s) Integumentary/Breasts Skin/Breast: Reports as per HPI Endocrine Endocrine: Reports fatigue Exam Const General: cooperative HENMT Mouth: moist mucous membranes Eyes Conjunctivae: normal conjunctivae Sclera: normal sclerae Resp Auscultation: clear to auscultation bilaterally, no rales, no rhonchi and no wheezes Cardio Rate: tachycardic Rhythm: regular rhythm GI Palpation: soft, not firm, no guarding, no masses, not rigid and nontender Skin Rashes: rashes noted (Significant erythema with swelling left groin) Neuro General: patient alert, patient awake and tone normal Extrem General: no edema Left lower extremity: hip/thigh (Swelling and erythema left groin extending into left medial thigh) Psych Appearance: grossly normal Mental Status: mental status grossly normal Course Vital Signs Vital signs: Vital Signs Temperature 36.5 C 11/28/23 11:00 Pulse 111 H 11/28/23 11:00 Respiratory Rate 22 11/28/23 11:00 Blood Pressure 146/74 H 11/28/23 11:00 Pulse Oximetry 92 11/28/23 11:00 Temperature 38.7 C H 11/28/23 11:16 Temperature Source Oral 11/28/23 11:16 Pulse 111 H 11/28/23 11:16 Respiratory Rate 22 11/28/23 11:16 Respiratory Effort Normal, Non-Labored 11/28/23 11:16 Blood Pressure 146/74 H 11/28/23 11:16 Blood Pressure Position Sitting 11/28/23 11:16 Pulse Oximetry 92 11/28/23 11:16 Oxygen Delivery Method Room Air 11/28/23 11:16 Pain Level 10 11/28/23 11:16 Lab/Test Results Lab/Test Results: 11/28/23 11:16 Blood Blood Culture - Pending 11/28/23 11:16 Blood Blood Culture - Pending Medical Decision Making 1155 --63-year-old female with multiple medical problems including history of COPD, recently completed course of prednisone, here with inflammation of the left groin worsening over the past 3 days, febrile and tachycardic. Patient meets sepsis criteria. Plan to initiate IV fluid resuscitation and broad-spectrum antibiotic coverage with vancomycin and cefepime. Will obtain CT of the area to assess for deep space infection. -- CT interpreted by radiology: air in soft tissue anterior medial thigh. Initial CT limited by significant artifact. Concern for deep space infection. Plan to repeat. Plan to initiate treatment with vanc IV and cefepime IV and clindamycin IV. I contacted Dr. Springer, semiconductor engineer surgeon, discussed ED presentation and course. He evaluated the patient and will admit with paln for OR source control. Lab Data Lab results reviewed: Yes I reviewed the patient's lab results. Labs: 11/28/23 18:05 Groin - Left Surgical Culture - Preliminary 11/28/23 18:05 Groin - Left Gram Stain - Final 11/28/23 11:53 Blood Blood Culture - Preliminary NO GROWTH 24 HOURS 11/28/23 11:40 Blood Blood Culture - Preliminary NO GROWTH 24 HOURS 11/28/23 18:05 Groin - Left Anaerobic Culture - Pending Laboratory Tests Range/Units 11/28/23 11/28/23 11/28/23 11:40 12:07 14:45 WBC (4.4-10.8) 10^3/uL 24.87 H RBC (3.93-5.22) 10^6/uL 5.83 H Hgb (11.2-15.7) g/dL 16.3 H Hct (36.0-46.0) % 50.0 H MCV (80-95) fL 86 MCH (27.0-33.0) pg 28.0 MCHC (32.0-36.0) % 32.6 RDW (11.7-14.6) % 13.6 Plt Count (130-400) 10^3/uL 122 L MPV (8.0-11.0) fL 9.4 Immature Gran % % 1.1 Neutrophils % % 88.2 Lymphocytes % % 4.5 Monocytes % % 5.9 Eosinophils % % 0.0 Basophils % % 0.3 Nucleated RBC % (0.0-0.3) % 0.0 Absolute Neutrophils (1.2-6.7) 10^3/uL 21.94 H Absolute Lymphocytes (1.2-3.4) 10^3/uL 1.12 L Absolute Monocytes (0.1-0.8) 10^3/uL 1.47 H Absolute Eosinophils (0.0-0.7) 10^3/uL 0.00 Absolute Basophils (0.0-0.2) 10^3/uL 0.07 RBC Morphology Normal VBG Lactate (0.6-1.4) mmol/L 1.2 1.4 Sodium (136-145) mmol/L 136 Potassium (3.5-5.1) mmol/L 3.5 Chloride (98-107) mmol/L 101 Carbon Dioxide (21.0-32.0) mmol/L 28.7 Anion Gap (3-11) mmol/L 6.3 BUN (7-18) mg/dL 21 H Creatinine (0.55-1.02) mg/dL 0.9 Est GFR (CKD-EPI 2020) (mL/min/1.73m2) 72.73 Glucose (74-106) mg/dL 113 H Calcium (8.5-10.1) mg/dL 8.6 Total Bilirubin (0.2-1.0) mg/dL 1.25 H AST (15-37) U/L 13 L ALT (14-59) U/L 19 Alkaline Phosphatase (46-116) U/L 104 Total Protein (6.4-8.2) g/dL 7.2 Albumin (3.4-5.0) g/dL 3.0 L Procalcitonin ng/mL 0.2 COVID-19 Source Nasal/Nares SARS-CoV-2 (PCR) (Negative) Negative MRSA (TEM-PCR) (Negative) Negative Range/Units 11/28/23 17:22 WBC (4.4-10.8) 10^3/uL RBC (3.93-5.22) 10^6/uL Hgb (11.2-15.7) g/dL Hct (36.0-46.0) % MCV (80-95) fL MCH (27.0-33.0) pg MCHC (32.0-36.0) % RDW (11.7-14.6) % Plt Count (130-400) 10^3/uL MPV (8.0-11.0) fL Immature Gran % % Neutrophils % % Lymphocytes % % Monocytes % % Eosinophils % % Basophils % % Nucleated RBC % (0.0-0.3) % Absolute Neutrophils (1.2-6.7) 10^3/uL Absolute Lymphocytes (1.2-3.4) 10^3/uL Absolute Monocytes (0.1-0.8) 10^3/uL Absolute Eosinophils (0.0-0.7) 10^3/uL Absolute Basophils (0.0-0.2) 10^3/uL RBC Morphology VBG Lactate (0.6-1.4) mmol/L 1.1 Sodium (136-145) mmol/L Potassium (3.5-5.1) mmol/L Chloride (98-107) mmol/L Carbon Dioxide (21.0-32.0) mmol/L Anion Gap (3-11) mmol/L BUN (7-18) mg/dL Creatinine (0.55-1.02) mg/dL Est GFR (CKD-EPI 2020) (mL/min/1.73m2) Glucose (74-106) mg/dL Calcium (8.5-10.1) mg/dL Total Bilirubin (0.2-1.0) mg/dL AST (15-37) U/L ALT (14-59) U/L Alkaline Phosphatase (46-116) U/L Total Protein (6.4-8.2) g/dL Albumin (3.4-5.0) g/dL Procalcitonin ng/mL COVID-19 Source SARS-CoV-2 (PCR) (Negative) MRSA (TEM-PCR) (Negative) Quality:SDOH Health Related Social Needs: No Data to Display Critical Care Time Critical Care Time Critical Care Time: Yes Total Critical Care Time: 45 Attestation: I spent 45 min providing critical care to address immediately life threatening condition - sepsis. [facility] All Active Problems (Updated 11/30/23 @ 09:03 by Chris Quevedo MD) Sepsis (Acute) Abscess of right thigh (Acute) Necrotizing soft tissue infection (Acute) Necrotizing soft tissue infection (Acute) Thrombocytopenia (Chronic) Venous stasis dermatitis (Acute) Internal hemorrhoids (Acute) Tension headache (Acute) Pulmonary nodule (Acute) Leg cramping (Acute) Nail dystrophy (Acute) PVD (peripheral vascular disease) (Chronic) Respiratory failure with hypoxia (Acute) COPD, frequent exacerbations (Acute) Stasis dermatitis of both legs (Acute) Venous insufficiency (Acute) On prednisone therapy (Acute) Edema (Acute) Ex-cigarette smoker (Acute) Peripheral edema (Acute) TEENA (obstructive sleep apnea) (Chronic) Morbid obesity (Acute) COPD (chronic obstructive pulmonary disease) (Acute) Followed by mergers and acquisitions consultant Medical History Personal history of nicotine dependence Tubular adenoma of colon Polycythemia 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 Patient was referred to urology at [facility] for assessment and treatment Tobacco use 01/2019 patient reports 2 cigarettes/day Surgical History Fistula, anal Repaired with 2003 H/O tubal ligation 1986 Family History Father , age 59 Cancer brain cancer. Mother , age 63 Cancer Lung cancer. COPD (chronic obstructive pulmonary disease) Sister Hypertension Brother Hypertension Heart disease Heart failure, heart disease. Social History Smoking/Tobacco Use Status: Former Tobacco Use Quit Date: 04/13/20 Pack-years: 40 Smoking risk assessment performed?: Yes Alcohol Intake: never Drug use: Never Substance use type: does not use Housing: house Pets and animals: Yes (5 cats, 1 dog) Pets and animals: cat(s) and dog(s) Current gender identity: female Do you feel safe at home: Yes Do you feel safe in your relationship?: Yes History History 4 Para Hx # Term Pregnancies 2 Multiple births Hx # Pregnancies Ectopic pregnancies AB induced Hx Number of Living Children AB spontaneous
[2023-11-28 11:45] LABS: Lactate 1.2 mmol/L (0.6-1.4)
[2023-11-28 11:48] LABS: Abs Immature Grans 0.27 10^3/uL (0.0-0.06); Absolute Basophil Count 0.07 10^3/uL (0.0-0.2); Absolute Lymphocyte Count 1.12 10^3/uL (1.2-3.4); Absolute Monocyte Count 1.47 10^3/uL (0.1-0.8); Absolute Neutrophil Count 21.94 10^3/uL (1.2-6.7); Basophils % 0.3 %; HGB 16.3 g/dL (11.2-15.7); Immature Grans % 1.1 %; Lymphocytes % 4.5 %; MCHC 32.6 % (32.0-36.0); MCV 86 fL (80-95); MPV 9.4 fL (8.0-11.0); Monocytes % 5.9 %; Neutrophils % 88.2 %; Platelet Count 122 10^3/uL (130-400); RBC 5.83 10^6/uL (3.93-5.22); RDW 13.6 % (11.7-14.6); RDW-SD 42.2 fL; WBC 24.87 10^3/uL (4.4-10.8)
[2023-11-28] MEDS: VANCOMYCIN/WATER (PEG) 2 GM/400 ML BAG IV (12:00)
[2023-11-28] MEDS: CEFEPIME 2 GM in Normal Saline 100 ML IVPB (12:02)
[2023-11-28 12:03] LABS: ALT 19 U/L (14-59); AST 13 U/L (15-37); Alkaline Phosphatase 104 U/L (46-116); Anion Gap 6.3 mmol/L (3-11); BUN 21 mg/dL (7-18); Bilirubin, Total 1.25 mg/dL (0.2-1.0); CO2 28.7 mmol/L (21.0-32.0); CREATININE 0.9 mg/dL (0.55-1.02); Calcium 8.6 mg/dL (8.5-10.1); Chloride 101 mmol/L (98-107); Estimated GFR 72.73 (mL/min/1.73m2); Glucose 113 mg/dL (74-106); Potassium 3.5 mmol/L (3.5-5.1); Sodium 136 mmol/L (136-145); Total Protein 7.2 g/dL (6.4-8.2)
[2023-11-28] MEDS: Lactated Ringers 1,000 ML 2000 ML IV (12:03)
[2023-11-28 12:11] LABS: Source Nasal/Nares
[2023-11-28 12:14] LABS: Diff Comment Diff Reviewed; RBC Morphology Normal
[2023-11-28 12:18] LABS: Procalcitonin 0.2 ng/mL
[2023-11-28] MEDS: Normal Saline - Diluent 50 ML VIAL IJ ×2 (12:29→16:15)
[2023-11-28] MEDS: Omnipaque 350 MG/ML 100 ML BTL IJ ×2 (12:31→16:16)
[2023-11-28 12:49] LABS: COVID-19 PCR Negative (Negative)
[2023-11-28] MEDS: Lactated Ringers 1,000 ML 100 ML IV (13:24)
[2023-11-28 13:42] LABS: MRSA PCR Negative (Negative)
[2023-11-28 14:51] LABS: Lactate 1.4 mmol/L (0.6-1.4)
[2023-11-28] MEDS: ACETAMINOPHEN 1,000 MG/100 ML BTL 400 MG (15:48)
[2023-11-28] MEDS: CLINDAMYCIN 600 MG/50 ML BAG 100 MG IVPB (15:55)
--- NOTE | 2023-11-28 16:00 | DI.CT_ITS ---
Exam(s) CT LOWER EXTREMITY LT W EXAM: CT LOWER EXTREMITY LT W CLINICAL HISTORY: hip and groin inflammation. TECHNIQUE: Imaging Protocol: Axial computed tomography images with coronal and sagittal reformatted images were created and reviewed. CONTRAST MATERIAL: Intravenous: Omnipaque 350 Contrast volume:100 ml Contrast route:IV - COMPARISON: CT CT LOWER EXTREMITY LT W from 11/28/2023 FINDINGS: The patient was rescanned. There is less artifact on the current study. The exam shows increased im age noise due to patient body habitus. Bones: There is no evidence of fracture or dislocation. No cellulitic or osteomyelitic changes are identified. No lytic or sclerotic lesions are identified. Joints: There is no significant joint space narrowing. No significant periarticular spurring. Soft Tissues: Abnormal gas collection again noted in the soft tissues of the anterior left hip and t high, near the crease. No drainable fluid collection. Adjacent reactive lymph nodes. The bladder, uterus and left ovary are unremarkable. The bowel is unremarkable where visualized. IMPRESSION: Abnormal gas and the anterior soft tissues of the hip and upper thigh, consistent with infection and possible necrotizing fasciitis. No drainable abscess. RADIATION DOSE DELIVERED: Total DLP DATA REPOSITORY: All CT scans at this facility are submitted to the National Radiology Data Registry (NRDR) Dose Index Registry (DIR) with the [employer] (ACR). RADIATION OPTIMIZATION: All CT scans at this facility use at least one of these dose optimization te chniques: automated exposure control; mA and/or kV adjustment per patient size (includes targeted exa ms where dose is matched to clinical indication); or iterative reconstruction.
--- NOTE | 2023-11-28 16:55 | W.PM.HP.N ---
Date of service: 11/28/23 Time of Service: 16:55 Assessment and Plan Assessment and plan (1) Necrotizing soft tissue infection: Status: Acute Assessment and plan: Clinical features are most consistent with a superficial necrotizing soft tissue infection. I was able to review the CT scan, and it certainly tracks on the medial thigh slightly anterior in the area of the greater saphenous vein. Clinical features are not exactly consistent with necrotizing fasciitis, and I suspect this is more likely a polymicrobial necrotizing soft tissue infection. She is already received some broad-spectrum antibiotics, and I explained the risks and benefits of incision and drainage with irrigation and packing. I think she has a good understanding of this, what to expect in terms of recovery. I have notified the operating room, will move there is an emergent cases soon as possible. History of Present Illness History of Present Illness Chief Complaint: Left groin pain Narrative: Fadia is 63 years old. She has had increasing pain in the left groin for about 2 and half to 3 days. Last night, it came to ahead, and ruptured while she was sleeping. She woke to foul-smelling bloody fluid all around her groin. Since then, she has felt increasingly fatigued and lethargic. She had some subjective fevers at home. She denies nausea or vomiting. Review of Systems Constitutional Constitutional: Reports fatigue, Reports fever(s), Reports lethargy, Reports malaise and Denies poor appetite Eyes Eyes: Reports system reviewed and no additional complaints, except as documented ENT Ears, Nose, Mouth, and Throat: Reports system reviewed and no additional complaints, except as documented Cardiovascular Cardiovascular: Denies chest pain and Denies dyspnea Respiratory Respiratory: Denies chest congestion, Reports cough and Denies dyspnea Gastrointestinal Gastrointestinal: Denies abdominal pain, Denies diarrhea, Denies nausea and Denies vomiting Genitourinary Genitourinary: Reports system reviewed and no additional complaints, except as documented Musculoskeletal Musculoskeletal: Reports abnormal gait (Pain) Neurologic Neurologic: Reports system reviewed and no additional complaints, except as documented and Reports abnormal gait (Pain) Psychiatric Psychiatric: Reports system reviewed and no additional complaints, except as documented Endocrine Endocrine: Reports fatigue Hematologic/Lymphatic Hematologic/Lymphatic: Denies easy bleeding and Denies easy bruising PFSH All Active Problems (Updated 11/28/23 @ 16:59 by Dar Springer MD) Necrotizing soft tissue infection (Acute) Thrombocytopenia (Chronic) Venous stasis dermatitis (Acute) Internal hemorrhoids (Acute) Tension headache (Acute) Pulmonary nodule (Acute) Leg cramping (Acute) Nail dystrophy (Acute) PVD (peripheral vascular disease) (Chronic) Personal history of nicotine dependence (Acute) Respiratory failure with hypoxia (Acute) COPD, frequent exacerbations (Acute) Stasis dermatitis of both legs (Acute) Venous insufficiency (Acute) On prednisone therapy (Acute) Edema (Acute) Ex-cigarette smoker (Acute) Peripheral edema (Acute) TEENA (obstructive sleep apnea) (Chronic) Morbid obesity (Acute) COPD (chronic obstructive pulmonary disease) (Acute) Followed by student loan counselor Medical History Tubular adenoma of colon Polycythemia 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 Patient was referred to urology at [facility] for assessment and treatment Tobacco use 01/2019 patient reports 2 cigarettes/day Surgical History Fistula, anal Repaired with 2003 H/O tubal ligation 1987 Family History Father , age 59 Cancer brain cancer. Mother , age 63 Cancer Lung cancer. COPD (chronic obstructive pulmonary disease) Sister Hypertension Brother Hypertension Heart disease Heart failure, heart disease. Social History Smoking/Tobacco Use Status: Former Tobacco Use Quit Date: 04/13/20 Pack-years: 40 Smoking risk assessment performed?: Yes Alcohol Intake: never Drug use: Never Substance use type: does not use Housing: house Pets and animals: Yes (5 cats, 1 dog) Pets and animals: cat(s) and dog(s) Current gender identity: female Do you feel safe at home: Yes Do you feel safe in your relationship?: Yes History History 4 Para Hx # Term Pregnancies 2 Multiple births Hx # Pregnancies Ectopic pregnancies AB induced Hx Number of Living Children AB spontaneous Meds Allergies and Home Medications Allergies Allergy/AdvReac Type Severity Reaction Status Date / Time seasonal Allergy Other (See Uncoded 11/28/23 11:03 Comment) roflumilast AdvReac Intermediate Nausea Uncoded 11/28/23 11:03 Home Medications ?Medication ?Instructions ?Recorded ?Confirmed ?Type Oxygen #1 ea 12/02/20 11/28/23 History albuterol sulfate 90 mcg/actuation See Rx Instructions .Route 12/04/22 11/28/23 Rx aerosol inhaler (Ventolin HFA) .COMPLEX #18 grams budesonide-formoterol HFA 80 See Rx Instructions .Route 12/18/22 11/28/23 Rx mcg-4.5 mcg/actuation aerosol .COMPLEX #10.2 grams inhaler (Symbicort) tiotropium bromide 2.5 See Rx Instructions .Route 01/04/23 11/28/23 Rx mcg/actuation mist for inhalation .COMPLEX #12 grams (Spiriva Respimat) azithromycin 250 mg tablet 250 mg PO DAILY COPD #90 tabs 05/04/23 11/28/23 Rx metformin 500 mg tablet 500 mg PO BID 05/28/23 11/28/23 History ipratropium 0.5 mg-albuterol 3 mg 3 ml inhalation QID PRN shortness 07/17/23 11/28/23 Rx (2.5 mg base)/3 mL nebulization of breath #540 mL soln ibuprofen 800 mg tablet 800 mg PO Q12H PRN 11/28/23 11/28/23 History Exam Const General: cooperative and comfortable Orientation: alert, awake and oriented x3 HENMT Head: normal to inspection Eyes General: appearance normal, both eyes and all related structures Neck Neck: normal visual inspection and full ROM Resp Effort & Inspection: audible wheezes Cardio Rate: regular rate Rhythm: regular rhythm Heart Sounds: S1 normal and S2 normal GI Percussion: normal to percussion Auscultation: normal bowel sounds Other: External genitalia and labia majora are normal-appearing. There is erythema and tenderness on the medial aspect of the left thigh. Skin Other: The medial aspect of the left thigh below the inguinal crease is erythematous and indurated. It is tender with foul-smelling seropurulent discharge from the wound that is approximately 1 cm long on the medial thigh Results Imaging Abdomen CT scan report/results: report reviewed and image reviewed Labs 11/28/23 11:40 11/28/23 11:40 Labs: Laboratory Results - last 24 hr 11/28/23 11/28/23 11/28/23 11:40 12:07 14:45 WBC 24.87 H RBC 5.83 H Hgb 16.3 H Hct 50.0 H MCV 86 MCH 28.0 MCHC 32.6 RDW 13.6 Plt Count 122 L MPV 9.4 Immature Gran % 1.1 Neutrophils % 88.2 Lymphocytes % 4.5 Monocytes % 5.9 Eosinophils % 0.0 Basophils % 0.3 Nucleated RBC % 0.0 Absolute Neutrophils 21.94 H Absolute Lymphocytes 1.12 L Absolute Monocytes 1.47 H Absolute Eosinophils 0.00 Absolute Basophils 0.07 RBC Morphology Normal VBG Lactate 1.2 1.4 Sodium 136 Potassium 3.5 Chloride 101 Carbon Dioxide 28.7 Anion Gap 6.3 BUN 21 H Creatinine 0.9 Est GFR (CKD-EPI 2020) 72.73 Glucose 113 H Calcium 8.6 Total Bilirubin 1.25 H AST 13 L ALT 19 Alkaline Phosphatase 104 Total Protein 7.2 Albumin 3.0 L Procalcitonin 0.2 COVID-19 Source Nasal/Nares SARS-CoV-2 (PCR) Negative MRSA (TEM-PCR) Negative Last Vital Signs Temp 101.7 F H 11/28/23 11:16 Pulse 111 H 11/28/23 11:16 Resp 22 11/28/23 11:16 BP 146/74 H 11/28/23 11:16 Pulse Ox 92 11/28/23 11:16 Time Spent Time spent with Patient: <40 minutes Time was spent: preparing to see the patient(eg.review tests), obtaining and/or reviewing separately otained hiistory, referring, communicating with other health adult live in caregiver, indepentently interpreting results and counseling the patient
--- NOTE | 2023-11-28 17:03 | ANES.PREOP_ITS ---
General Info Date of Service Date Performed: 11/28/23 Height: 5 ft 4 in Weight: 158.757 kg Body Mass Index (BMI): 60.0 Meds Allergies and Home Medications Allergies Allergy/AdvReac Type Severity Reaction Status Date / Time seasonal Allergy Other (See Uncoded 11/28/23 11:03 Comment) roflumilast AdvReac Intermediate Nausea Uncoded 11/28/23 11:03 Home Medication ?Medication ?Instructions ?Recorded Oxygen #1 ea 12/02/20 albuterol sulfate 90 mcg/actuation See Rx Instructions .Route 12/04/22 aerosol inhaler (Ventolin HFA) .COMPLEX #18 grams budesonide-formoterol HFA 80 See Rx Instructions .Route 12/18/22 mcg-4.5 mcg/actuation aerosol .COMPLEX #10.2 grams inhaler (Symbicort) tiotropium bromide 2.5 See Rx Instructions .Route 01/04/23 mcg/actuation mist for inhalation .COMPLEX #12 grams (Spiriva Respimat) azithromycin 250 mg tablet 250 mg PO DAILY COPD #90 tabs 05/04/23 metformin 500 mg tablet 500 mg PO BID 05/28/23 ipratropium 0.5 mg-albuterol 3 mg 3 ml inhalation QID PRN shortness 07/17/23 (2.5 mg base)/3 mL nebulization of breath #540 mL soln ibuprofen 800 mg tablet 800 mg PO Q12H PRN 11/28/23 Current Visit Medications: Current Medications Generic Name Dose Route Start Last Admin Trade Name Freq PRN Reason Stop Dose Admin Ringer's Solution 1,000 mls @ 100 mls/hr 11/28/23 11:15 11/28/23 13:24 IV 100 mls/hr INFUSION TRACY Administration IV Miscellaneous Supplies 1 each 11/28/23 11:15 Iv Access IV DIRECTED TRACY Iohexol 100 ml 11/28/23 12:30 11/28/23 16:16 Omnipaque 350 Mg/Ml 100 Ml Btl IJ 12/28/23 23:59 100 ml DIRECTED TRACY Administration Sodium Chloride 0 ml 11/28/23 11:15 Normal Saline Flush 10 Ml Syr IVP PRN PRN Sodium Chloride 0 ml 11/28/23 20:00 Normal Saline Flush 10 Ml Syr IVP BID TRACY Sodium Chloride 0 ml 11/28/23 11:15 Normal Saline 10 Ml Vial IJ DIRECTED PRN Sodium Chloride 50 ml 11/28/23 12:30 11/28/23 16:15 Normal Saline - Diluent 50 Ml Vial IJ 50 ml .FOR DI USE TRACY Administration PFSH Active Problems Active Problems: Problem Status Onset Code Necrotizing soft tissue infection Acute M79.89 Thrombocytopenia Chronic D69.6 Venous stasis dermatitis Acute I87.2 Internal hemorrhoids Acute K64.8 Tension headache Acute G44.209 Pulmonary nodule Acute R91.1 Leg cramping Acute R25.2 Nail dystrophy Acute L60.3 PVD (peripheral vascular disease) Chronic I73.9 Personal history of nicotine dependence Acute Z87.891 Respiratory failure with hypoxia Acute J96.91 COPD, frequent exacerbations Acute J44.1 Stasis dermatitis of both legs Acute I87.2 Venous insufficiency Acute I87.2 On prednisone therapy Acute Z79.52 Edema Acute R60.9 Ex-cigarette smoker Acute Z87.891 Peripheral edema Acute R60.9 TEENA (obstructive sleep apnea) Chronic G47.33 Morbid obesity Acute E66.01 COPD (chronic obstructive pulmonary disease) Acute J44.9 Medical History Medical History Tubular adenoma of colon Polycythemia 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 Patient was referred to urology at [facility] for assessment and treatment Tobacco use 01/2019 patient reports 2 cigarettes/day Surgical History Surgical History Fistula, anal Repaired with 2003 H/O tubal ligation 1986 Tobacco Smoking/Tobacco Use Status: Former Tobacco Use Alcohol Alcohol Intake: never Substance Use Substance use: Never Substance use type: does not use Prental History History 2 4 Para Hx # Term Pregnancies 2 Multiple births Hx # Pregnancies Ectopic pregnancies AB induced Hx Number of Living Children AB spontaneous Vital Signs and Lab Results Vital Signs Most Recent Vital Signs in EMR: Most Recent Vital Signs Temp Pulse Resp BP Pulse Ox 38.7 C H 111 H 22 146/74 H 92 11/28/23 11:16 11/28/23 11:16 11/28/23 11:16 11/28/23 11:16 11/28/23 11:16 Lab Results 11/28/23 11:40 11/28/23 11:40 Blood Type / Crossmatch: 2 No Data to Display Complete Blood Count: 2 White Blood Count 24.87 10^3/uL (4.4-10.8) H 11/28/23 11:40 Red Blood Count 5.83 10^6/uL (3.93-5.22) H 11/28/23 11:40 Hemoglobin 16.3 g/dL (11.2-15.7) H 11/28/23 11:40 Hematocrit 50.0 % (36.0-46.0) H 11/28/23 11:40 Platelet Count 122 10^3/uL (130-400) L 11/28/23 11:40 Venous Blood Lactate 1.4 mmol/L (0.6-1.4) 11/28/23 14:45 Complete Metabolic Panel: 2 Sodium 136 mmol/L (136-145) 11/28/23 11:40 Potassium 3.5 mmol/L (3.5-5.1) 11/28/23 11:40 Chloride 101 mmol/L (98-107) 11/28/23 11:40 Carbon Dioxide 28.7 mmol/L (21.0-32.0) 11/28/23 11:40 BUN 21 mg/dL (7-18) H 11/28/23 11:40 Creatinine 0.9 mg/dL (0.55-1.02) 11/28/23 11:40 Est GFR (CKD-EPI 2020) 72.73 (mL/min/1.73m2) 11/28/23 11:40 Calcium 8.6 mg/dL (8.5-10.1) 11/28/23 11:40 Albumin 3.0 g/dL (3.4-5.0) L 11/28/23 11:40 Glucose 113 mg/dL (74-106) H 11/28/23 11:40 Liver Function Panel: 2 Alanine Aminotransferase (ALT/SGPT) 19 U/L (14-59) 11/28/23 11: 40 Aspartate Amino Transf (AST/SGOT) 13 U/L (15-37) L 11/28/23 11: 40 Coagulation Panel: 2 No Data to Display Cardiac Panel: 2 No Data to Display Arterial Blood Gas: 2 No Data to Display Venous Blood Gas: 2 No Data to Display Pancreas Panel: 2 No Data to Display Thyroid Panel: 2 No Data to Display Infectious Disease: 2 Coronavirus (COVID-19)(PCR) Negative (Negative) 11/28/23 12:07 Coronavirus 2019 Source Nasal/Nares 11/28/23 12:07 Blood Cultures: 2 No Data to Display Toxicology Panel: 2 No Data to Display Imaging and Studies Imaging and Studies Study information below may be from another EMR and interpreted by another provider. Please see original notes in EMR for more complete details. EKG Summary: DATE/TIME OF SERVICE: 09/06/21 1355 : 1960 PERFORMING LOCATION: ER APPROVED REPORT Exam: Resting ECG Reason for Exam: bilat leg edema Patient Location: E HR:87 bpm ECG Measurements Heart Rate 87 AXIS PA 157 P 63 QRSd 86 QRS -57 QT 362 T46 QTc 436 Conclusion Sinus rhythm Left anterior fascicular block. Low voltage, extremity and precordial leads No ischemic changes Pulmonary Function Summary: Date of service: 12/09/20 Time of Service: 08:09 Pulmonary Function Test Result Requesting Provider Kiara Coyle Interpretation Spirometry: There is no airflow obstruction. Although there is technically no significant bronchodilator response, the FVC did improve by 11% and 160 cc with albuterol administration. There is a restrictive pattern present in spirometry. Impression There is no airflow obstruction. The restrictive pattern seen may be due to restrictive lung disease, inadequate effort, or obesity (pseudorestriction). Would recommend full pulmonary function testing with lung volumes to further assess the possibility of restrictive lung disease. Clinical Correlation therefore is recommended. Anesthesia Assessment and Plan Anesthesia History Personal History: No History of Anesthesia Complications Family History: No Family History of Anesthesia Complications Exercise Tolerance Exercise Tolerance: Metabolic Equivalents>4 Pertinent Negatives Pertinent Negatives: No Symptoms of GERD, No Major Cardiovascular Symptoms or Complaints and No History of CVA/TIA Cardiac & Pulmonary Exam Cardiac Exam: Normal S1/S2 Heart Sounds Pulmonary Exam: Clear Bilateral Breath Sounds Implantable Cardiac Device Does patient have a Pacemaker or an ICD?: No Airway Exam Known Difficult Airway: No Mallampati Class: 2 Mouth Opening: Normal (> 3cm) Thyromental Distance: Less than 3 cm Neck Range of Motion: Full ROM Neck Circumference: Thick Teeth Condition: Edentulous ASA Classification ASA Score: ASA 4 Emergency Case?: No NPO Status NPO Status: NPO Clears >2 hours, Solids >8 hours Anesthesia Plan Resuscitation Status: Full Code Anesthesia Technique: General Anesthesia Airway Planned: Natural Airway Monitors Used: Standard Monitors
[2023-11-28 17:33] LABS: Lactate 1.1 mmol/L (0.6-1.4)
[2023-11-28] MEDS: Bupivacaine 0.25% Pres-Free W/EPI 30 ML VIAL (17:57)
--- NOTE | 2023-11-28 18:24 | W.PM.OP ---
Date of service: 11/28/23 Time of Service: 18:24 Operative Note Operative Note DATE OF PROCEDURE: 11/28/23 PRE-OP DIAGNOSIS: Left thigh abscess POST-OP DIAGNOSIS: same PROCEDURE: Incision and drainage of left thigh abscess SURGEON: Dar Sprinegr ANESTHESIA TYPE: Local By Surgeon and General:No Airway Refer to Anesthesia Record ESTIMATED BLOOD LOSS: 25 PATHOLOGY: other (Gram stain and culture of left thigh abscess) COMPLICATIONS: None Patient was transported to: floor Patient's condition: stable Indications: Fadia is a 63-year-old woman with medial left thigh pain, and drainage of purulent fluid. Clinical exam was consistent with an abscess or necrotizing soft tissue infection. CT scan demonstrated subcutaneous emphysema. Findings: Necrotizing soft tissue infection with abscess tract approximately 8 cm in the left thigh Procedure Description: We began by assisting Fadia to an appropriate semirecumbent position that was padded and supported appropriately. She was then placed in some frog-leg positioning that she found comfortable. Anesthesia was delivered, and I then prepped and draped the perineum, left groin, and medial and anterior left thigh. I anesthetized the skin with a generous field block using local anesthetic with epinephrine. Next, I incised the area of skin overlying the already draining lesion. This was done in a cruciate fashion to help preserve outflow. The underlying wound tract anterior and slightly cephalad approximately 8 cm in depth. There were minimal loculations to break up. Drainage was purulent and foul-smelling. Specimens were obtained for Gram stain and culture. The wound was irrigated clear, and half-inch iodoform gauze was used to pack the wound. ABDs were applied and secured in place with tape. Patient tolerated the procedure great, and woke up very comfortable. She was transferred up to the medical surgical floor for ongoing treatment with intravenous antibiotics and wound care.
--- NOTE | 2023-11-28 19:20 | W.ANESPOSTOP ---
Postoperative Evaluation Date, Time and Location Date Performed: 11/28/23 Time Performed: 18:45 Patient Location: Med/Surg Vital Signs Most Recent Imported Vital Signs: Most Recent Vital Signs Temp Pulse Resp BP Pulse Ox 36.8 C 96 H 20 104/58 L 90 L 11/28/23 18:44 11/28/23 18:45 11/28/23 18:45 11/28/23 18:45 11/28/23 18:45 Pain Score Most Recent Pain Score: Most Recent Pain Score Pain Level 0 11/28/23 18:45 Assessment Mental Status: Awake (Alert & Oriented to Patient Baseline) Airway and Respiratory Function: Patent airway with normal (patient baseline) respiratory exam Cardiovascular Function: Hemodynamically Stable Hydration Status: Adequately Hydrated Nausea & Vomiting: No Nausea or Vomiting Pain: Pt. Denies Any Pain Peripheral Nerve Block: Patient did not receive a nerve block Postoperative Comments:: Awake and doing well. Recommended continuous Spo2 monitoring and relayed nightly oxygen needs as stated by patient of 3 LPM.
[2023-11-28] MEDS: Budesonide/Formoterol 80/4.5 6.9 GM 60 PUFF INH IH (20:28)
[2023-11-28] MEDS: PIPERACILLIN/TAZO 3.375 GM in Normal Saline 50 ML IVPB (21:16)
[2023-11-28] MEDS: Enoxaparin 40 MG/0.4 ML SYR SC (21:16)
[2023-11-28] MEDS: VANCOMYCIN 1,000 MG in Normal Saline 250 ML 166.667 MG IVPB (22:20)
[2023-11-29] MEDS: PIPERACILLIN/TAZO 3.375 GM in Normal Saline 50 ML IVPB ×4 (01:51→20:33)
[2023-11-29 05:06] VITALS: BP 104/60; PULSE 76; RESP 20; O2SAT 94
[2023-11-29] MEDS: Ibuprofen 800 MG TAB PO ×2 (05:08→20:32)
[2023-11-29] MEDS: VANCOMYCIN 1,000 MG in Normal Saline 250 ML 166.67 MG IVPB (05:17)
[2023-11-29 06:59] LABS: Abs Immature Grans 0.18 10^3/uL (0.0-0.06); Absolute Lymphocyte Count 0.75 10^3/uL (1.2-3.4); Absolute Monocyte Count 1.17 10^3/uL (0.1-0.8); Absolute Neutrophil Count 22.14 10^3/uL (1.2-6.7); Basophils % 0.2 %; HCT 45.5 % (36.0-46.0); HGB 14.7 g/dL (11.2-15.7); Immature Grans % 0.7 %; Lymphocytes % 3.1 %; MCH 27.9 pg (27.0-33.0); MCHC 32.3 % (32.0-36.0); MCV 86 fL (80-95); MPV 10.1 fL (8.0-11.0); Monocytes % 4.8 %; Neutrophils % 91.2 %; Platelet Count 104 10^3/uL (130-400); RBC 5.27 10^6/uL (3.93-5.22); RDW 13.7 % (11.7-14.6); WBC 24.28 10^3/uL (4.4-10.8)
[2023-11-29 07:10] LABS: Absolute Basophil Count 0.05 10^3/uL (0.0-0.2)
[2023-11-29 07:31] LABS: Diff Comment Diff Reviewed
[2023-11-29 07:32] LABS: RBC Morphology Normal
[2023-11-29 08:12] VITALS: BP 113/84; PULSE 72; RESP 20; TEMP 36.2; O2SAT 97
[2023-11-29] MEDS: Budesonide/Formoterol 80/4.5 6.9 GM 60 PUFF INH IH ×2 (08:26→20:37)
[2023-11-29] MEDS: Tiotropium Bromide-Respimat 10 PUFF INH 2 PUFF IH (08:26)
[2023-11-29] MEDS: Normal Saline Flush 10 ML SYR IVP ×3 (09:15→20:37)
--- NOTE | 2023-11-29 09:57 | PDOC.CMIN ---
Date of service: 11/29/23 Time of Service: 09:59 Care Management Initial Assmt Initial Assessment Reason for Hospitalization: Necrotizing soft tissue infection Functional Status/Living Situation Patient Presentation: Fadia, who likes to be called Holly, was sitting up in bed when CM met with her. She was on the phone with her daughter, Lore, who lives in [place]. She stated that she lives with her daughter, Agustina, and her grandchildren. She reported that she is very independent at baseline, and is looking forward to returning home. CM discussed HH services, as she will likely require regular dressing changes. Holly stated that per MD, she will likely be inpatient for two more days, for IV antibiotics. Holly expressed concern about an interaction she had with MD, where she felt that the provider was not conscious of her pain level during the bedside dressing change; she stated that she was hoping for the area to be numbed before the dressing change. CM discussed this with the clinical coordinator/RN, who stated that she was pre medicated for the dressing change, and that even with the medication, the dressing changes will likely have some pain associated with them, during the healing process. SUGEY requested that her RN provide education surrounding expectations for dressing changes. CM will continue to follow. Town of Residence: [place] Resides with: Child (daughter, Agustina, and grandchildren) Natural Supports: daughters, Agustina ([facility]) and Lore ([place]) Instrumental Activities of Daily Living (ADLs): Independent Medications Medication Management: No Issues/Barriers identified Advance Directives Advance Directives: Do you have an Advance Directive: N 04/16/15 10:04 AD On File at [facility]: N 04/16/15 10:04 Date Asked 11/28/23 11/28/23 11:10 AD Date Reviewed COLST On File at [facility] No 11/28/23 11:44 COLST Date Scanned Code Status Resuscitation Status Full Code Insurance Coverage/Financial Issues Insurance: [facility] Care Team Visit Care Team Role Provider Type [facility] Primary Care Provider NURSE PRACTITIONER Caryn Drake RDN, [facility] Other Providers BILINGUAL SPEECH THERAPIST Ita Machado Other Providers BILINGUAL SPEECH THERAPIST Paul Gaines RDN Other Providers BILINGUAL SPEECH THERAPIST Chris Quevedo MD Emergency Provider [facility] STAFF PHYSICIAN Dar Springer MD Admit Provider [facility] STAFF PHYSICIAN Attending Provider Discharge Potential Discharge Needs: Consult Consult Services Needed: Nutrition (diabetic education) and PCP F/U Appt Anticipated Barriers to Discharge: Medical Status Patient/Family Education Needs: Review discharge instructions, discuss Ask Me Three Transportation: Private vehicle Plan: Fadia went to the OR yesterday for incision and drainage of the left thigh abscess. Her antibiotic course is not yet determined, which will impact her discharge plan. Anticipate Fadia will return home once medically cleared, and will transport via private vehicle by family. She will follow up with her PCP and discharge plan of care. CM will continue to follow. PFSH All Active Problems (Updated 11/28/23 @ 16:59 by Dar Springer MD) Necrotizing soft tissue infection (Acute) Thrombocytopenia (Chronic) Venous stasis dermatitis (Acute) Internal hemorrhoids (Acute) Tension headache (Acute) Pulmonary nodule (Acute) Leg cramping (Acute) Nail dystrophy (Acute) PVD (peripheral vascular disease) (Chronic) Personal history of nicotine dependence (Acute) Respiratory failure with hypoxia (Acute) COPD, frequent exacerbations (Acute) Stasis dermatitis of both legs (Acute) Venous insufficiency (Acute) On prednisone therapy (Acute) Edema (Acute) Ex-cigarette smoker (Acute) Peripheral edema (Acute) TEENA (obstructive sleep apnea) (Chronic) Morbid obesity (Acute) COPD (chronic obstructive pulmonary disease) (Acute) Followed by team leader/research psychologist Medical History Tubular adenoma of colon Polycythemia 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 Patient was referred to urology at [facility] for assessment and treatment Tobacco use 01/2019 patient reports 2 cigarettes/day Surgical History Fistula, anal Repaired with 2003 H/O tubal ligation 1986 Family History Father , age 59 Cancer brain cancer. Mother , age 63 Cancer Lung cancer. COPD (chronic obstructive pulmonary disease) Sister Hypertension Brother Hypertension Heart disease Heart failure, heart disease. Social History Smoking/Tobacco Use Status: Former Tobacco Use Quit Date: 04/13/20 Pack-years: 40 Smoking risk assessment performed?: Yes Alcohol Intake: never Drug use: Never Substance use type: does not use Housing: house Pets and animals: Yes (5 cats, 1 dog) Pets and animals: cat(s) and dog(s) Current gender identity: female Do you feel safe at home: Yes Do you feel safe in your relationship?: Yes History History 4 Para Hx # Term Pregnancies 2 Multiple births Hx # Pregnancies Ectopic pregnancies AB induced Hx Number of Living Children AB spontaneous SDOH(Care Management) Screening Will the Patient Participate in the Screening?: Declined to provide Do you worry about having a steady place to live?: no Problems where you live: no known problems In the past 12 months, have you had to go without electric, gas, oil or water in your home?: no Have you or anyone in your house had to go without enough food to eat?: no Has lack of transportation kept you from medical appointments or from doing things needed for daily living?: no Has anyone in your support network made you feel unsafe for any reason?: no
[2023-11-29] MEDS: Enoxaparin 40 MG/0.4 ML SYR SC ×2 (10:17→23:30)
[2023-11-29] MEDS: HYDROmorphone 2 MG/ML SYR 0.5 MG IVP ×2 (11:52→23:15)
--- NOTE | 2023-11-29 12:38 | NUR.NOTE ---
Nursing Note: Pt wanted to know what her hospital diet consisted of. Nursing staff notified pt that she is currently on a diabetic diet. Pt stated she does not understand and is not happy about the diet. Pt stated that she does not manage bs at home. Pt stated that will will still be drinking coffee with sugar when her daughter brings it.
--- NOTE | 2023-11-29 14:04 | W.INDIABCONS ---
Date of service: 11/29/23 Time of Service: 14:04 Diabetes Inpatient Consult Reason for Visit: Diabetes consult DESCRIPTION/ASSESSMENT: Acknowledge request for diabetes consult. Ms. Galeana does not have a previous diagnosis of diabetes. Her A1C is 5.8 in August consistent with prediabetes. Blood sugars here in the hospital are at target. She is 66 and 317 lbs which is a BMI of 54.6 kg/m2 c/w severe class 3 obesity. Ms. Galeana was not available when I went to visit with her. INTERVENTION: Did not initiate any nutrition or diabetes intervention at this time. PLAN: RD will follow up with Ms. Galeana prior to d/c to see if she is interested in meeting for nutritional counseling for prediabetes and weight management as an outpatient. Time Spent in Nutritional Counseling and Treatment: 0
[2023-11-29] MEDS: VANCOMYCIN/WATER (PEG) 1 GM/200 ML BAG IV ×2 (14:39→23:31)
[2023-11-29 16:19] VITALS: BP 105/61; PULSE 82; RESP 15; TEMP 35.6; O2SAT 92
[2023-11-29 17:15] VITALS: RESP 18
[2023-11-29 19:38] VITALS: BP 116/80; PULSE 80; RESP 18; TEMP 36.6; O2SAT 92
[2023-11-29] MEDS: Albuterol/Ipratropium 3 ML UPD VIAL IH (20:32)
--- NOTE | 2023-11-29 20:57 | W.PM.PROGNOT ---
Date of Service Date of service: 11/29/23 Time of Service: 12:15 Assessment and Plan Assessment and plan (1) Stasis dermatitis of both legs: Status: Acute (2) PVD (peripheral vascular disease): Status: Chronic (3) On prednisone therapy: Status: Acute (4) Morbid obesity: Status: Acute (5) Necrotizing soft tissue infection: Status: Acute Assessment and plan: - Final results on cultures are pending Zosyn and Vanco Pulmonary toilet and DVT prophylaxis Patient has a longstanding history of steroid-dependent COPD with frequent exacerbations. She is on chronic prednisone and chronic Zithromax for her CAD OPD. She is at high risk for hospital-acquired pneumonia given her BMI/TEENA/steroid-dependent disease. Local wound care Physical therapy She will need home care to aid with dressing change and follow her progress. I did discuss this with care management. However I anticipate her being here through the weekend. Pain management Hospitalist were consulted for medical therapy Patient says she is not diabetic but she is on metformin and her A1c's are running about 5.8 This document was created with voice activated software and may contain errors. 30 mins spent in direct pt care and 30 in non face to face time (6) COPD (chronic obstructive pulmonary disease): Status: Acute Qualifiers: COPD type: emphysema Emphysema type: unspecified Qualified Code(s): J43.9 - Emphysema, unspecified (7) TEENA (obstructive sleep apnea): Status: Chronic (8) Peripheral edema: Status: Acute (9) Ex-cigarette smoker: Status: Acute Subjective Subjective Interval history since last seen: Pt is doing well. no headaches. No CP or SOB. no productive cough. no dysuria. no leg pain or swelling. She still having significant pain but it is improved since yesterday. Patient is doing better today than yesterday. She has not been up walking. I did review labs/cultures/CT. MR SA screening was negative. Antibiotics are Zosyn and vancomycin Exam Const Other: She has not been running a temperature. She has not had a bowel movement. Lungs show mild wheezes at bases Her incision shows periwound edema and erythema and tenderness. There is no purulent drainage. Packing is removed and the wound is irrigated. There is no crepitus. Packing is replaced. Patient tolerated the procedure. Objective Last Vital Signs Temp 36.6 C 11/29/23 19:38 Pulse 80 11/29/23 19:38 Resp 18 11/29/23 19:38 BP 116/80 11/29/23 19:38 Pulse Ox 92 11/29/23 19:38 Laboratory Results - last 24 hr 11/29/23 11/29/23 06:26 11:40 WBC 24.28 H RBC 5.27 H Hgb 14.7 Hct 45.5 MCV 86 MCH 27.9 MCHC 32.3 RDW 13.7 Plt Count 104 L MPV 10.1 Immature Gran % 0.7 Neutrophils % 91.2 Lymphocytes % 3.1 Monocytes % 4.8 Eosinophils % 0.0 Basophils % 0.2 Nucleated RBC % 0.0 Absolute Neutrophils 22.14 H Absolute Lymphocytes 0.75 L Absolute Monocytes 1.17 H Absolute Eosinophils 0.00 Absolute Basophils 0.05 RBC Morphology Normal Random Vancomycin 17.0 Time Spent with Patient Time Spent with Patient: >50 minutes Time was spent: preparing to see the patient(eg.review tests), obtaining and/or reviewing separately otained hiistory, ordering medications,tests, procedures, referring, communicating with other health career discovery teacher, indepentently interpreting results, counseling the patient, care coordination and other
[2023-11-29] MEDS: Acetaminophen 500 MG TAB 1000 MG PO (23:31)
[2023-11-30] MEDS: PIPERACILLIN/TAZO 3.375 GM in Normal Saline 50 ML IVPB ×4 (03:22→19:29)
[2023-11-30 03:28] VITALS: BP 115/61; PULSE 66; RESP 16; TEMP 35.8; O2SAT 92
[2023-11-30] MEDS: Acetaminophen 500 MG TAB 1000 MG PO ×2 (05:51→16:59)
[2023-11-30] MEDS: VANCOMYCIN/WATER (PEG) 1 GM/200 ML BAG IV ×3 (05:53→21:17)
[2023-11-30 06:52] LABS: Abs Immature Grans 0.14 10^3/uL (0.0-0.06); Absolute Basophil Count 0.04 10^3/uL (0.0-0.2); Absolute Eosinophil Count 0.02 10^3/uL (0.0-0.7); Absolute Lymphocyte Count 1.14 10^3/uL (1.2-3.4); Absolute Monocyte Count 1.14 10^3/uL (0.1-0.8); Absolute Neutrophil Count 16.88 10^3/uL (1.2-6.7); Basophils % 0.2 %; Eosinophils % 0.1 %; HCT 44.5 % (36.0-46.0); HGB 14.4 g/dL (11.2-15.7); Immature Grans % 0.7 %; Lymphocytes % 5.9 %; MCH 27.8 pg (27.0-33.0); MCHC 32.4 % (32.0-36.0); MCV 86 fL (80-95); MPV 10.3 fL (8.0-11.0); Monocytes % 5.9 %; Neutrophils % 87.2 %; Platelet Count 128 10^3/uL (130-400); RBC 5.18 10^6/uL (3.93-5.22); RDW 13.6 % (11.7-14.6); RDW-SD 42.9 fL; WBC 19.36 10^3/uL (4.4-10.8)
[2023-11-30 07:07] LABS: C-Reactive Protein 19.71 mg/dL (<or=0.5)
[2023-11-30 07:13] VITALS: BP 108/70; PULSE 66; RESP 16; TEMP 35.9; O2SAT 96
[2023-11-30] MEDS: Budesonide/Formoterol 80/4.5 6.9 GM 60 PUFF INH IH ×2 (08:11→19:30)
[2023-11-30] MEDS: Tiotropium Bromide-Respimat 10 PUFF INH 2 PUFF IH (08:11)
[2023-11-30] MEDS: Normal Saline Flush 10 ML SYR IVP ×4 (09:20→19:29)
[2023-11-30] MEDS: Ibuprofen 800 MG TAB PO ×2 (09:21→21:16)
--- NOTE | 2023-11-30 09:21 | W.PM.PROGNOT ---
Date of Service Date of service: 11/30/23 Time of Service: 09:21 Assessment and Plan Assessment and plan (1) Venous insufficiency: Status: Acute (2) Stasis dermatitis of both legs: Status: Acute (3) PVD (peripheral vascular disease): Status: Chronic (4) On prednisone therapy: Status: Acute (5) Morbid obesity: Status: Acute (6) Necrotizing soft tissue infection: Status: Acute (7) Abscess of right thigh: Status: Acute (8) TEENA (obstructive sleep apnea): Status: Chronic (9) Peripheral edema: Status: Acute (10) COPD (chronic obstructive pulmonary disease): Status: Acute Qualifiers: COPD type: emphysema Emphysema type: unspecified Qualified Code(s): J43.9 - Emphysema, unspecified (11) Ex-cigarette smoker: Status: Acute (12) Infectious fasciitis: Status: Acute Assessment and plan: Postop day 3 from necrotizing fasciitis. The patient is doing well. Her white count and CRP are finally trending down today. Clinically she is doing good . No fever or chills. No nausea or vomiting. No diarrhea. Cultures show mixed staph and strep with no BOSSMAN done and heavy burden of anaerobes. She is on Vanco and Zosyn for antibiotics. We will continue double coverage because of the severity of infection. We will plan discharge on Sunday. She will need home health for education and supplies and daily packing/dressing changes she can go home on oral antibiotics there is no bloodstream infection She can come off isolation precautions. I do want her walking the hallways. Physical therapy is consulted for her. She is on metformin. But patient states she is not diabetic. We will resume metformin. Her fingersticks have all been within normal limits. Continue supportive care. Plan to discharge on Sunday Subjective Subjective Interval history since last seen: Pt is doing well. no headaches. No CP or SOB. no productive cough. no dysuria. decreased swelling Blood sugars have been well-controlled. I did review her lab and culture results. I did discuss the cultures with patient. She does have quite extensive infection. Given the severity of her infection I do think she should stay the weekend on IV antibiotics and plan discharge for Sunday. Patient does have people at home that can help her do dressing changes. I would still recommend that she get home health for initial assessment and teaching with No thrush or diarrhea. She tolerated dressing changes better today. Exam Const Other: Lungs are clear to auscultation Abdomen is soft and nontender Dressing change was done by nurses. Wound edges reveal significant decrease in swelling and periwound erythema. Objective Last Vital Signs Temp 35.9 C L 11/30/23 07:13 Pulse 66 11/30/23 07:13 Resp 16 11/30/23 07:13 BP 108/70 11/30/23 07:13 Pulse Ox 96 11/30/23 07:13 Laboratory Results - last 24 hr 11/29/23 11/30/23 11:40 06:26 WBC 19.36 H RBC 5.18 Hgb 14.4 Hct 44.5 MCV 86 MCH 27.8 MCHC 32.4 RDW 13.6 Plt Count 128 L MPV 10.3 Immature Gran % 0.7 Neutrophils % 87.2 Lymphocytes % 5.9 Monocytes % 5.9 Eosinophils % 0.1 Basophils % 0.2 Nucleated RBC % 0.0 Absolute Neutrophils 16.88 H Absolute Lymphocytes 1.14 L Absolute Monocytes 1.14 H Absolute Eosinophils 0.02 Absolute Basophils 0.04 C-Reactive Protein 19.71 H Random Vancomycin 17.0 Time Spent with Patient Time Spent with Patient: 25-34 minutes Time was spent: preparing to see the patient(eg.review tests), obtaining and/or reviewing separately otained hiistory, ordering medications,tests, procedures, referring, communicating with other health acute care nursing assistant, indepentently interpreting results, counseling the patient, care coordination and other
[2023-11-30] MEDS: Enoxaparin 40 MG/0.4 ML SYR SC ×2 (09:22→21:16)
--- NOTE | 2023-11-30 11:35 | PT.INIE ---
PT Notes Visit Reasons: Necrotizing soft tissue infection Inpatient Physical Therapy Evaluation Date: 11/30/23 Referring Doctor: Dr. Abbie Brown PT Orders: PT CONSULT: safety consultation Precautions: contact Patient Profile/Admitting Diagnosis: Patient admitted for medical management of necrotizing soft tissue infection of the left thigh, and is 2 days s/p incision and drainage. Social History/Home Situation: Holly lives with her daughter and grandchildren. Has 3STE, however can enter through back entrance with no stairs. Typically ambulates independently without device. Equipment Owned/DME: none Subjective: Holly states that she's been walking around her room on her own this morning. States that she's at baseline, except for discomfort from her bandage. Agreeable to PT consult, but states that she doesn't feel she needs PT. Objective: General Observation: Sitting in chair. IV in RUE. Bandage to medial left thigh. Mental Status: A&Ox3. Pain: left thigh, only during stand-sit transfers ROM: Right Upper Extremity: WFL Left Upper Extremity: WFL Right Lower Extremity: WFL Left Lower Extremity: WFL Strength: Right Upper Extremity: Shoulder flexion 3/5 or greater. Biceps 3/5 or greater. Triceps 3+/5 or greater. Left Upper Extremity: : Shoulder flexion 3/5 or greater. Biceps 3/5 or greater. Triceps 3+/5 or greater. Right Lower Extremity: Hip flexion 5/5. Quads 5/5. Ankle DF 5/5. Left Lower Extremity: Hip flexion 3/5. Quads 5/5. Ankle DF 5/5. Bed Mobility/Transfers: sit-stand: independent stand-sit: independent Gait: Ambulates 40' independently, managing IV pole independently. Able to navigate around obstacles without difficulty. Balance: Static Sitting: Normal Dynamic Sitting: Normal Static Standing: Normal Dynamic Standing: Good 4-Position Balance Test: 2/4 Small DOROTHY: 10 seconds Partial Tandem: 10 seconds Full Tandem: 8 seconds Single Leg Stance: 0 seconds Special Tests: Mobility Limitations Standardized Measure [facility] AM-PAC 6 clicks Basic Mobility Inpatient Short Form: Raw Score: 24 CMS Score: 0 % impairment Informed Consent/Education: Patient instructed in purpose of PT consult and plan of care. Assessment: Patient is a 63 year old female in acute care setting, with PT consult ordered for safety consultation. Patient presents with mobility at her baseline, and is able to ambulate independently about the room. She is safe for transition back home without additional services once medically ready. No further PT intervention required in acute care setting. She currently demonstrates the following impairment level findings: 1. LLE pain related to infection and recent drainage 2. minor balance impairment Impairments are contributing to the following functional limitations: Patient at baseline level of function Patient is assessed as Low 63467 [] Moderate 17746 [] High 82855 complexity based on the following: History: As above Examination: no significant functional limitations Presentation: stable Decision Making: low Plan of Care/Treatment Plan: D/C from PT services DISCHARGE RECOMMENDATIONS: Home with no services TREATMENT CODE/TIME: 61539 ([id number]) Keiko Lees, PT, DPT [facility] Please sign an return this page within 30 days if you agree with the above POC. Thank you! Physician Signature Date [facility] All Active Problems (Updated 11/30/23 @ 09:03 by Chris Quevedo MD) Sepsis (Acute) Abscess of right thigh (Acute) Necrotizing soft tissue infection (Acute) Necrotizing soft tissue infection (Acute) Thrombocytopenia (Chronic) Venous stasis dermatitis (Acute) Internal hemorrhoids (Acute) Tension headache (Acute) Pulmonary nodule (Acute) Leg cramping (Acute) Nail dystrophy (Acute) PVD (peripheral vascular disease) (Chronic) Respiratory failure with hypoxia (Acute) COPD, frequent exacerbations (Acute) Stasis dermatitis of both legs (Acute) Venous insufficiency (Acute) On prednisone therapy (Acute) Edema (Acute) Ex-cigarette smoker (Acute) Peripheral edema (Acute) TEENA (obstructive sleep apnea) (Chronic) Morbid obesity (Acute) COPD (chronic obstructive pulmonary disease) (Acute) Followed by [facility] Medical History Personal history of nicotine dependence Tubular adenoma of colon Polycythemia 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 Patient was referred to urology at [facility] for assessment and treatment Tobacco use 01/2019 patient reports 2 cigarettes/day Surgical History Fistula, anal Repaired with 2003 H/O tubal ligation 1987
[2023-11-30 14:04] LABS: Vancomycin, Trough 20.1 ug/mL (10.0-20.0)
[2023-11-30 14:06] VITALS: O2SAT 95
--- NOTE | 2023-11-30 14:14 | PHA.REVIEW2 ---
Pharmacy Admission Review Admission Clinical Review Admission Pharmacy Review: Sepsis (Acute) Necrotizing soft tissue infection (Acute) Stasis dermatitis of both legs (Acute) On prednisone therapy (Acute) Ex-cigarette smoker (Acute) Peripheral edema (Acute) Morbid obesity (Acute) COPD (chronic obstructive pulmonary disease) (Acute) seasonal Allergy (Uncoded 11/28/23 11:03) Other (See Comment) roflumilast Adverse Reaction (Intermediate, Uncoded 11/28/23 11:03) Nausea Resuscitation Status Full Code Height 5 ft 4 in Weight 144.242 kg Pharmacy Admission Review Renal Dosing Renal Dosing: BUN 21 mg/dL (7-18) H 11/28/23 11:40 Creatinine 0.9 mg/dL (0.55-1.02) 11/28/23 11:40 Medications needing adjustments: Reviewed (CrCl 84.42 mL/min) List of meds needing interventions: Current medications are okay Anticoagulation Anticoagulation: Hgb 14.4 g/dL (11.2-15.7) 11/30/23 06:26 Hct 44.5 % (36.0-46.0) 11/30/23 06:26 Plt Count 128 10^3/uL (130-400) L 11/30/23 06:26 Creatinine 0.9 mg/dL (0.55-1.02) 11/28/23 11:40 DVT Prophylaxis: Reviewed Medications: Enoxaparin (40mg q12h due to BMI > 40) Opiate Usage Evaluate Pain Scale/Pains Meds: Reviewed (PRN hydromorphone - 3 doses given) Scheduled Bowel Reg ordered if on Opiates?: No (PRN Miralax) Relevant Labs Relevant Labs: Sodium 136 mmol/L (136-145) 11/28/23 11:40 Potassium 3.5 mmol/L (3.5-5.1) 11/28/23 11:40 Chloride 101 mmol/L (98-107) 11/28/23 11:40 C-Reactive Protein 19.71 mg/dL (<or=0.5) H 11/30/23 06:26 Electrolytes, C-Reactive P, ESR: Reviewed (No new labs for today) Cardiac Review BP, HR, EF%: Reviewed (BP and HR WNL) QTc Review QTc: Reviewed (436 from 09/06/21 - most recent EKG on file) IV to PO Switch IV Medications: Reviewed (hydromorphone, ondansetron, Zosyn and vancomycin) Home Meds Home Med List reviewed: Reviewed Relevent Home Meds Not ordered & why?: azithromycin and metformin (per progress note patient says she is not diabetic but takes metformin at home??, A1c ~5.8) Current Meds Current Medication Order Review: Reviewed Pharmacy Antibiotic Review Relevant Labs: Relevant Labs 11/30/23 06:26 C-Reactive Protein 19.71 H WBC 19.36 10^3/uL (4.4-10.8) H 11/30/23 06:26 Procalcitonin 0.2 ng/mL 11/28/23 11:40 Temperature 35.9 C Temperature 35.8 C Microbiology 11/28/23 11:53 Blood Culture - Preliminary Blood NO GROWTH 48 HOURS 11/28/23 11:40 Blood Culture - Preliminary Blood NO GROWTH 48 HOURS 11/28/23 18:05 Surgical Culture - Preliminary Groin - Left Gram Stain - No growth at 48 hours Pharmacy Antibiotic Activity: C/S review and Reviewed, no change Comments: Patient is on Zosyn and vancomycin day 2 for necrotizing soft tissue infection. Vancomycin trough was 20.1 at 1300 today, continue dose of 1000mg q8h with predicted AUC of 586 and trough of 20.2, will repeat level on Sunday morning to make sure trough is not any higher. WBC decreased from 24.28.
[2023-11-30] MEDS: HYDROmorphone 2 MG/ML SYR 1 MG IVP (14:37)
--- NOTE | 2023-11-30 14:41 | PDOC.HHF2F ---
Home Health Referral Home Health Orders Clinical synopsis of why skilled professionals are needed: large infected thigh wound/abscess/cellulitis/fascitis Medical diagnosis necessitation home health referral: monitor wound healing/infection status/daily wound packing Registered Nurse: Check all that apply Instruct on new or changed medication(s)/assess compliance: Ordered Assess for exacerbation of medical condition, instruct patient/caregivers on signs and symptoms to report for early detection: Ordered Assess wound for signs and symptoms of infection, instruct on wound care and/or provide skilled wound care consisting of: daily packing/dressing change left thigh abscess Home Bound Status Requires the aid of supportive device (check all that apply): Cane Patient has a condition such that leaving home is medically contraindicated (Describe): cannot drive Describe why leaving home would require a considerable and taxing effort: Side effects from pain medication (sedation/drowsiness), Requires frequent rest periods and Safety Concerns: describe Encounter Date and Reason: I certify that a FTF encounter for this patient was performed on November 30, 2023 and that such encounter was related to the primary reason the patient requires home health services. The encounter was conducted in the following manner: By me as the certifying physician, PARTS FACILITATOR, PA or By an inpatient physician, PARTS FACILITATOR or PA during an inpatient stay who communicated findings to me, Certification And Authentication I certify that I composed the above information based on my clinical judgment relating to this patient's medical condition and, if applicable, clinical findings communicated to me by the NPP or inpatient physician who performed the FTF encounter. Name of Provider that will be monitoring home health services: Abbie Brown
--- NOTE | 2023-11-30 14:46 | PDOC.CMPRO ---
Date of service: 11/30/23 Time of Service: 14:46 Care Management Progress Note Progress Note Text Progress Note Text: Holly was sitting up in bed when CM met with her. She stated that she had been insistent on returning home tomorrow, but informed her that she should remain over the weekend to determine her most appropriate antibiotic course. After talking with her daughters, she has decided to stay. She stated that her RN did her dressing change today and it was much better, and less painful. CM will continue to follow. Discharge Potential Discharge Needs: PCP F/U Appt Anticipated Barriers to Discharge: None Identified Patient/Family Education Needs: Review discharge instructions, discuss Ask Me Three Transportation: Private vehicle Plan: Anticipate Holly will return home with new HH RN for dressing changes. Her daughter will drive her home via private vehicle. She will follow up with her PCP and discharge plan of care. CM will continue to follow. SDOH(Care Management) Screening Will the Patient Participate in the Screening?: Declined to provide Do you worry about having a steady place to live?: no Problems where you live: no known problems In the past 12 months, have you had to go without electric, gas, oil or water in your home?: no Have you or anyone in your house had to go without enough food to eat?: no Has lack of transportation kept you from medical appointments or from doing things needed for daily living?: no Has anyone in your support network made you feel unsafe for any reason?: no
[2023-11-30 15:07] VITALS: BP 106/59; PULSE 80; RESP 18; TEMP 36.3; O2SAT 92
--- NOTE | 2023-11-30 15:38 | CHAPLAIN ---
Fadia was in bed when I visited. She said right away that she's hoping to go home soon, but hasn't seen the hospitalist yet today. She said there isn't anything happening here that she couldn't do at home, although she did say she is receiving IV antibiotics. Fadia lives at home in [facility]. I explained my role and offered support.
[2023-11-30 19:18] VITALS: BP 105/75; PULSE 90; RESP 18; TEMP 36.6; O2SAT 92
[2023-11-30 22:51] VITALS: BP 107/60; PULSE 85; RESP 18; TEMP 37.1; O2SAT 93
[2023-12-01] MEDS: PIPERACILLIN/TAZO 3.375 GM in Normal Saline 50 ML IVPB ×4 (01:20→21:38)
[2023-12-01 03:27] VITALS: BP 116/66; PULSE 81; RESP 18; TEMP 37.1; O2SAT 95
[2023-12-01] MEDS: VANCOMYCIN/WATER (PEG) 1 GM/200 ML BAG IV ×3 (06:05→22:56)
[2023-12-01] MEDS: Acetaminophen 500 MG TAB 1000 MG PO ×3 (06:06→21:37)
[2023-12-01] MEDS: HYDROmorphone 2 MG/ML SYR 1 MG IVP (06:11)
[2023-12-01 06:50] LABS: Abs Immature Grans 0.12 10^3/uL (0.0-0.06); Absolute Basophil Count 0.05 10^3/uL (0.0-0.2); Absolute Eosinophil Count 0.03 10^3/uL (0.0-0.7); Absolute Lymphocyte Count 1.32 10^3/uL (1.2-3.4); Basophils % 0.4 %; Eosinophils % 0.2 %; HCT 42.8 % (36.0-46.0); HGB 13.6 g/dL (11.2-15.7); Immature Grans % 0.9 %; Lymphocytes % 9.7 %; MCH 27.6 pg (27.0-33.0); MCHC 31.8 % (32.0-36.0); MCV 87 fL (80-95); MPV 9.6 fL (8.0-11.0); Monocytes % 7.3 %; Neutrophils % 81.5 %; Platelet Count 126 10^3/uL (130-400); RBC 4.93 10^6/uL (3.93-5.22); RDW 13.8 % (11.7-14.6); WBC 13.65 10^3/uL (4.4-10.8)
[2023-12-01 06:59] LABS: Absolute Neutrophil Count 11.12 10^3/uL (1.2-6.7)
[2023-12-01 07:12] LABS: C-Reactive Protein 15.67 mg/dL (<or=0.5)
--- NOTE | 2023-12-01 07:24 | W.PC.ACHO ---
Registration Status: Primary Language: Preferred Language: ED Information & Data Chief Complaint Cellulitis 11/28/23 11:30 Triage Note Per [facility] abscess 11/28/23 11:00 left thigh - odorous, red, 10/10 pain. patient reports hard to walk Subjective 3 days ago the boil popped. 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) Hypoxia Pneumonia URI (upper respiratory infection) Onychomycosis History of shingles Varicose veins of both lower extremities Depression Thrombocythemia Urinary incontinence Tobacco use (Last Reviewed 11/28/23 @ 16:55 by Dar Springer MD) Fistula, anal H/O tubal ligation Most Recent Vital Signs Temperature 37.1 C 12/01/23 03:27 Temperature Source Tympanic 12/01/23 03:27 Pulse 81 12/01/23 03:27 Pulse Rhythm Regular 11/30/23 20:38 Respiratory Rate 18 12/01/23 03:27 Respiratory Effort Normal, Non-Labored 11/30/23 20:38 Respiratory Depth Normal 11/30/23 20:38 Respiratory Pattern Normal 11/30/23 20:38 Blood Pressure 116/66 12/01/23 03:27 Blood Pressure Mean 64 11/28/23 17:31 Blood Pressure Position Sitting 11/28/23 11:16 Pulse Oximetry 95 12/01/23 03:27 Oxygen Delivery Method Nasal Cannula 12/01/23 03:27 Oxygen Flow Rate 3 12/01/23 03:27 Pain Level 0 11/30/23 07:13 Comment Oxygen down to 84% when up to BR; titrated up to 3L (patient baseline at night). 11/28/23 21:11 Allergies seasonal Allergy (Uncoded 11/28/23 11:03) Other (See Comment) roflumilast Adverse Reaction (Intermediate, Uncoded 11/28/23 11:03) Nausea Precautions Isolation Standard precaution 11/28/23 11:16 Active Medications Generic Name Dose Route Start Last Admin Trade Name Freq PRN Reason Stop Dose Admin Acetaminophen 1,000 mg 12/01/23 06:00 12/01/23 06:06 Acetaminophen 500 Mg Tab PO 1,000 mg Q8H TRACY Administration Albuterol/Ipratropium 3 ml 07/17/24 17:58 11/29/23 20:32 Albuterol/Ipratropium 3 Ml Upd Vial IH 3 ml QID PRN PRN Administration shortness of breath Budesonide/Formoterol Fumarate 0 puff 11/28/23 20:00 11/30/23 19:30 Budesonide/Formoterol 80/4.5 6.9 Gm 60 Puff Inh IH 2 puffs BID TRACY Administration Enoxaparin Sodium 40 mg 11/28/23 22:00 11/30/23 21:16 Enoxaparin 40 Mg/0.4 Ml Syr SC 40 mg Q12H TRACY Administration Hydromorphone HCl 0.5 mg 11/28/23 18:23 11/29/23 23:15 Hydromorphone 2 Mg/Ml Syr IVP 0.5 mg Q4H PRN PRN Administration Hydromorphone HCl 1 mg 11/30/23 09:55 12/01/23 06:11 Hydromorphone 2 Mg/Ml Syr IVP 1 mg DIRECTED TRACY Administration Piperacillin Sod/Tazobactam 50 mls @ 100 mls/hr 11/28/23 20:00 12/01/23 01:51 Sod 3.375 gm/ Sodium Chloride IVPB Infused Q6H TRACY Infusion Vancomycin/PEG/NADA/Lysine/Water 1 gm in 200 mls @ 133.333 mls/hr 11/29/23 14:00 12/01/23 06:05 Vancocin Injection IV 133.333 mls/hr Q8H TRAYC Administration Ibuprofen 800 mg 11/29/23 21:00 11/30/23 21:16 Ibuprofen 800 Mg Tab PO 800 mg Q12H TRACY Administration Sodium Chloride 0 ml 11/29/23 14:11 11/30/23 14:37 Normal Saline Flush 10 Ml Syr IVP 20 ml PRN PRN Administration Sodium Chloride 0 ml 11/29/23 20:00 11/30/23 19:29 Normal Saline Flush 10 Ml Syr IVP 10 ml BID TRACY Administration Tiotropium [place] 2 puff 11/29/23 08:30 11/30/23 08:11 Tiotropium [place]-Respimat 10 Puff Inh IH 2 inh DAILY TRACY Administration IV IV Catheter Type [Left Forearm Saline Lock ] IV Catheter Type [Right Saline Lock Antecubital] IV Catheter Gauge [Left 20 Forearm] IV Catheter Gauge [Right 18 Antecubital] Diagnostics 12/01/23 11/30/23 Range/Units 06:40 13:00 WBC 13.65 H (4.4-10.8) 10^3/uL RBC 4.93 (3.93-5.22) 10^6/uL Hgb 13.6 (11.2-15.7) g/dL Hct 42.8 (36.0-46.0) % MCV 87 (80-95) fL MCH 27.6 (27.0-33.0) pg MCHC 31.8 L (32.0-36.0) % RDW 13.8 (11.7-14.6) % Plt Count 126 L (130-400) 10^3/uL MPV 9.6 (8.0-11.0) fL Immature Gran % 0.9 % Neutrophils % 81.5 % Lymphocytes % 9.7 % Monocytes % 7.3 % Eosinophils % 0.2 % Basophils % 0.4 % Nucleated RBC % 0.0 (0.0-0.3) % Absolute Neutrophils 11.12 H (1.2-6.7) 10^3/uL Absolute Lymphocytes 1.32 (1.2-3.4) 10^3/uL Absolute Monocytes 1.00 H (0.1-0.8) 10^3/uL Absolute Eosinophils 0.03 (0.0-0.7) 10^3/uL Absolute Basophils 0.05 (0.0-0.2) 10^3/uL C-Reactive Protein 15.67 H (<or=0.5) mg/dL Vancomycin Trough 20.1 H (10.0-20.0) ug/mL 11/28/23 18:05 Anaerobic Culture - Preliminary Groin - Left Anaerobic mixed growth 11/28/23 11:53 Blood Culture - Preliminary Blood NO GROWTH 48 HOURS 11/28/23 11:40 Blood Culture - Preliminary Blood NO GROWTH 48 HOURS 11/28/23 18:05 Surgical Culture - Preliminary Groin - Left Gram Stain - Final [id number] Documentation Fingerstick Glucose Start: 11/28/23 18:23 Freq: .AC Status: Complete Protocol: Activity Type Activity Date Activity User E-sign Co-sign Detail Recorded Client Recorded Date Recorded By Document 11/29/23 11:45 BKG DAEMON(3) [id number] 11/29/23 11:47 BKG DAEMON(4) Intake and Output - 24 Hour Total 11/28/23 10:57 thru 12/01/23 06:49 Intake Total 5130.8 Output Total 2850 Balance 2280.8 Weight 144.242 kg Intake: IV 4530.8 Oral 600 Output: Urine 2850 Other: Urine Color Yellow Urine Appearance Sediment Urine Odor Strong Comment missed hat Voiding Methods Toilet Falls Risk Assessment History of Falls No History 11/28/23 18:44 Contributing Factors No Factors 11/28/23 18:44 Ambulatory Aids Independent 11/28/23 18:44 Tubes/Lines W/no contributing factors 11/28/23 18:44 Gait Evaluation No gait disturbance 11/28/23 11:16 Cognition No cognitive impairment 11/28/23 18:44 Fall Total Score 10 11/28/23 18:44 Level of Risk Standard/Low Risk 11/28/23 18:44 Problems (Last Updated 11/29/23 @ 21:09 by Abbie Brown DO) Sepsis (Acute) Necrotizing soft tissue infection (Acute) PVD (peripheral vascular disease) (Chronic) Stasis dermatitis of both legs (Acute) On prednisone therapy (Acute) Ex-cigarette smoker (Acute) Peripheral edema (Acute) TEENA (obstructive sleep apnea) (Chronic) Morbid obesity (Acute) COPD (chronic obstructive pulmonary disease) (Acute) Notes 11/29/23 12:38 Nursing Notes by Cortney Saunders Nursing Note: Pt wanted to know what her hospital diet consisted of. Nursing staff notified pt that she is currently on a diabetic diet. Pt stated she does not understand and is not happy about the diet. Pt stated that she does not manage bs at home. Pt stated that will will still be drinking coffee with sugar when her daughter brings it. Initialized on 11/29/23 12:38 - END OF NOTE v v v v v v v v v Sending and/or Receiving Nurses: Please use comment section below to note any information pertinent to the patient hand-off not included above. Information / Comments: Report received from: Alicia
[2023-12-01 07:58] VITALS: BP 95/56; PULSE 72; RESP 18; TEMP 35.9; O2SAT 94
--- NOTE | 2023-12-01 08:59 | RESPIRATORY ---
Addendum entered by Alka Zapata 12/01/23 09:01: Pt had sleep study and CPAP machine at one point but returned the machine as she couldn't tolerate it (pressures, leak, felt like it was taking her breath away) Original Note: Pt wears 3L oxygen at night. DME: [employer]
[2023-12-01] MEDS: Budesonide/Formoterol 80/4.5 6.9 GM 60 PUFF INH IH ×2 (09:02→19:52)
[2023-12-01] MEDS: Tiotropium Bromide-Respimat 10 PUFF INH 2 PUFF IH (09:02)
[2023-12-01] MEDS: Enoxaparin 40 MG/0.4 ML SYR SC ×2 (09:13→21:39)
[2023-12-01] MEDS: Ibuprofen 800 MG TAB PO ×2 (09:13→21:38)
[2023-12-01] MEDS: Normal Saline Flush 10 ML SYR IVP ×4 (09:14→21:37)
[2023-12-01 11:06] VITALS: BP 108/66; PULSE 74; RESP 18; TEMP 36.9; O2SAT 94
--- NOTE | 2023-12-01 11:49 | W.PM.PROGNOT ---
Date of Service Date of service: 12/01/23 Time of Service: 11:49 Assessment and Plan Assessment and plan (1) Venous insufficiency: Status: Acute (2) Stasis dermatitis of both legs: Status: Acute (3) PVD (peripheral vascular disease): Status: Chronic (4) On prednisone therapy: Status: Acute (5) Morbid obesity: Status: Acute (6) Necrotizing soft tissue infection: Status: Acute Assessment and plan: Postop day #3 from I&D of abscess Continue Vanco and and Zosyn Plan discharge Monda she will need home care Supportive care Put her back on metformin and add lactobacillus PT for ambulation encourage ambulation in the hallway. Patient has very fragile COPD. She is not currently on steroids and no signs of exacerbation. (7) Abscess of right thigh: Status: Acute (8) Infectious fasciitis: Status: Acute (9) COPD (chronic obstructive pulmonary disease): Status: Acute Qualifiers: COPD type: emphysema Emphysema type: unspecified Qualified Code(s): J43.9 - Emphysema, unspecified (10) TEENA (obstructive sleep apnea): Status: Chronic Subjective Subjective Interval history since last seen: Pt is doing well. no headaches. No CP or SOB. no productive cough. no dysuria. no leg pain or swelling. Continues tolerating packing and dressing changes better. Nurses changed packing today. There is significantly less edema in the leg today. Patient notes increased frequency in urination. This is most likely due to release of fluid through the soft tissue. She has not noted any urinary frequency or urgency. Exam Const Other: Lungs are clear to auscultation No thrush. No diarrhea Abdomen is nontender I did not visualize the wound today. Nursing reports that is looking good with minimal redness. Patient notes she is still having high amounts of drainage. She assures that this is normal Objective Last Vital Signs Temp 36.9 C 12/01/23 11:06 Pulse 74 12/01/23 11:06 Resp 18 12/01/23 11:06 BP 108/66 12/01/23 11:06 Pulse Ox 94 12/01/23 11:06 Laboratory Results - last 24 hr 11/30/23 12/01/23 13:00 06:40 WBC 13.65 H RBC 4.93 Hgb 13.6 Hct 42.8 MCV 87 MCH 27.6 MCHC 31.8 L RDW 13.8 Plt Count 126 L MPV 9.6 Immature Gran % 0.9 Neutrophils % 81.5 Lymphocytes % 9.7 Monocytes % 7.3 Eosinophils % 0.2 Basophils % 0.4 Nucleated RBC % 0.0 Absolute Neutrophils 11.12 H Absolute Lymphocytes 1.32 Absolute Monocytes 1.00 H Absolute Eosinophils 0.03 Absolute Basophils 0.05 C-Reactive Protein 15.67 H Vancomycin Trough 20.1 H Time Spent with Patient Time Spent with Patient: 25-34 minutes Time was spent: preparing to see the patient(eg.review tests), obtaining and/or reviewing separately otained hiistory, ordering medications,tests, procedures, referring, communicating with other health residential care facility manager, indepentently interpreting results, counseling the patient, care coordination and other
[2023-12-01 14:46] VITALS: BP 108/68; PULSE 68; RESP 18; TEMP 37.2; O2SAT 95
[2023-12-01 19:30] VITALS: BP 128/64; PULSE 73; RESP 18; TEMP 36.1; O2SAT 94
[2023-12-01] MEDS: metFORMIN 500 MG TAB PO (21:38)
[2023-12-01 23:12] VITALS: BP 137/59; PULSE 76; RESP 18; TEMP 36.1; O2SAT 94
[2023-12-02] VITALS (7 sets, daily range): BP systolic 107–139; BP diastolic 61–72; PULSE 64–76; RESP 17–19; TEMP 36.1–36.8; O2SAT 92–94
[2023-12-02] MEDS: Normal Saline Flush 10 ML SYR IVP ×4 (00:58→21:37)
[2023-12-02] MEDS: PIPERACILLIN/TAZO 3.375 GM in Normal Saline 50 ML IVPB ×4 (02:48→20:13)
[2023-12-02] MEDS: VANCOMYCIN/WATER (PEG) 1 GM/200 ML BAG IV ×3 (05:46→21:40)
[2023-12-02] MEDS: Acetaminophen 500 MG TAB 1000 MG PO ×3 (05:46→21:39)
[2023-12-02 06:03] LABS: Vancomycin, Trough 18.9 ug/mL (10.0-20.0)
[2023-12-02] MEDS: Budesonide/Formoterol 80/4.5 6.9 GM 60 PUFF INH IH ×2 (08:08→20:01)
[2023-12-02] MEDS: Tiotropium Bromide-Respimat 10 PUFF INH 2 PUFF IH (08:08)
[2023-12-02] MEDS: metFORMIN 500 MG TAB PO ×2 (09:01→21:39)
[2023-12-02] MEDS: Ibuprofen 800 MG TAB PO ×2 (09:01→21:38)
[2023-12-02] MEDS: Enoxaparin 40 MG/0.4 ML SYR SC ×2 (09:02→21:40)
[2023-12-02] MEDS: HYDROmorphone 2 MG/ML SYR 0.5 MG IVP (09:41)
--- NOTE | 2023-12-02 10:39 | PGE_ITS ---
Date of Service Date of service: 12/02/23 Time of Service: 10:39 Assessment and Plan Assessment and plan (1) Venous insufficiency: Status: Acute (2) Stasis dermatitis of both legs: Status: Acute (3) PVD (peripheral vascular disease): Status: Chronic (4) Venous stasis dermatitis: Status: Acute (5) Thrombocytopenia: Status: Chronic (6) On prednisone therapy: Status: Acute Assessment and plan: Patient is not currently on any prednisone therapy (7) Morbid obesity: Status: Acute (8) Necrotizing soft tissue infection: Status: Acute (9) Abscess of right thigh: Status: Acute Assessment and plan: - Continue vancomycin and Zosyn while she is in the hospital. Will probably just send her home. Does not have diarrhea from the antibiotics and is tolerating them well. We discussed what she could expect at home. Walking is encouraged. We will put her back on her azithromycin at home she will have home health come in for dressing change. She will need to follow-up with her PCP next week. She should also contact her pulmonary team and follow-up with them as well. She will follow-up with our office next week We discussed what she could expect with wound care, activities, bathing, warning signs she is doing quite well at this point in a.m. dissipate discharge tomorrow unless there are some mitigating factors and changes in her progress throughout the course of the next 24 hours. (10) Infectious fasciitis: Status: Acute (11) COPD, frequent exacerbations: Status: Acute (12) TEENA (obstructive sleep apnea): Status: Chronic (13) Ex-cigarette smoker: Status: Acute Subjective Subjective Interval history since last seen: Patient notes significantly lessPt is doing well. no headaches. No CP or SOB. no productive cough. no dysuria. no leg pain or swelling. Pain notes less pain with dressing changes. She is still having quite a bit of drainage. This is normal given the abundance of adipose tissue which is more prone to drainage Nursing that her dressing changes today. Per nursing there is a significantly less amount of redness and swelling. On physical exam she has significant reduction in edema of the left lower extremity. Her pain is significantly improved. She denies any shortness of breath or productive cough and feels her COPD is stable. Objective Last Vital Signs Temp 36.8 C 12/02/23 07:29 Pulse 67 12/02/23 07:29 Resp 18 12/02/23 07:29 BP 117/70 12/02/23 07:29 Pulse Ox 93 12/02/23 07:29 Laboratory Results - last 24 hr 12/02/23 05:00 Vancomycin Trough 18.9 Time Spent with Patient Time Spent with Patient: 25-34 minutes Time was spent: preparing to see the patient(eg.review tests), obtaining and/or reviewing separately otained hiistory, ordering medications,tests, procedures, referring, communicating with other health adult live in caregiver, indepentently interpreting results, counseling the patient, care coordination and other
--- NOTE | 2023-12-02 12:08 | PDOC.HHF2F_ITS ---
Home Health Referral Home Health Orders Clinical synopsis of why skilled professionals are needed: Necrotizing fasciitis with open draining wound that we need daily packing changes and close observation for now recrudescence of infection. Medical diagnosis necessitation home health referral: Necrotizing fasciitis and abscess with open draining wound Severe oxygen dependent COPD Morbid obesity Diabetes mellitus Limited mobility Registered Nurse: Check all that apply Instruct on new or changed medication(s)/assess compliance: Ordered Assess for exacerbation of medical condition, instruct patient/caregivers on signs and symptoms to report for early detection: Ordered Assess wound for signs and symptoms of infection, instruct on wound care and/or provide skilled wound care consisting of: D daily packing and wound [facility] Bound Status Requires the aid of supportive device (check all that apply): Cane Patient has a condition such that leaving home is medically contraindicated (Describe): cannot drive Describe why leaving home would require a considerable and taxing effort: Side effects from pain medication (sedation/drowsiness), Requires frequent rest periods and Oxygen Encounter Date and Reason: I certify that a FTF encounter for this patient was performed on December 02, 2023 and that such encounter was related to the primary reason the patient requires home health services. The encounter was conducted in the following manner: * By me as the certifying physician, INTERNET MARKETING EXECUTIVE, PA or * By an inpatient physician, INTERNET MARKETING EXECUTIVE or PA during an inpatient stay who communicated findings to me, Certification And Authentication I certify that I composed the above information based on my clinical judgment relating to this patient's medical condition and, if applicable, clinical fi ndings communicated to me by the NPP or inpatient physician who performed the FTF encounter. Name of Provider that will be monitoring home health services: Abbie Brown
[2023-12-03] MEDS: PIPERACILLIN/TAZO 3.375 GM in Normal Saline 50 ML IVPB ×2 (02:05→07:53)
[2023-12-03 03:50] VITALS: BP 135/71; PULSE 71; RESP 17; TEMP 36.4; O2SAT 97
[2023-12-03] MEDS: Acetaminophen 500 MG TAB 1000 MG PO (06:13)
[2023-12-03] MEDS: VANCOMYCIN/WATER (PEG) 1 GM/200 ML BAG IV (06:14)
[2023-12-03 06:18] LABS: Vancomycin, Trough 18.5 ug/mL (10.0-20.0)
[2023-12-03] MEDS: metFORMIN 500 MG TAB PO (07:52)
[2023-12-03] MEDS: Normal Saline Flush 10 ML SYR IVP ×2 (07:53→09:36)
[2023-12-03] MEDS: Tiotropium Bromide-Respimat 10 PUFF INH 2 PUFF IH (07:56)
[2023-12-03 07:57] VITALS: O2SAT 96
[2023-12-03] MEDS: Budesonide/Formoterol 80/4.5 6.9 GM 60 PUFF INH IH (07:57)
[2023-12-03 08:01] VITALS: BP 127/67; PULSE 67; RESP 18; TEMP 36.7; O2SAT 92
[2023-12-03] MEDS: Ibuprofen 800 MG TAB PO (09:24)
[2023-12-03] MEDS: Enoxaparin 40 MG/0.4 ML SYR SC (09:24)
[2023-12-03] MEDS: HYDROmorphone 2 MG/ML SYR 0.5 MG IVP (09:35)
[2023-12-03 11:37] VITALS: BP 129/72; PULSE 72; RESP 17; TEMP 36.5; O2SAT 94
--- NOTE | 2023-12-03 12:28 | W.PM.PROGNOT ---
Date of Service Date of service: 12/03/23 Time of Service: 12:28 Assessment and Plan Assessment and plan (1) Abscess of right thigh: Status: Acute Assessment and plan: She is doing great after incision and drainage, with frequent dressing changes. Microbiology so far is just heavy anaerobic growth, which seems to have responded to Vanco and Zosyn. Will switch her over to Augmentin, discharged home with outpatient follow-up. Subjective Subjective Interval history since last seen: Fadia is feeling much better. She denies any pain, with the exception of some dressing changes, which otherwise are tolerated. She denies any nausea or vomiting or subjective sense of fevers. Exam Skin Other: The erythema has nearly completely resolved. She still has some tenderness around the incision and drainage site. Dressings are serosanguineous. Objective Last Vital Signs Temp 97.7 F 12/03/23 11:37 Pulse 72 12/03/23 11:37 Resp 17 12/03/23 11:37 BP 129/72 12/03/23 11:37 Pulse Ox 94 12/03/23 11:37 Laboratory Results - last 24 hr 12/03/23 05:00 Vancomycin Trough 18.5 Time Spent with Patient Time Spent with Patient: <25 minutes Time was spent: preparing to see the patient(eg.review tests), indepentently interpreting results and counseling the patient
--- NOTE | 2023-12-03 12:29 | W.PM.DS.N ---
Date of service: 12/03/23 Time of Service: 12:30 DS: Diagnosis Discharge Diagnosis (1) Abscess of right thigh: Status: Acute Asessment and Plan: Discharge home with visiting nurses, and outpatient follow-up Discharge Plan Disposition Patient Disposition: Home W/Home Health Services Condition: Improving Discharge Details Reason For Visit: Necrotizing soft tissue infection Admit Date/Time: 11/28/23 18:22 Admit Provider: Dar Springer Attending Provider: Dar Springer Primary Care Provider: [facility] Hospital Course Hospital Course: Fadia is 63 years old, she came to the emergency department with pain, swelling, and drainage from a skin wound on the medial aspect of her left thigh. She was started on broad-spectrum antibiotics, admitted, and she underwent incision and drainage of an abscess in the anterior medial left thigh. She remained in the hospital for intravenous antibiotics, and frequent dressing changes. By the day of discharge, she was nearly pain-free in the left thigh, and her fevers had resolved. Microbiology demonstrated anaerobic bacteria, which seems to be responding to Zosyn. She switched over to Augmentin and discharged home. Home Meds and New Rx's Prescriptions: New amoxicillin-pot clavulanate 875-125 mg tablet 1 tab PO BID Qty: 10 0RF Rx Instructions: Take 1 tablet by mouth in the morning, 1 tablet by mouth in the evening. hydromorphone [Dilaudid] 2 mg tablet 2 mg PO DAILY Qty: 7 0RF Rx Instructions: Take 1 tablet by mouth approximately 30 minutes prior to dressing changes. It is okay to split these tablets in half over the coming days, if the smaller doses tolerated Continued (DME) Oxygen Tank See Rx Instructions .ROUTE .MEDSUPPLY Qty: 1 Rx Instructions: As directed, 2L supplemental oxygen with conserving device on exertion. metformin 500 mg tablet 500 mg PO BID albuterol sulfate [Ventolin HFA] 90 mcg/actuation HFA aerosol inhaler See Rx Instructions .ROUTE .COMPLEX Qty: 18 12RF Dose Instruction: INHALE 2 PUFFS BY MOUTH EVERY 4 HOURS NEEDED FOR SHORTNESS OF BREATH OR WHEEZING Rx Instructions: INHALE 2 PUFFS BY MOUTH EVERY 4 HOURS NEEDED FOR SHORTNESS OF BREATH OR WHEEZING budesonide-formoterol [Symbicort] 80-4.5 mcg/actuation HFA aerosol inhaler See Rx Instructions .ROUTE .COMPLEX Qty: 10.2 12RF Dose Instruction: INHALE TWO PUFFS BY MOUTH TWICE A DAY Rx Instructions: INHALE TWO PUFFS BY MOUTH TWICE A DAY Spiriva Respimat 2.5 mcg/actuation mist See Rx Instructions .ROUTE .COMPLEX Qty: 12 12RF Dose Instruction: INHALE TWO PUFFS BY MOUTH EVERY DAY Rx Instructions: INHALE TWO PUFFS BY MOUTH EVERY DAY azithromycin 250 mg tablet 250 mg PO DAILY Qty: 90 12RF Rx Instructions: Take one tablet daily ipratropium-albuterol 0.5 mg-3 mg(2.5 mg base)/3 mL solution for nebulization 3 ml IH QID PRN (Reason: shortness of breath) Qty: 540 12RF ibuprofen 800 mg tablet 800 mg PO Q12H PRN Patient Comments: TAKE ONE TABLET BY MOUTH THREE TIMES A DAY NEEDED Discharge Instructions Instructions: Abscess Incision and Drainage (DC) Additional Instructions: Fadia, it was a pleasure to meet you in the hospital, and I am sorry that you are dealing with an infection in your thigh. As you probably remember, you underwent incision and drainage of a pocket of infected tissue. You are also started on some antibiotics to help heal the infection. The lab tested the fluid that we drained out, and it showed a group of bacteria called anaerobes. You seem to be responding favorably to the antibiotics (in addition to the drainage) and will continue the antibiotics for 5 more days, completing a total of 10 days of therapy. As you have already experienced, with regards to the wound, changing the dressings to help promote drainage and allow the tissue to heal is an important part of your treatment. We have arranged for a visiting nurse to come to the house to help with these dressing changes. I also provided a prescription for some pain medications that you can take prior to the bandage changes. That medication is quite strong, so please be careful using it. Do not drive while you are using it. You can absolutely break the tablets in half if you find that you do not need a full dose. I also recommend using Tylenol and ibuprofen as we discussed to help control the discomfort. He will be following up in the office on December 12 at 8:15 in the morning with Patricia Rosado, one of our physicians assistants, who is one of the specialists and wound care. We look forward to seeing you at that visit. If you need anything at all in the meantime, please do not hesitate to call or ask at any point. Referrals: Ptaricia Rosado PA [[employer]] - (December 12 at 8:15 AM) Activity:: Activity as Tolerated Equipment/Supplies:: No Equipment Needed Diet:: As Tolerated DS: Summary Time Spent with Patient providing and/or coordinating discharge services: Less than 30 minutes Status at Discharge Functional status at discharge: independent ambulation Overall status at discharge: patient is progressing back to baseline Mental Status: mental status grossly normal Speech and Movement: speech and movement normal Mood: congruent mood Affect: normal affect Quality:SDOH Health Related Social Needs: No Data to Display Exam Skin Other: Erythema around the incision site has resolved. She still is a little bit of tenderness. No swelling. Psych Mental Status: mental status grossly normal Speech and Movement: speech and movement normal Mood: congruent mood Affect: normal affect DS: Data Vitals/I&O Vitals and I&O: Vital Signs Temperature 97.7 F 12/03/23 11:37 Temperature Source Skin 12/03/23 11:37 Pulse 72 12/03/23 11:37 Pulse Rhythm Regular 12/03/23 09:07 Respiratory Rate 17 12/03/23 11:37 Respiratory Effort Normal, Non-Labored 12/03/23 09:07 Respiratory Depth Normal 12/03/23 09:07 Respiratory Pattern Normal 12/03/23 09:07 Blood Pressure 129/72 12/03/23 11:37 Blood Pressure Mean 64 11/28/23 17:31 Blood Pressure Position Sitting 11/28/23 11:16 Pulse Oximetry 94 12/03/23 11:37 Oxygen Delivery Method Room Air 12/03/23 11:37 Oxygen Flow Rate 0 12/03/23 11:37 Pain Level 0 12/03/23 08:01 Comment 02 was put on pT while they were asleep in chair 12/01/23 11:06 Intake & Output 12/02/23 12/03/23 12/03/23 23:59 11:59 23:59 Intake Total 500 / 1050 300 / 300 Output Total 200 / 1000 1000 / 1000 Balance 300 / 50 -700 / -700 Intake: IV 500 / 1050 300 / 300 Output: Urine 200 / 1000 1000 / 1000 Other: Urine Color Yellow Yellow Urine Appearance Cloudy Clear Urine Odor Normal None Stool Characteristics Soft Hard Liquid Voiding Methods Bedside Commode Toilet Data Completed and Pending Labs on day of discharge: Labs from last 24 hours 12/03/23 05:00 Vancomycin Trough 18.5 Preliminary micro results at discharge 11/28/23 11:53 Blood Culture - Preliminary Blood NO GROWTH 96 HOURS 11/28/23 11:40 Blood Culture - Preliminary Blood NO GROWTH 96 HOURS PFSH All Active Problems Infectious fasciitis (Acute) Abscess of right thigh (Acute) Necrotizing soft tissue infection (Acute) Thrombocytopenia (Chronic) Venous stasis dermatitis (Acute) Internal hemorrhoids (Acute) Tension headache (Acute) Pulmonary nodule (Acute) Leg cramping (Acute) Nail dystrophy (Acute) PVD (peripheral vascular disease) (Chronic) COPD, frequent exacerbations (Acute) Stasis dermatitis of both legs (Acute) Venous insufficiency (Acute) On prednisone therapy (Acute) Edema (Acute) Ex-cigarette smoker (Acute) Peripheral edema (Acute) TEENA (obstructive sleep apnea) (Chronic) Morbid obesity (Acute) COPD (chronic obstructive pulmonary disease) (Acute) 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 Patient was referred to urology at [facility] for assessment and treatment Tobacco use 01/2019 patient reports 2 cigarettes/day Surgical History Fistula, anal Repaired with 2003 H/O tubal ligation 1986 Family History Father , age 59 Cancer brain cancer. Mother , age 63 Cancer Lung cancer. COPD (chronic obstructive pulmonary disease) Sister Hypertension Brother Hypertension Heart disease Heart failure, heart disease. Social History Smoking/Tobacco Use Status: Former Tobacco Use Quit Date: 04/13/20 Pack-years: 40 Smoking risk assessment performed?: Yes Alcohol Intake: never Drug use: Never Substance use type: does not use Housing: house Pets and animals: Yes (5 cats, 1 dog) Pets and animals: cat(s) and dog(s) Current gender identity: female Do you feel safe at home: Yes Do you feel safe in your relationship?: Yes History History 4 Para Hx # Term Pregnancies 2 Multiple births Hx # Pregnancies Ectopic pregnancies AB induced Hx Number of Living Children AB spontaneous Time Spent with Patient Time Spent with Patient: <45 minutes Time was spent: preparing to see the patient(eg.review tests), referring, communicating with other health manager of care, indepentently interpreting results, counseling the patient and care coordination
--- NOTE | 2023-12-03 14:09 | PDOC.HHF2F_ITS ---
Home Health Referral Home Health Orders Clinical synopsis of why skilled professionals are needed: Fadia has a necrotizing soft tissue infection that required incision and drainage. It has been managed with wound packing. It is in the location on her body that is impossible for her to change on her own. She does not have other assistance at home that can help with this wound. Medical diagnosis necessitation home health referral: Abscess of the left thigh, oxygen dependent COPD with limited mobility Registered Nurse: Check all that apply Instruct on new or changed medication(s)/assess compliance: Ordered (Fadia has a surgical wound on the medial aspect of her left thigh. It requires removal of packing, irrigation with saline solution, and repacking with half-inch iodoform gauze. This should be performed every other day.) Assess for exacerbation of medical condition, instruct patient/caregivers on signs and symptoms to report for early detection: Ordered Home Bound Status Requires the aid of supportive device (check all that apply): Cane Patient has a condition such that leaving home is medically contraindicated (Describe): cannot drive, severe COPD, obesity Encounter Date and Reason: I certify that a FTF encounter for this patient was performed on December 03, 2023 and that such encounter was related to the primary reason the patient requires home health services. The encounter was conducted in the following manner: * By me as the certifying physician, TRAFFIC CONTROL OFFICER, PA or * By an inpatient physician, TRAFFIC CONTROL OFFICER or PA during an inpatient stay who communicated findings to me, Certification And Authentication I certify that I composed the above information based on my clinical judgment relating to this patient's medical condition and, if applicable, clinical findings communicated to me by the NPP or inpatient physician who performed the FTF encounter. Name of Provider that will be monitoring home health services: Dar Springer
--- NOTE | 2023-12-03 14:30 | PDOC.CMDIS ---
Date of service: 12/03/23 Time of Service: 14:30 LACE Index Scoring Tool Questions: Length of Stay (in days): 4 - 6 Was the patient admitted via the E.D.?: Yes Comorbidities: PVD E.D. Visits: 1 Answers: Total Score: 9 Risk of Readmission: Low Risk Care Management Discharge Plan Reason for Hospitalization: Necrotizing soft tissue infection Discharge Plan: Fadia is discharged home with [facility] RN services to support medication management. Pt is transported via private vehicle with family. Pt will follow up with her PCP and discharge plan of care as instructed. Patient/Family Education Needs: Review discharge instructions, limitations, medications and plan to follow up with community providers. Discuss ask me three and goals of self care. Services Needed at Discharge: Home Health Care Services ([facility] RN) SDOH Health Related Social Needs: No Data to Display
== END 2023-12-03 13:22 | disposition home health service (06) ==
LOC: ER 13:03 → DSU 17:53 → MS 18:32
PROVIDERS: Surgery; Admitting Provider Surgery; Emergency Provider Student in an Organized Health Care Education/Training Program; PCP Nurse Practitioner Family; Visit Provider Surgery
PROC: (CPT 10060; principal; 2023-11-28 17:10)
DX: M72.6 Necrotizing fasciitis (principal); L02.416 Cutaneous abscess of left lower limb; D69.6 Thrombocytopenia, unspecified; E66.01 Morbid (severe) obesity due to excess calories; Z68.43 Body mass index [BMI] 50.0-59.9, adult; I87.2 Venous insufficiency (chronic) (peripheral); R91.1 Solitary pulmonary nodule; R25.2 Cramp and spasm; I73.9 Peripheral vascular disease, unspecified; Z87.891 Personal history of nicotine dependence; R60.0 Localized edema; G47.33 Obstructive sleep apnea (adult) (pediatric); B07.9 Viral wart, unspecified; Z79.52 Long term (current) use of systemic steroids; J43.9 Emphysema, unspecified
CPT/HCPCS: 10060; 00123; 36415; 80053; 84145; 87040; 87635; 87641; 94640; 96361; 96365; 96366; 96367; 96372; 96375; 96376; 97161; 99291; J1650; 73701; 80202; 83605; 85025; 86140; 87070; 87075; 87205; 94664; 94667; 94668; 94760; G0378; J0131; J0692; J0737; J1100; J1170; J1815; J2001; J2250; J2405; J2543; J2704; J3370; J3372; J3490; J7620

== ENCOUNTER 2024-02-15 12:33 | Outpatient (REF) | payer MEDICAID, SELFPAY ==
[2024-02-15 15:54] LABS: ESR 44 mm/hr (0-30)
[2024-02-15 15:56] LABS: HCT 52.1 % (36.0-46.0); HGB 16.2 g/dL (11.2-15.7); MCH 27.6 pg (27.0-33.0); MCHC 31.1 % (32.0-36.0); MCV 89 fL (80-95); MPV 11.6 fL (8.0-11.0); RBC 5.86 10^6/uL (3.93-5.22); RDW 13.7 % (11.7-14.6); RDW-SD 44.7 fL; WBC 12.29 10^3/uL (4.4-10.8)
[2024-02-15 16:12] LABS: ALT 19 U/L (14-59); AST 15 U/L (15-37); Albumin 3.5 g/dL (3.4-5.0); Alkaline Phosphatase 152 U/L (46-116); Anion Gap 9.5 mmol/L (3-11); BUN 18 mg/dL (7-18); Bilirubin, Total 0.62 mg/dL (0.2-1.0); C-Reactive Protein 3.51 mg/dL (<or=0.5); CO2 30.5 mmol/L (21.0-32.0); CREATININE 0.8 mg/dL (0.55-1.02); Calcium 8.9 mg/dL (8.5-10.1); Chloride 105 mmol/L (98-107); Creatine Kinase 63 U/L (26-192); Estimated GFR 83.78 (mL/min/1.73m2); Glucose 84 mg/dL (74-106); Sodium 145 mmol/L (136-145)
[2024-02-15 16:22] LABS: Platelet Count 77 10^3/uL (130-400)
== END 2024-02-15 12:34 | disposition home or self-care (01) ==
LOC: NCHCN 12:33
PROVIDERS: PCP Nurse Practitioner Family; Visit Provider Family Medicine
DX: M25.59 Pain in other specified joint (principal)
CPT/HCPCS: 80053; 82550; 85027; 85652; 86140

== ENCOUNTER 2024-03-14 11:36 | Outpatient (CLI) | payer MEDICAID, SELFPAY ==
--- NOTE | 2024-03-14 | DI.RAD_ITS ---
Exam(s) XR KNEE LT 3V AP,LAT,BRITNEY EXAM: XR KNEE LT 3V AP,LAT,BRITNEY CLINICAL HISTORY: PAIN KNEE M25.569. TECHNIQUE: 2D digital imaging was performed. Three views. COMPARISON: No exams were available for comparison FINDINGS: BONES: No acute fracture is present. No bony destructive lesion is seen. JOINTS: The knee is normally aligned. No joint effusion is seen. Femoral tibial joint spaces are ma intained and show mild periarticular spurring. Spurring at the patellofemoral joint which may be marisela ewhat narrowed. SOFT TISSUE: Normal. IMPRESSION: Degenerative changes of the patellofemoral joint. DATA REPOSITORY: RADIATION DOSE DELIVERED:
== END 2024-03-14 11:56 ==
LOC: DI 11:37
PROVIDERS: PCP Nurse Practitioner Family; Visit Provider Nurse Practitioner Family
DX: M17.12 Unilateral primary osteoarthritis, left knee (principal)
CPT/HCPCS: 73562

== ENCOUNTER 2024-03-14 11:59 | Outpatient (REF) | payer MEDICAID, SELFPAY ==
[2024-03-14 16:24] LABS: Abs Immature Grans 0.12 10^3/uL (0.0-0.06); Absolute Basophil Count 0.05 10^3/uL (0.0-0.2); Absolute Eosinophil Count 0.02 10^3/uL (0.0-0.7); Absolute Lymphocyte Count 0.87 10^3/uL (1.2-3.4); Absolute Monocyte Count 0.38 10^3/uL (0.1-0.8); Basophils % 0.4 %; Eosinophils % 0.2 %; HCT 53.7 % (36.0-46.0); HGB 16.8 g/dL (11.2-15.7); Lymphocytes % 7.3 %; MCH 28.1 pg (27.0-33.0); MCHC 31.3 % (32.0-36.0); MCV 90 fL (80-95); MPV 11.7 fL (8.0-11.0); Monocytes % 3.2 %; Neutrophils % 87.9 %; RBC 5.98 10^6/uL (3.93-5.22); RDW 14.2 % (11.7-14.6); WBC 11.95 10^3/uL (4.4-10.8)
[2024-03-14 16:37] LABS: Diff Comment PLT Morph Reviewed; Platelet Count 88 10^3/uL (130-400); RBC Morphology Normal
== END 2024-03-14 12:00 | disposition home or self-care (01) ==
LOC: NCHCN 11:59
PROVIDERS: PCP Nurse Practitioner Family; Visit Provider Nurse Practitioner Family
DX: M25.561 Pain in right knee (principal)
CPT/HCPCS: 85025